=== PATIENT | male | born 1980 | race Caucasian/White ===

== ENCOUNTER 2019-10-20 21:07 | Emergency (ER) | payer BC ==
[2019-10-20] MEDS ORDERED: SODIUM CHLORIDE 0.9% 1,000 ML IV STA (22:05)
--- NOTE | 2019-10-20 22:05 | ED ---
Weakness HPI - General Chief complaint: Weakness Stated complaint: Dizziness/Sob Time Seen by Provider: 10/20/19 21:25 Source: patient, family Mode of arrival: wheelchair Limitations: no limitations - History of Present Illness Initial comments: The patient is a 39-year-old male with past medical history of hypertension and GERD who presents to the emergency room with reported weakness and vertiginous symptoms. The patient was recently hospitalized at [facility] for 6 days. He was diagnosed with pneumonia. He is placed on antibiotics and steroids. Care bronchoscopy performed on Monday which was done under procedural sedation. States he awoke from this procedure and felt terrible however he was discharged from the hospital. Over the past 2 days at home he has had difficulties with ambulation. He states that he can't get up out of bed without feeling is that the room is spinning on him. He also reports to feeling off balance with the sensation that he is cannot pass out. He has been using a urinal at home because of his fear of ambulating. He also reports to a cough, congestion and burning sensation in his chest. He admits to a mild frontal headache. Denies any visual changes. No neck pain or stiffness. Denies abdo angel pain or changes in his bowel or bladder habits. No fevers or chills. He went back into [facility] today however he felt as if they are very dismissive towards him. Boyfriend is at bedside and states that the patient's has been unable to care for himself because of his symptoms. There are no other alleviating, precipitating or modifying factors - Related Data Allergies Allergy/AdvReac Type Severity Reaction Status Date / Time cephalexin [From Keflex] Allergy Rash/Hives Verified 10/20/19 21:23 Penicillins Allergy Rash/Hives Verified 10/20/19 21:23 Review of Systems ROS Statement: Those systems with pertinent positive or pertinent negative responses have been documented in the HPI. ROS Other: All systems not noted in ROS Statement are negative. Past Medical History Past Medical History: Hypertension Additional Past Medical History / Comment(s): kidney stones History of Any Multi-Drug Resistant Organisms: None Reported Past Surgical History: Hernia Repair Past Psychological History: No Psychological Hx Reported Smoking Status: Never smoker Past Alcohol Use History: None Reported Past Drug Use History: None Reported General Exam Limitations: no limitations General appearance: alert, in no apparent distress Head exam: Present: atraumatic, normocephalic, normal inspection Eye exam: Present: normal appearance, PERRL, EOMI. Absent: scleral icterus, conjunctival injection, periorbital swelling ENT exam: Present: normal exam, mucous membranes moist Neck exam: Present: normal inspection. Absent: tenderness, meningismus, lymphadenopathy Respiratory exam: Present: normal lung sounds bilaterally. Absent: respiratory distress, wheezes, rales, rhonchi, stridor Cardiovascular Exam: Present: regular rate, normal rhythm, normal heart sounds. Absent: systolic murmur, diastolic murmur, rubs, gallop, clicks GI/Abdominal exam: Present: soft, normal bowel sounds. Absent: distended, tenderness, guarding, rebound, rigid Extremities exam: Present: normal inspection, full ROM, normal capillary refill. Absent: tenderness, pedal edema, joint swelling, calf tenderness Back exam: Present: normal inspection Neurological exam: Present: alert, oriented X3, CN II-XII intact, abnormal gait, other (The patient does reports truncal ataxia when upright in bed. Ambulation shows the patient does repeatedly fall to the right side. Patient unwilling to perform heel to ron stating he was too weak. Finger to nose is symmetric bilaterally. No lateralizing symptoms. 5/5 muscle strength in all 4 extremities) Psychiatric exam: Present: normal affect, normal mood Skin exam: Present: warm, dry, intact, normal color. Absent: rash Course Vital Signs 10/20/19 21:23 Temperature 97.9 F Pulse Rate 81 Respiratory 18 Rate Blood Pressure 130/87 O2 Sat by Pulse 97 Oximetry EKG Findings - EKG Comments: EKG Findings:: EKG demonstrated normal sinus rhythm with a ventricular rate of 81. [place] interval 152. QRS 80. QTC of 413. No acute ST segment elevations or depressions concerning for ischemic changes. Inferior lead 3 has a Q wave with an inverted T-wave Medical Decision Making - Medical Decision Making Upon arrival the patient is placed into room 23. I did review his paperwork from [facility]. I did recommend repeating laboratory studies and a chest x-ray. Because the patient's vertiginous symptoms I also recommended CT imaging of the brain. Peripheral IV was difficult to establish. Once placed he was given a liter bolus of normal saline. I did offer to provide him with a dose of Valium however the patient did have sedation medication on Monday and states he did not react well to it. Therefore I did give the patient's a dose of meclizine. Laboratory studies are remarkable for a sodium of 133. TSH is 5.5 with a free T4 of 1.4. Urinalysis is negative. Influenza A and B are not detected. chest x-ray demonstrates no acute intrathoracic process. No infiltrate identified. CT angiography of the patient's brain demonstrates no acute strictures or aneurysms of the head or neck. The patient is reevaluated and reports to only mild improvement with the meclizine. I do have the patient sit up in bed. He states he immediately begins to have room spinning. He then attempts to ambulate however continues to fall to the right side. I discussed the diagnosis, differential and treatment options. Because of the patient's symptoms I did recommend transfer to an outside facility with neurology capabilities. I informed him the possible need for an MRI. The patient will go by ambulance. Family at bedside was in agreement with the treatment plan. The patient is currently awaiting transfer in stable condition - Lab Data Result diagrams: 10/20/19 22:47 10/20/19 23:33 Lab Results 10/20/19 10/20/19 10/20/19 Range/Units 00:00 22:42 22:42 WBC (3.8-10.6) k/uL RBC (4.30-5.90) m/uL Hgb (13.0-17.5) gm/dL Hct (39.0-53.0) % MCV (80.0-100.0) fL MCH (25.0-35.0) pg MCHC (31.0-37.0) g/dL RDW (11.5-15.5) % Plt Count (150-450) k/uL Neutrophils % % Lymphocytes % % Monocytes % % Eosinophils % % Basophils % % Neutrophils # (1.3-7.7) k/uL Lymphocytes # (1.0-4.8) k/uL Monocytes # (0-1.0) k/uL Eosinophils # (0-0.7) k/uL Basophils # (0-0.2) k/uL PT (9.0-12.0) sec INR (<1.2) APTT (22.0-30.0) sec Sodium (137-145) mmol/L Potassium (3.5-5.1) mmol/L Chloride (98-107) mmol/L Carbon Dioxide (22-30) mmol/L Anion Gap mmol/L BUN (9-20) mg/dL Creatinine (0.66-1.25) mg/dL Est GFR (CKD-EPI)AfAm (>60 ml/min/1.73 sqM) Est GFR (CKD-EPI)NonAf (>60 ml/min/1.73 sqM) Glucose (74-99) mg/dL Plasma Lactic Acid Gabe (0.7-2.0) mmol/L Calcium (8.4-10.2) mg/dL Magnesium (1.6-2.3) mg/dL Total Bilirubin (0.2-1.3) mg/dL AST (17-59) U/L ALT (4-49) U/L Alkaline Phosphatase (38-126) U/L Creatine Kinase (55-170) U/L Troponin I (0.000-0.034) ng/mL Total Protein (6.3-8.2) g/dL Albumin (3.5-5.0) g/dL TSH (0.465-4.680) mIU/L Free T4 1.47 (0.78-2.19) ng/dL Urine Color Colorless Urine Appearance Clear (Clear) Urine pH 6.5 (5.0-8.0) Ur Specific Loma 1.007 (1.001-1.035) Urine Protein Negative (Negative) Urine Glucose (UA) Negative (Negative) Urine Ketones Negative (Negative) Urine Blood Negative (Negative) Urine Nitrite Negative (Negative) Urine Bilirubin Negative (Negative) Urine Urobilinogen <2.0 (<2.0) mg/dL Ur Leukocyte Esterase Negative (Negative) Influenza Type A RNA Not Detected (Not Detectd) Influenza Type B (PCR) Not Detected (Not Detectd) 10/20/19 10/20/19 10/20/19 Range/Units 22:47 22:47 22:47 WBC 11.0 H (3.8-10.6) k/uL RBC 6.32 H (4.30-5.90) m/uL Hgb 18.2 H (13.0-17.5) gm/dL Hct 53.7 H (39.0-53.0) % MCV 84.9 (80.0-100.0) fL MCH 28.9 (25.0-35.0) pg MCHC 34.0 (31.0-37.0) g/dL RDW 13.2 (11.5-15.5) % Plt Count 295 (150-450) k/uL Neutrophils % 61 % Lymphocytes % 27 % Monocytes % 7 % Eosinophils % 3 % Basophils % 0 % Neutrophils # 6.8 (1.3-7.7) k/uL Lymphocytes # 3.0 (1.0-4.8) k/uL Monocytes # 0.7 (0-1.0) k/uL Eosinophils # 0.4 (0-0.7) k/uL Basophils # 0.0 (0-0.2) k/uL PT (9.0-12.0) sec INR (<1.2) APTT (22.0-30.0) sec Sodium (137-145) mmol/L Potassium (3.5-5.1) mmol/L Chloride (98-107) mmol/L Carbon Dioxide (22-30) mmol/L Anion Gap mmol/L BUN (9-20) mg/dL Creatinine (0.66-1.25) mg/dL Est GFR (CKD-EPI)AfAm (>60 ml/min/1.73 sqM) Est GFR (CKD-EPI)NonAf (>60 ml/min/1.73 sqM) Glucose (74-99) mg/dL Plasma Lactic Acid Gabe 1.5 (0.7-2.0) mmol/L Calcium (8.4-10.2) mg/dL Magnesium (1.6-2.3) mg/dL Total Bilirubin (0.2-1.3) mg/dL AST (17-59) U/L ALT (4-49) U/L Alkaline Phosphatase (38-126) U/L Creatine Kinase (55-170) U/L Troponin I (0.000-0.034) ng/mL Total Protein (6.3-8.2) g/dL Albumin (3.5-5.0) g/dL TSH 5.520 H (0.465-4.680) mIU/L Free T4 (0.78-2.19) ng/dL Urine Color Urine Appearance (Clear) Urine pH (5.0-8.0) Ur Specific Loma (1.001-1.035) Urine Protein (Negative) Urine Glucose (UA) (Negative) Urine Ketones (Negative) Urine Blood (Negative) Urine Nitrite (Negative) Urine Bilirubin (Negative) Urine Urobilinogen (<2.0) mg/dL Ur Leukocyte Esterase (Negative) Influenza Type A RNA (Not Detectd) Influenza Type B (PCR) (Not Detectd) 10/20/19 10/20/19 10/20/19 Range/Units 22:47 22:47 23:33 WBC (3.8-10.6) k/uL RBC (4.30-5.90) m/uL Hgb (13.0-17.5) gm/dL Hct (39.0-53.0) % MCV (80.0-100.0) fL MCH (25.0-35.0) pg MCHC (31.0-37.0) g/dL RDW (11.5-15.5) % Plt Count (150-450) k/uL Neutrophils % % Lymphocytes % % Monocytes % % Eosinophils % % Basophils % % Neutrophils # (1.3-7.7) k/uL Lymphocytes # (1.0-4.8) k/uL Monocytes # (0-1.0) k/uL Eosinophils # (0-0.7) k/uL Basophils # (0-0.2) k/uL PT 9.8 (9.0-12.0) sec INR 0.9 (<1.2) APTT 20.0 L (22.0-30.0) sec Sodium 133 L (137-145) mmol/L Potassium 4.0 (3.5-5.1) mmol/L Chloride 102 (98-107) mmol/L Carbon Dioxide 23 (22-30) mmol/L Anion Gap 8 mmol/L BUN 19 (9-20) mg/dL Creatinine 0.88 (0.66-1.25) mg/dL Est GFR (CKD-EPI)AfAm >90 (>60 ml/min/1.73 sqM) Est GFR (CKD-EPI)NonAf >90 (>60 ml/min/1.73 sqM) Glucose 91 (74-99) mg/dL Plasma Lactic Acid Gabe (0.7-2.0) mmol/L Calcium 8.6 (8.4-10.2) mg/dL Magnesium 2.1 (1.6-2.3) mg/dL Total Bilirubin 1.0 (0.2-1.3) mg/dL AST 33 (17-59) U/L ALT 53 H (4-49) U/L Alkaline Phosphatase 39 (38-126) U/L Creatine Kinase 30 L (55-170) U/L Troponin I <0.012 (0.000-0.034) ng/mL Total Protein 6.2 L (6.3-8.2) g/dL Albumin 3.6 (3.5-5.0) g/dL TSH (0.465-4.680) mIU/L Free T4 (0.78-2.19) ng/dL Urine Color Urine Appearance (Clear) Urine pH (5.0-8.0) Ur Specific Loma (1.001-1.035) Urine Protein (Negative) Urine Glucose (UA) (Negative) Urine Ketones (Negative) Urine Blood (Negative) Urine Nitrite (Negative) Urine Bilirubin (Negative) Urine Urobilinogen (<2.0) mg/dL Ur Leukocyte Esterase (Negative) Influenza Type A RNA (Not Detectd) Influenza Type B (PCR) (Not Detectd) Disposition Clinical Impression: Vertigo Disposition: OTHER INSTITUTION NOT DEFINED Condition: Stable Is patient prescribed a controlled substance at d/c from ED?: No Referrals: Son Woody MD [Primary Care Provider] - 1-2 days Time of Disposition: 01:34 - Out of Hospital Transfer - Req. Specs Out of Hospital Transfer - Requested Specifics: Other Emergency Center ([facility])
[2019-10-20] MEDS ORDERED: MECLIZINE 12.5 MG TAB PO STA (22:06)
[2019-10-20 23:10] LABS: Appearance,Urine Clear (Clear); Bilirubin,Urine Negative (Negative); Blood,Urine Negative (Negative); Color,Urine Colorless; Glucose,Urine (UA) Negative (Negative); Ketones,Urine Negative (Negative); Leukocyte Esterase,Urine Negative (Negative); Nitrite,Urine Negative (Negative); PH, Urine 6.5 (5.0-8.0); Protein,Urine Negative (Negative); Specific Gravity,Urine 1.007 (1.001-1.035); Urobilinogen,Urine <2.0 mg/dL (<2.0)
[2019-10-20 23:12] LABS: Basophils % (A) 0 %; Eosinophils # (A) 0.4 k/uL (0-0.7); Eosinophils % (A) 3 %; HCT 53.7 % (39.0-53.0); HGB 18.2 gm/dL (13.0-17.5); Lymphocytes % (A) 27 %; MCH 28.9 pg (25.0-35.0); MCV 84.9 fL (80.0-100.0); Mean Platelet Volume 6.8; Monocytes # (A) 0.7 k/uL (0-1.0); Monocytes % (A) 7 %; Neutrophils # (A) 6.8 k/uL (1.3-7.7); Neutrophils % (A) 61 %; Platelet Count 295 k/uL (150-450); RBC 6.32 m/uL (4.30-5.90); RDW 13.2 % (11.5-15.5)
[2019-10-20 23:24] LABS: INR 0.9 (<1.2); Prothrombin Time 9.8 sec (9.0-12.0)
[2019-10-20 23:53] LABS: ALT 53 U/L (4-49); AST 33 U/L (17-59); African American GFR (CKD) >90 (>60 ml/min/1.73 sqM); Albumin 3.6 g/dL (3.5-5.0); Alkaline Phosphatase 39 U/L (38-126); Anion Gap 8 mmol/L; Blood Urea Nitrogen 19 mg/dL (9-20); Calcium 8.6 mg/dL (8.4-10.2); Carbon Dioxide 23 mmol/L (22-30); Chloride 102 mmol/L (98-107); Creatine Kinase 30 U/L (55-170); Glucose 91 mg/dL (74-99); Magnesium 2.1 mg/dL (1.6-2.3); Non-African American GFR(CKD) >90 (>60 ml/min/1.73 sqM); Sodium 133 mmol/L (137-145); Total Protein 6.2 g/dL (6.3-8.2)
--- NOTE | 2019-10-21 00:13 | XR ---
EXAMINATION TYPE: XR chest 2V DATE OF EXAM: 10/20/2019 COMPARISON: NONE HISTORY: Weakness TECHNIQUE: FINDINGS: Heart is normal. Lungs are clear of infiltrate. There is no heart failure. Costophrenic ang les are clear. There are no hilar masses. There are chest leads. IMPRESSION: No active cardiopulmonary disease. Normal heart.
--- NOTE | 2019-10-21 00:18 | CT ---
EXAMINATION TYPE: CT angio head neck DATE OF EXAM: 10/20/2019 COMPARISON: None HISTORY: PATTI and Dizziness CT DLP: 771.3 mGycm Automated exposure control for dose reduction was used. CONTRAST: Performed with IV Contrast, patient injected with 65 mL of Isovue 370. Multiple axial sections were obtained from the aortic arch to the vertex of the brain with intravenou s contrast. There are 3-D post processed images. FINDINGS: There is normal branching pattern of the great vessels on the aortic arch. Thyroid gland appears norm al. There is arterial flow in both subclavian arteries. There is arterial flow in the common internal and external carotid arteries bilaterally. There is nj ateral arterial flow in the vertebral arteries. There is arterial flow in the vertebrobasilar artery system. There is no evidence of carotid or vertebral artery aneurysm or dissection. Carotid and vertebral art eries appear widely patent. There is arterial flow in the anterior middle and posterior cerebral arteries. There is arterial flow in the anterior middle and posterior cerebral arteries. There is normal contrast opacification of th e venous sinuses. I see no evidence of intracranial arterial stenosis. There is no intracranial aneur ysm or neovascularity. There is no mass effect. The right anterior cerebral artery is relatively smal l compared to the left. IMPRESSION: Negative CT angiogram of the neck. Negative CT angiogram of the brain.
[2019-10-21 01:35] VITALS: TEMP 97.3
[2019-10-21 01:45] VITALS: BP 121/88; PULSE 74; RESP 18
== END 2019-10-21 01:51 | disposition other institution (70) ==
LOC: EC 21:07
DX: R42 Dizziness and giddiness (principal); R53.1 Weakness; I10 Essential (primary) hypertension; Z88.1 Allergy status to other antibiotic agents; Z88.0 Allergy status to penicillin; Z87.01 Personal history of pneumonia (recurrent)
CPT/HCPCS: 36415; 93005; 84439; 80053; 82550; 83605; 83735; 84443; 84484; 85025; 85610; 85730; 81003; 87502; 71046; 70496; 70498; 99285; 96360; 96361 ×2; Q9967

== ENCOUNTER 2019-10-27 09:44 | Emergency (ER) | payer BC ==
[2019-10-27] MEDS ORDERED: SODIUM CHLORIDE 0.9% 1,000 ML IV STA (10:33)
[2019-10-27] MEDS ORDERED: DIAZEPAM 5 MG/ML 2 ML INJ IVP STA (10:37)
[2019-10-27 10:57] LABS: Basophils % (A) 1 %; Eosinophils # (A) 0.2 k/uL (0-0.7); Eosinophils % (A) 2 %; HCT 53.2 % (39.0-53.0); HGB 17.5 gm/dL (13.0-17.5); Lymphocytes # (A) 2.2 k/uL (1.0-4.8); Lymphocytes % (A) 24 %; MCH 28.4 pg (25.0-35.0); MCHC 32.9 g/dL (31.0-37.0); MCV 86.3 fL (80.0-100.0); Mean Platelet Volume 6.9; Monocytes # (A) 0.6 k/uL (0-1.0); Monocytes % (A) 6 %; Neutrophils # (A) 6.1 k/uL (1.3-7.7); Neutrophils % (A) 66 %; Platelet Count 241 k/uL (150-450); RBC 6.16 m/uL (4.30-5.90); RDW 13.3 % (11.5-15.5); WBC 9.3 k/uL (3.8-10.6)
[2019-10-27 11:08] LABS: ALT 47 U/L (4-49); AST 29 U/L (17-59); African American GFR (CKD) >90 (>60 ml/min/1.73 sqM); Albumin 4.6 g/dL (3.5-5.0); Alkaline Phosphatase 36 U/L (38-126); Anion Gap 11 mmol/L; Blood Urea Nitrogen 17 mg/dL (9-20); Calcium 9.8 mg/dL (8.4-10.2); Carbon Dioxide 23 mmol/L (22-30); Chloride 106 mmol/L (98-107); Glucose 89 mg/dL (74-99); Non-African American GFR(CKD) >90 (>60 ml/min/1.73 sqM); Potassium 4.5 mmol/L (3.5-5.1); Sodium 140 mmol/L (137-145); Total Bilirubin 1.2 mg/dL (0.2-1.3); Total Protein 7.7 g/dL (6.3-8.2)
--- NOTE | 2019-10-27 11:09 | ED ---
General Adult HPI - General Source: patient, RN notes reviewed Mode of arrival: ambulatory Limitations: no limitations <Ángel Dickson - Last Filed: 10/27/19 12:13> <Leah Aquino - Last Filed: 10/27/19 23:12> - General Chief complaint: Dizziness Stated complaint: Weak,Pneumonia Time Seen by Provider: 10/27/19 10:09 - History of Present Illness Initial comments: 39-year-old male presents to the emergency department for a chief complaint of muscle aches and pains. Patient states that he was diagnosed with pneumonia several weeks ago and treated with IV antibiotics for 6 days. States shortly afterwards he started to have dizziness and was transferred to [facility] where he was diagnosed with viral infection of his vestibular nerve. States he has been seeing his doctor and has an appointment in 2 days for a follow-up and to schedule an appointment with a neuropsychiatrist. However today patient started to have muscle spasming. States that he feels all his muscles are spasming including his throat. Patient is resting comfortable in no respiratory distress. Patient states he has an intense feeling of cold throughout his entire body that he has had it since he had pneumonia. Denies any fevers. Patient has no other complaints at this time including shortness of breath, chest pain, abdominal pain, nausea or vomiting, headache, or visual changes. (Ángel Dickson) - Related Data Allergies Allergy/AdvReac Type Severity Reaction Status Date / Time cephalexin [From Keflex] Allergy Rash/Hives Verified 10/27/19 09:47 Penicillins Allergy Rash/Hives Verified 10/27/19 09:47 Review of Systems ROS Other: All systems not noted in ROS Statement are negative. <Ángel Dickson - Last Filed: 10/27/19 12:13> ROS Other: All systems not noted in ROS Statement are negative. <Leah Aquino - Last Filed: 10/27/19 23:12> ROS Statement: Those systems with pertinent positive or pertinent negative responses have been documented in the HPI. Past Medical History Past Medical History: Hypertension, Pneumonia Additional Past Medical History / Comment(s): kidney stones History of Any Multi-Drug Resistant Organisms: None Reported Past Surgical History: Hernia Repair Additional Past Surgical History / Comment(s): bronchoscopy Past Psychological History: No Psychological Hx Reported Smoking Status: Never smoker Past Alcohol Use History: None Reported Past Drug Use History: None Reported <Ángel Dickson - Last Filed: 10/27/19 12:13> General Exam Limitations: no limitations General appearance: alert, in no apparent distress Head exam: Present: atraumatic, normocephalic, normal inspection Eye exam: Present: normal appearance, PERRL, EOMI. Absent: scleral icterus, conjunctival injection, periorbital swelling ENT exam: Present: normal exam, normal oropharynx (Uvula Midline, no tonsillar exudates bilaterally, no evidence for abscess.), mucous membranes moist, TM's normal bilaterally, normal external ear exam Neck exam: Present: normal inspection, full ROM. Absent: tenderness, meningismus, lymphadenopathy Respiratory exam: Present: normal lung sounds bilaterally. Absent: respiratory distress, wheezes, rales, rhonchi, stridor Cardiovascular Exam: Present: regular rate, normal rhythm, normal heart sounds. Absent: systolic murmur, diastolic murmur, rubs, gallop, clicks GI/Abdominal exam: Present: soft, normal bowel sounds. Absent: distended, tenderness, guarding, rebound, rigid Neurological exam: Present: alert <Ángel Dickson P - Last Filed: 10/27/19 12:13> Course Vital Signs 10/27/19 10/27/19 10/27/19 09:47 09:51 10:51 Temperature 97.8 F Pulse Rate 66 68 Respiratory 18 20 20 Rate Blood Pressure 118/78 121/70 O2 Sat by Pulse 98 96 Oximetry 10/27/19 10/27/19 11:00 12:27 Temperature 98 F Pulse Rate 69 61 Respiratory 20 18 Rate Blood Pressure 123/66 119/75 O2 Sat by Pulse 96 96 Oximetry Medical Decision Making - Lab Data Result diagrams: 10/27/19 10:22 10/27/19 10:22 <Ángel Dickson - Last Filed: 10/27/19 12:13> - Lab Data Result diagrams: 10/27/19 10:22 10/27/19 10:22 <Leah Aquino - Last Filed: 10/27/19 23:12> - Medical Decision Making Vitals are stable. Patient is well-appearing, resting comfortably in bed. He is afebrile. Neurologic exam is unremarkable. Patient is well-appearing. He is able to swallow without difficulty. Handling secretions, no respiratory distress. CBC CMP unremarkable. Chest x-ray showing a right lower lobe scarring versus atelectasis. Discussed findings with patient. At this time I do not see emergent cause of keeping patient in the hospital. However he does have an appointment with his primary care provider in 2 days for follow-up. Patient's primary care provider is very up-to-date on patient's recent hospitalizations and patient feels comfortable following up with him. I did discuss return parameters and patient and his significant other are agreeable to this. (Ángel Dickson) I was available for consultation in the emergency department. The history and physical exam were done by the midlevel provider. [facility] I reviewed the case with the midlevel provider and based on their presentation of the patient, I agree with the assessment, medical decision making and plan of care as documented. Chart was dictated using [employer] dictation software. Attempts were made to correct any dictation errors however some typographical errors may persist. (Leah Aquino) - Lab Data Lab Results 10/27/19 10/27/19 Range/Units 10:22 10:22 WBC 9.3 (3.8-10.6) k/uL RBC 6.16 H (4.30-5.90) m/uL Hgb 17.5 (13.0-17.5) gm/dL Hct 53.2 H (39.0-53.0) % MCV 86.3 (80.0-100.0) fL MCH 28.4 (25.0-35.0) pg MCHC 32.9 (31.0-37.0) g/dL RDW 13.3 (11.5-15.5) % Plt Count 241 (150-450) k/uL Neutrophils % 66 % Lymphocytes % 24 % Monocytes % 6 % Eosinophils % 2 % Basophils % 1 % Neutrophils # 6.1 (1.3-7.7) k/uL Lymphocytes # 2.2 (1.0-4.8) k/uL Monocytes # 0.6 (0-1.0) k/uL Eosinophils # 0.2 (0-0.7) k/uL Basophils # 0.0 (0-0.2) k/uL Sodium 140 (137-145) mmol/L Potassium 4.5 (3.5-5.1) mmol/L Chloride 106 (98-107) mmol/L Carbon Dioxide 23 (22-30) mmol/L Anion Gap 11 mmol/L BUN 17 (9-20) mg/dL Creatinine 0.84 (0.66-1.25) mg/dL Est GFR (CKD-EPI)AfAm >90 (>60 ml/min/1.73 sqM) Est GFR (CKD-EPI)NonAf >90 (>60 ml/min/1.73 sqM) Glucose 89 (74-99) mg/dL Calcium 9.8 (8.4-10.2) mg/dL Magnesium 2.0 (1.6-2.3) mg/dL Total Bilirubin 1.2 (0.2-1.3) mg/dL AST 29 (17-59) U/L ALT 47 (4-49) U/L Alkaline Phosphatase 36 L (38-126) U/L Total Protein 7.7 (6.3-8.2) g/dL Albumin 4.6 (3.5-5.0) g/dL Disposition Is patient prescribed a controlled substance at d/c from ED?: No Time of Disposition: 12:14 <Ángel Dickson P - Last Filed: 10/27/19 12:13> <Leah Aquino A - Last Filed: 10/27/19 23:12> Clinical Impression: Muscle ache Disposition: HOME SELF-CARE Condition: Good Instructions (If sedation given, give patient instructions): Leg Cramps (ED) Additional Instructions: Drink plenty of fluids. Follow up with your primary care provider in one to 2 days. Return here to the emergency department if you have any worsening symp toms. Referrals: Son Woody MD [Primary Care Provider] - 1-2 days
--- NOTE | 2019-10-27 11:53 | XR ---
EXAMINATION TYPE: XR chest 2V DATE OF EXAM: 10/27/2019 HISTORY: history of PNA. REFERENCE: Previous study dated 10/20/2019. FINDINGS: The heart is mildly prominent. There is some scarring or atelectasis in the right midlung. Lungs otherwise clear. Pleural spaces are clear. IMPRESSION: 1. MILD CARDIOMEGALY. 2. SCARRING VERSUS ATELECTASIS, RIGHT MIDLUNG.
[2019-10-27 12:28] VITALS: BP 119/75; PULSE 61; RESP 18; TEMP 98
== END 2019-10-27 12:25 | disposition home or self-care (01) ==
LOC: EC 09:44
DX: M79.10 Myalgia, unspecified site (principal); I10 Essential (primary) hypertension; Z88.0 Allergy status to penicillin; Z88.1 Allergy status to other antibiotic agents
CPT/HCPCS: 36415; 80053; 83735; 85025; 71046; 99284; 96374; 96361; J3360

== ENCOUNTER 2019-11-03 20:05 | Observation (INO) | payer BC ==
[2019-11-03] MEDS ORDERED: ASPIRIN 81 MG PO STA (21:16)
[2019-11-03 21:28] LABS: ALT 53 U/L (4-49); AST 34 U/L (17-59); African American GFR (CKD) >90 (>60 ml/min/1.73 sqM); Albumin 5.3 g/dL (3.5-5.0); Alkaline Phosphatase 42 U/L (38-126); Anion Gap 12 mmol/L; Blood Urea Nitrogen 16 mg/dL (9-20); Calcium 10.2 mg/dL (8.4-10.2); Carbon Dioxide 25 mmol/L (22-30); Chloride 102 mmol/L (98-107); Glucose 120 mg/dL (74-99); Magnesium 2.1 mg/dL (1.6-2.3); Non-African American GFR(CKD) >90 (>60 ml/min/1.73 sqM); Sodium 139 mmol/L (137-145); Total Bilirubin 0.9 mg/dL (0.2-1.3); Total Protein 8.5 g/dL (6.3-8.2)
[2019-11-03 21:37] LABS: INR 0.9 (<1.2); Partial Thromboplastin Time 23.8 sec (22.0-30.0); Prothrombin Time 9.6 sec (9.0-12.0)
--- NOTE | 2019-11-03 21:37 | XR ---
EXAMINATION TYPE: XR chest 2V DATE OF EXAM: 11/03/2019 COMPARISON: 10/27/2019 HISTORY: Weakness. Difficulty breathing TECHNIQUE: FINDINGS: Heart and mediastinum are normal. Lungs are clear of consolidation. There is no heart failu re. There are no hilar masses. Bony thorax is intact. IMPRESSION: No active cardiopulmonary disease. Normal heart. No change.
[2019-11-03 21:44] LABS: Basophils % (A) 0 %; Eosinophils # (A) 0.2 k/uL (0-0.7); Eosinophils % (A) 2 %; HCT 51.4 % (39.0-53.0); HGB 17.5 gm/dL (13.0-17.5); Lymphocytes # (A) 2.3 k/uL (1.0-4.8); Lymphocytes % (A) 28 %; MCHC 34.1 g/dL (31.0-37.0); Mean Platelet Volume 6.6; Monocytes # (A) 0.6 k/uL (0-1.0); Monocytes % (A) 7 %; Neutrophils # (A) 4.9 k/uL (1.3-7.7); Neutrophils % (A) 59 %; Platelet Count 282 k/uL (150-450); RBC 6.04 m/uL (4.30-5.90); RDW 13.1 % (11.5-15.5); WBC 8.3 k/uL (3.8-10.6)
[2019-11-04] MEDS ORDERED: NALOXONE 0.4 MG/ML 1 ML VIAL IV PRN (00:05)
[2019-11-04] MEDS ORDERED: MORPHINE SULFATE 4 MG/ML SYRINGE IV PRN (00:05)
[2019-11-04] MEDS ORDERED: ALPRAZolam 0.25 MG TAB PO PRN (00:05)
--- NOTE | 2019-11-04 00:05 | ED ---
SOB HPI - General Chief Complaint: Shortness of Breath Stated Complaint: PATTI Time Seen by Provider: 11/03/19 20:34 Source: patient Mode of arrival: ambulatory Limitations: no limitations - History of Present Illness Initial Comments: 39-year-old male presents today for chief complaint of chest pressure shortness of breath. Patient states he was recently discharged from a 6 day stay at [facility] for pneumonia. He states the diagnosis was "missed 6 times" before they did bronchoscopy and noted an "80% blockage". Patient states he has had shortness of breath sine discharge and chest pressure since 3PM. Patient states at this hospitalization in September he had a stress test that was (-). Patient states at times he has experienced this chest pressur it comes and goes. Patient denies leg swelling, hemoptysis, calf swelling/pain, history of DVT/PE, recent surgery besides bronchoscopy, hormone use, history of active cancer. Patient denies IVDU, history of VT, lifelong nonsmoker, history of HTN, no known DM. Patient unknown if he has high cholesterol. patient denies any other complaints, aside from feeling so SOB he could pass out and chest pressure. Ptient has no history of a syncopal episdoe. Patient on arrival appears well th ere is no signs of acute distress. - Related Data Allergies Allergy/AdvReac Type Severity Reaction Status Date / Time acetaminophen [From Tylenol] Allergy Rash/Hives Verified 11/03/19 20:11 cephalexin [From Keflex] Allergy Rash/Hives Verified 10/27/19 09:47 Penicillins Allergy Rash/Hives Verified 10/27/19 09:47 Review of Systems ROS Statement: Those systems with pertinent positive or pertinent negative responses have been documented in the HPI. ROS Other: All systems not noted in ROS Statement are negative. Past Medical History Past Medical History: Hypertension, Pneumonia Additional Past Medical History / Comment(s): kidney stones History of Any Multi-Drug Resistant Organisms: None Reported Past Surgical History: Hernia Repair Additional Past Surgical History / Comment(s): bronchoscopy Past Psychological History: No Psychological Hx Reported Smoking Status: Never smoker Past Alcohol Use History: None Reported Past Drug Use History: None Reported General Exam - General Exam Comments Initial Comments: General: The patient is awake and alert, in no distress, and does not appear acutely ill. Eye: +3 mm pupils are equal, round and reactive to light, extra-ocular movements are intact. No nystagmus. There is normal conjunctiva bilaterally. No signs of icterus. Ears, nose, mouth and throat: There are moist mucous membranes and no oral lesions. Neck: The neck is supple, there is no tenderness or JVD. Cardiovascular: There is a regular rate and rhythm. No murmur, rub or gallop is appreciated. Respiratory: Lungs are clear to auscultation, respirations are non-labored, breath sounds are equal. No wheezes, stridor, rales, or rhonchi. Gastrointestinal: Soft, non-distended, non-tender abdomen without masses or organomegaly noted. There is no rebound or guarding present. Musculoskeletal: Normal ROM, no tenderness. Strength 5/5. Sensation intact. Radial and DP pulses equal bilaterally 2+. Neurological: A&O x 3. CN II-XII intact grossly, There are no obvious motor or sensory deficits. Coordination appears grossly intact. Speech is normal. Skin: Skin is warm and dry and no rashes or lesions are noted. no LE swelling, no calf pain to palation Psychiatric: Cooperative, appropriate mood & affect, normal judgment. Limitations: no limitations Course Vital Signs 11/03/19 11/03/19 11/03/19 20:07 21:58 22:00 Temperature 98.2 F Pulse Rate 74 71 Respiratory 20 20 20 Rate Blood Pressure 116/78 123/70 O2 Sat by Pulse 98 95 Oximetry Medical Decision Making - Medical Decision Making 39-year-old male presented for chest pressure, shortness of breath. Patient will obese. Initial and second troponin (-). Oxygen saturation well. Ambulatory no desaturation. Patient CXR clear. Patient heart no murmur. Patient EKG no ischemic findings. Patient BNP wihtin normal limits. No tachycardia. Peripheral exam findings unremarkable. No leukocytosis/fevers. Chest pressure and SOB persists. Discussed case with Dr. stevens who recommends admission for further evaluation. Patient agreeable. - Lab Data Result diagrams: 11/03/19 21:00 11/03/19 21:00 Lab Results 11/03/19 11/03/19 11/03/19 Range/Units 21:00 21:00 21:00 WBC 8.3 (3.8-10.6) k/uL RBC 6.04 H (4.30-5.90) m/uL Hgb 17.5 (13.0-17.5) gm/dL Hct 51.4 (39.0-53.0) % MCV 85.0 (80.0-100.0) fL MCH 29.0 (25.0-35.0) pg MCHC 34.1 (31.0-37.0) g/dL RDW 13.1 (11.5-15.5) % Plt Count 282 (150-450) k/uL Neutrophils % 59 % Lymphocytes % 28 % Monocytes % 7 % Eosinophils % 2 % Basophils % 0 % Neutrophils # 4.9 (1.3-7.7) k/uL Lymphocytes # 2.3 (1.0-4.8) k/uL Monocytes # 0.6 (0-1.0) k/uL Eosinophils # 0.2 (0-0.7) k/uL Basophils # 0.0 (0-0.2) k/uL PT 9.6 (9.0-12.0) sec INR 0.9 (<1.2) APTT 23.8 (22.0-30.0) sec Sodium 139 (137-145) mmol/L Potassium 4.0 (3.5-5.1) mmol/L Chloride 102 (98-107) mmol/L Carbon Dioxide 25 (22-30) mmol/L Anion Gap 12 mmol/L BUN 16 (9-20) mg/dL Creatinine 0.97 (0.66-1.25) mg/dL Est GFR (CKD-EPI)AfAm >90 (>60 ml/min/1.73 sqM) Est GFR (CKD-EPI)NonAf >90 (>60 ml/min/1.73 sqM) Glucose 120 H (74-99) mg/dL Plasma Lactic Acid Gabe (0.7-2.0) mmol/L Calcium 10.2 (8.4-10.2) mg/dL Magnesium 2.1 (1.6-2.3) mg/dL Total Bilirubin 0.9 (0.2-1.3) mg/dL AST 34 (17-59) U/L ALT 53 H (4-49) U/L Alkaline Phosphatase 42 (38-126) U/L Troponin I (0.000-0.034) ng/mL NT-Pro-B Natriuret Pep pg/mL Total Protein 8.5 H (6.3-8.2) g/dL Albumin 5.3 H (3.5-5.0) g/dL 11/03/19 11/03/19 11/03/19 Range/Units 21:00 21:00 21:00 WBC (3.8-10.6) k/uL RBC (4.30-5.90) m/uL Hgb (13.0-17.5) gm/dL Hct (39.0-53.0) % MCV (80.0-100.0) fL MCH (25.0-35.0) pg MCHC (31.0-37.0) g/dL RDW (11.5-15.5) % Plt Count (150-450) k/uL Neutrophils % % Lymphocytes % % Monocytes % % Eosinophils % % Basophils % % Neutrophils # (1.3-7.7) k/uL Lymphocytes # (1.0-4.8) k/uL Monocytes # (0-1.0) k/uL Eosinophils # (0-0.7) k/uL Basophils # (0-0.2) k/uL PT (9.0-12.0) sec INR (<1.2) APTT (22.0-30.0) sec Sodium (137-145) mmol/L Potassium (3.5-5.1) mmol/L Chloride (98-107) mmol/L Carbon Dioxide (22-30) mmol/L Anion Gap mmol/L BUN (9-20) mg/dL Creatinine (0.66-1.25) mg/dL Est GFR (CKD-EPI)AfAm (>60 ml/min/1.73 sqM) Est GFR (CKD-EPI)NonAf (>60 ml/min/1.73 sqM) Glucose (74-99) mg/dL Plasma Lactic Acid Gabe 2.0 (0.7-2.0) mmol/L Calcium (8.4-10.2) mg/dL Magnesium (1.6-2.3) mg/dL Total Bilirubin (0.2-1.3) mg/dL AST (17-59) U/L ALT (4-49) U/L Alkaline Phosphatase (38-126) U/L Troponin I <0.012 (0.000-0.034) ng/mL NT-Pro-B Natriuret Pep 31 pg/mL Total Protein (6.3-8.2) g/dL Albumin (3.5-5.0) g/dL 11/03/19 Range/Units 23:05 WBC (3.8-10.6) k/uL RBC (4.30-5.90) m/uL Hgb (13.0-17.5) gm/dL Hct (39.0-53.0) % MCV (80.0-100.0) fL MCH (25.0-35.0) pg MCHC (31.0-37.0) g/dL RDW (11.5-15.5) % Plt Count (150-450) k/uL Neutrophils % % Lymphocytes % % Monocytes % % Eosinophils % % Basophils % % Neutrophils # (1.3-7.7) k/uL Lymphocytes # (1.0-4.8) k/uL Monocytes # (0-1.0) k/uL Eosinophils # (0-0.7) k/uL Basophils # (0-0.2) k/uL PT (9.0-12.0) sec INR (<1.2) APTT (22.0-30.0) sec Sodium (137-145) mmol/L Potassium (3.5-5.1) mmol/L Chloride (98-107) mmol/L Carbon Dioxide (22-30) mmol/L Anion Gap mmol/L BUN (9-20) mg/dL Creatinine (0.66-1.25) mg/dL Est GFR (CKD-EPI)AfAm (>60 ml/min/1.73 sqM) Est GFR (CKD-EPI)NonAf (>60 ml/min/1.73 sqM) Glucose (74-99) mg/dL Plasma Lactic Acid Gabe (0.7-2.0) mmol/L Calcium (8.4-10.2) mg/dL Magnesium (1.6-2.3) mg/dL Total Bilirubin (0.2-1.3) mg/dL AST (17-59) U/L ALT (4-49) U/L Alkaline Phosphatase (38-126) U/L Troponin I <0.012 (0.000-0.034) ng/mL NT-Pro-B Natriuret Pep pg/mL Total Protein (6.3-8.2) g/dL Albumin (3.5-5.0) g/dL Disposition Clinical Impression: Chest pressure, Shortness of breath Disposition: ADMITTED IP TO THIS HOSP Condition: Stable Is patient prescribed a controlled substance at d/c from ED?: No Referrals: Son Woody MD [Primary Care Provider] - 1-2 days Time of Disposition: 00:04 Decision to Admit Reason: Admit from EC Decision Date: 11/04/19 Decision Time: 00:04
[2019-11-04] MEDS: SODIUM CHLORIDE 0.9% 1,000 ML IV SCH ×2 (00:32→22:12)
--- NOTE | 2019-11-04 16:25 | P.HPIM ---
History of Present Illness This is a pleasant 39 years old male with past medical history of hypertension, pneumonia, kidney stone, status post bronchoscopy. COPD, pulmonary nodule, recent right upper lobe pneumonia, bronchitis, possible obstructive sleep apnea, obesity. He is a patient of Dr. Woody. he was recently discharge from [facility] for pneumonia and copd . Patient sitting since September every day he has symptoms of hot flashes, numbness and tingling or just feeling cold and his right leg associated with some light headedness and episodic dyspnea, as per patient he states is been evaluated by local owner operator truck driver and urologist before for his numbness as well as by industrial truck operator for his heart including last month with negative stress test and they found everything fine for him, also patient was complaining of from right hip headedness but states his multiple been checked before. Patient has been evaluated before by industrial truck operator on 10/02/2039 current chest pain which patient describes is the same chest pain, at that time industrial truck operator for this is atypical chest pain with normal cardiac enzymes no ischemic changes on the EKG and underwent echocardiogram, revealed no stress-induced ischemia and cartilage cleared him for discharge for follow up with Dr. Villarreal in 2-3 weeks, during this admission as his troponins were negative at less than 0.0122, no ekg done , we are going to order another EKG Also patient has been asking to be evaluated by physical therapy in case he needs rehab, stating he has home healthcare at home Patient currently is breathing quietly, chest examination shows good air entry with no wheezing or crepitation, he is saturating 98% on room air Review of Systems CONSTITUTIONAL: No fever, no malaise, no fatigue. HEENT: No recent visual problems or hearing problems. Denied any sore throat. CARDIOVASCULAR: No orthopnea, PND, no palpitations, no syncope. PULMONARY: No shortness of breath, no cough, no hemoptysis. GASTROINTESTINAL: No diarrhea, no nausea, no vomiting, no abdominal pain. Normoactive bowel sounds. NEUROLOGICAL: No headaches, no weakness, no numbness. HEMATOLOGICAL: Denies any bleeding or petechiae. GENITOURINARY: Denies any burning micturition, frequency, or urgency. MUSCULOSKELETAL/RHEUMATOLOGICAL: Denies any joint pain, swelling, or any muscle pain. ENDOCRINE: Denies any polyuria or polydipsia. Past Medical History Past Medical History: Hypertension, Pneumonia Additional Past Medical History / Comment(s): kidney stones History of Any Multi-Drug Resistant Organisms: None Reported Past Surgical History: Hernia Repair Additional Past Surgical History / Comment(s): bronchoscopy Past Psychological History: No Psychological Hx Reported Smoking Status: Never smoker Past Alcohol Use History: None Reported Past Drug Use History: None Reported Medications and Allergies Home Medications Medication Instructions Recorded Confirmed Type Atenolol 25 mg PO DAILY@1200 11/04/19 11/04/19 History Cetirizine HCl [Zyrtec] 10 mg PO DAILY 11/04/19 11/04/19 History LORazepam [Ativan] 0.5 mg PO BID PRN 11/04/19 11/04/19 History Meclizine [Antivert] 25 mg PO TID PRN 11/04/19 11/04/19 History Omeprazole/Sodium Bicarbonate 1 cap PO DAILY 11/04/19 11/04/19 History [Omeppi 40 mg-1,100 mg Capsule] Allergies Allergy/AdvReac Type Severity Reaction Status Date / Time acetaminophen [From Tylenol] Allergy Rash/Hives Verified 11/04/19 11:18 cephalexin [From Keflex] Allergy Rash/Hives Verified 11/04/19 11:18 Penicillins Allergy Rash/Hives Verified 11/04/19 11:18 Physical Exam Vitals: Vital Signs Temp Pulse Pulse Resp BP BP BP 11/04/19 12:00 59 L 18 11/04/19 11:30 98.3 F 59 L 18 93/59 11/04/19 08:00 18 11/04/19 07:47 97.5 F L 63 18 108/74 11/04/19 07:11 11/04/19 07:08 54 L 18 98/62 11/04/19 04:00 56 L 20 123/79 11/04/19 03:00 11/04/19 02:00 11/04/19 01:00 11/04/19 00:00 74 20 125/82 11/03/19 23:00 11/03/19 22:00 20 11/03/19 21:58 71 20 123/70 11/03/19 20:07 98.2 F 74 20 116/78 Pulse Ox 11/04/19 12:00 11/04/19 11:30 98 11/04/19 08:00 03/09/20 07:47 96 11/04/19 07:11 99 11/04/19 07:08 99 11/04/19 04:00 95 11/04/19 03:00 94 L 11/04/19 02:00 94 L 11/04/19 01:00 93 L 11/04/19 00:00 95 11/03/19 23:00 96 11/03/19 22:00 96 11/03/19 21:58 95 11/03/19 20:07 98 Intake and Output 11/04/19 11/04/19 11/04/19 06:59 14:59 22:59 Intake Total 480 Balance 480 Intake: Oral 480 Other: # Voids 2 Weight 124.738 kg GENERAL: The patient is alert and oriented x3, not in any acute distress. Well developed, well nourished. HEENT: Pupils are round and equally reacting to light. EOMI. No scleral icterus. No conjunctival pallor. Normocephalic, atraumatic. No pharyngeal erythema. No thyromegaly. CARDIOVASCULAR: S1 and S2 present. No murmurs, rubs, or gallops. PULMONARY: Chest is clear to auscultation, no wheezing or crackles. ABDOMEN: Soft, nontender, nondistended, normoactive bowel sounds. No palpable organomegaly. MUSCULOSKELETAL: No joint swelling or deformity. EXTREMITIES: No cyanosis, clubbing, or pedal edema. NEUROLOGICAL: Gross neurological examination did not reveal any focal deficits. SKIN: No rashes. No petechiae Results CBC & Chem 7: 11/03/19 21:00 11/03/19 21:00 Labs: Abnormal Lab Results - Last 24 Hours (Table) 11/03/19 11/03/19 Range/Units 21:00 21:00 RBC 6.04 H (4.30-5.90) m/uL Glucose 120 H (74-99) mg/dL ALT 53 H (4-49) U/L Total Protein 8.5 H (6.3-8.2) g/dL Albumin 5.3 H (3.5-5.0) g/dL Thrombosis Risk Factor Assmnt - Choose All That Apply Any of the Below Risk Factors Present?: No Assessment and Plan Assessment: Recurrent chest pressure with negative troponin, he has been evaluated by industrial truck operator recently with no stress-induced ischemia found an echocardiogram Episodic dyspnea Lightheadedness associated with numbness in his right leg Recent history of pneumonia Hypertension Pulmonary nodule Possible history of sleep apnea Obesity History of kidney stone and cyst Plan: This is a pleasant 39 years old male who presents with nonspecific symptoms of some dyspnea and lightheadedness, chest pressure and numbness in his right leg last time his been evaluated by Dr. Davis, we'll call Dr. Davis for consulting us is known for the patient also will call neurology consult Labs and medication were reviewed.. Continue same treatment. Continue with symptomatic treatment. Resume home medication. Monitor lytes and vitals. DVT and GI prophylaxis. Further recommendations of the clinical course of the patient DVT prophylaxis: Subcutaneous heparin GI Prophylaxis: Pepcid PT/OT: Pending Prognosis is guarded
[2019-11-04] MEDS ORDERED: MECLIZINE 25 MG TAB PO PRN (16:42)
[2019-11-04] MEDS ORDERED: LORazepam 0.5 MG TAB PO PRN (16:42)
[2019-11-04] MEDS ORDERED: SODIUM BICARBONATE PO SCH (16:45)
[2019-11-04] MEDS ORDERED: OMEPRAZOLE PO SCH (16:45)
[2019-11-04] MEDS: ATENOLOL 25 MG TAB PO SCH (16:57)
[2019-11-04] MEDS: LORATADINE 10 MG TAB PO SCH (16:57)
[2019-11-04] MEDS: PANTOPRAZOLE 40 MG TABLET PO SCH (16:58)
--- NOTE | 2019-11-04 20:39 | P.CNNES ---
History of Present Illness Consult date: 11/04/19 Requesting physician: Endy E Sheet Reason for Consult: Lightheadedness and numbness in the right leg History of Present Illness: Patient is a 39-year-old male, who states that he started having chest pain on 10/01/2019. He was admitted to [facility] where he underwent cardiac workup, everything came back normal and he was sent home. He saw his primary physician, who diagnosed him with pneumonia, which became worse. He was hospitalized again at [facility] for 6 days from 10/11/2019, to 10/18/2019. He also underwent bronchoscopy, which revealed some pneumonia. Patient was discharged on 10/18/2019. Even at the time of discharge, he was noticing some dizziness, but it got worse over the weekend on 10/19/2019 and 10/20/2019. He was then evaluated at the [facility], underwent CTA of head and neck which came back normal, and was transferred to [facility] where he was hospitalized for 3 days. He was seen by ENT and a neurologist, and was diagnosed with BPPV versus possible inner ear infection. He was discharged home. Patient states that his intense roller coaster feeling/vertigo lasted for almost 7 days, but now he does not get vertigo, however still gets dizziness on changing his head or body position. Since 10/11/2019, he is also noticing intermittent paresthesias involving different parts of the body. It is cold sensation, which can occur throughout the body different times, different places. It can last for about an hour to many hours. It feels like frostbite, and points to his sternal region, or one or the other of the extremities. He does not have any constant areas of numbness of any part of the body. Denies any focal weakness. Denies any problem with vision, facial droop or slurred speech or problem with the vision. It can involve the right foot, or the left leg. On any other part of the body. Patient's workup so far revealed Chest x-ray showed no active cardiopulmonary disease. Normal heart. EKG showed normal sinus rhythm. Patient had a normal CTA of head and neck on 10/20/2019. Patient's blood test shows normal Chem-7. AST is normal but ALT mildly elevated 53/49. Troponin negative. TSH is elevated 5.52. Free T4 normal 1.47. Influenza screen negative. Review of Systems As above in detail. All other review of systems unremarkable. He has been having difficulty breathing, paresthesias. Vertigo, dizziness, denies hearing loss. He gets motion sickness when stands up. Gets dizzy very easily. Past Medical History Past Medical History: Hypertension, Pneumonia Additional Past Medical History / Comment(s): kidney stones History of Any Multi-Drug Resistant Organisms: None Reported Past Surgical History: Hernia Repair Additional Past Surgical History / Comment(s): bronchoscopy Past Psychological History: No Psychological Hx Reported Smoking Status: Never smoker Past Alcohol Use History: None Reported Past Drug Use History: None Reported Medications and Allergies Home Medications Medication Instructions Recorded Confirmed Type Atenolol 25 mg PO DAILY@1200 11/04/19 11/04/19 History Cetirizine HCl [Zyrtec] 10 mg PO DAILY 11/04/19 11/04/19 History LORazepam [Ativan] 0.5 mg PO BID PRN 11/04/19 11/04/19 History Meclizine [Antivert] 25 mg PO TID PRN 11/04/19 11/04/19 History Omeprazole/Sodium Bicarbonate 1 cap PO DAILY 11/04/19 11/04/19 History [Omeppi 40 mg-1,100 mg Capsule] Allergies Allergy/AdvReac Type Severity Reaction Status Date / Time acetaminophen [From Tylenol] Allergy Rash/Hives Verified 11/04/19 11:18 cephalexin [From Keflex] Allergy Rash/Hives Verified 11/04/19 11:18 Penicillins Allergy Rash/Hives Verified 11/04/19 11:18 Physical Examination - Vital Signs Vital Signs: Vital Signs Temp Pulse Pulse Resp BP BP BP 11/04/19 16:00 98 F 69 18 113/75 11/04/19 12:00 59 L 18 11/04/19 11:30 98.3 F 59 L 18 93/59 11/04/19 08:00 18 11/04/19 07:47 97.5 F L 63 18 108/74 11/04/19 07:11 11/04/19 07:08 54 L 18 98/62 11/04/19 04:00 56 L 20 123/79 11/04/19 03:00 11/04/19 02:00 11/04/19 01:00 11/04/19 00:00 74 20 125/82 11/03/19 23:00 11/03/19 22:00 20 11/03/19 21:58 71 20 123/70 11/03/19 20:07 98.2 F 74 20 116/78 Pulse Ox 11/04/19 16:00 95 11/04/19 12:00 11/04/19 11:30 98 11/04/19 08:00 11/04/19 07:47 96 11/04/19 07:11 99 11/04/19 07:08 99 11/04/19 04:00 95 11/04/19 03:00 94 L 11/04/19 02:00 94 L 11/04/19 01:00 93 L 11/04/19 00:00 95 11/03/19 23:00 96 11/03/19 22:00 96 11/03/19 21:58 95 11/03/19 20:07 98 Intake and Output 11/04/19 11/04/19 11/04/19 06:59 14:59 22:59 Intake Total 480 Balance 480 Intake: Oral 480 Other: # Voids 2 Weight 124.738 kg On examination patient is a middle aged male, in no distress. He is alert and awake, oriented to time place and person. Speech and language functions are normal. Attention and concentration fund of knowledge is adequate. On cranial nerve examination pupils are round and reactive to light, visual lopez are full, extraocular muscles are intact. Face is symmetric and tongue protrudes the midline. Palatal elevation sensation normal. Hearing and shoulder shrug normal. Otologic examination revealed normal-appearing eardrums bilaterally. On muscle strength testing there is no pronator drift and the strength is normal in arms and legs distally and proximally. Reflexes are 1+ in the upper limbs, 2 at the knees, 2 at the ankles bilaterally and plantars d owngoing versus withdrawal bilaterally. Sensory to touch is equal. No ataxia for [id number] testing. Tone and bulk of muscles normal. Gait deferred. There is no carotid bruit, S1 and S2 audible. Peripheral pulses present Results - Laboratory Findings CBC and BMP: 11/03/19 21:00 11/03/19 21:00 Abnormal Lab Findings: Abnormal Labs 03/08/20 03/08/20 21:00 21:00 RBC 6.04 H Glucose 120 H ALT 53 H Total Protein 8.5 H Albumin 5.3 H Assessment and Plan Assessment: * 39-year-old male with recent history of pneumonia, has been having dizziness/vertigo, likely related to peripheral vestibular dysfunction, versus BPPV. * Paresthesias (ice cold sensations) involving different parts of the body, unclear etiology. Patient does not have any constant area of numbness of any part of the body. His reflexes are normal with no evidence of polyneuropathy. Rule out B12 deficiency. * Hypothyroidism, which could be contributing. Plan: * Regarding paresthesias, we will check B12, folate, MMA level. * Patient's TSH was mildly elevated recently. May need to follow-up TFTs and hormonal replacement. * I will check 2-D echo with bubble study to rule out any PFO or other embolic source.
[2019-11-04] MEDS ORDERED: ALBUTEROL NEBULIZED 2.5 MG/3 ML INHALATION PRN (22:17)
--- NOTE | 2019-11-04 23:48 | CT ---
EXAMINATION TYPE: CT chest wo con DATE OF EXAM: 11/04/2019 COMPARISON: None chest x-ray yesterday HISTORY: pneumonia Chest pain CT DLP: 804.3 mGycm Automated exposure control for dose reduction was used. Multiple axial sections were obtained from the thoracic inlet to the diaphragm without contrast. The mediastinum appears normal. There is no adenopathy. Thoracic aorta is intact. There is no sign of aneurysm. There are no hilar masses. Heart size is normal. There is no pericardial effusion. There i s no pleural effusion. Upper abdominal soft tissues are intact. There is some fatty infiltration of t he liver. Stomach is large. The lungs are clear of consolidation. There is no evidence of a pulmonary mass. There is no pleural e ffusion. There is no pericardial effusion. There is very minimal pleural thickening in the posterior lung lopez. There is minimal thickening of the right minor fissure. Thoracic spine is intact. There is no compression fracture. The ribs appear intact. IMPRESSION: Normal heart. No pulmonary mass or consolidation. Minimal pleural thickening noted as above. Fatty in filtration of the liver.
--- NOTE | 2019-11-05 06:53 | P.PN ---
Subjective This is a pleasant 39 years old male with past medical history of hypertension, pneumonia, kidney stone, status post bronchoscopy. COPD, pulmonary nodule, recent right upper lobe pneumonia, bronchitis, possible obstructive sleep apnea, obesity. He is a patient of Dr. Woody. he was recently discharge from [facility] for pneumonia and copd . Patient sitting since September every day he has symptoms of hot flashes, numbness and tingling or just feeling cold and his right leg associated with some light headedness and episodic dy spnea, as per patient he states is been evaluated by supervisor inspection department and urologist before for his numbness as well as by cut off machine unloader for his heart including last month with negative stress test and they found everything fine for him, also patient was complaining of from right hip headedness but states his multiple been checked before. Patient has been evaluated before by cut off machine unloader on 10/02/2039 current chest pain which patient describes is the same chest pain, at that time cut off machine unloader for this is atypical chest pain with normal cardiac enzymes no ischemic changes on the EKG and underwent echocardiogram, revealed no stress-induced ischemia and cartilage cleared him for discharge for follow up with Dr. Villarreal in 2-3 weeks, during this admission as his troponins were negative at less than 0.0122, no ekg done , we are going to order another EKG Also patient has been asking to be evaluated by physical therapy in case he needs rehab, stating he has home healthcare at home Patient currently is breathing quietly, chest examination shows good air entry with no wheezing or crepitation, he is saturating 98% on room air 11/05/2019 Patient is still complaining of from chest pressure and lightheadedness as of last night, also I still have some degree of numbness although he states it is a little better. With adequate stable. We'll check electrolytes and creatinine today, troponin, third function tests. B12 and folate are pending. He had CT of chest without contrast showing no pulmonary mass or consolidation with minimal pleural thickening and fatty liver. Patient does not need morphine and he does not want it so will be discontinued. Review of systems CONSTITUTIONAL: No fever, no malaise, no fatigue. HEENT: No recent visual problems or hearing problems. Denied any sore throat. CARDIOVASCULAR: No orthopnea, PND, no palpitations, no syncope. PULMONARY: No shortness of breath, no cough, no hemoptysis. GASTROINTESTINAL: No diarrhea, no nausea, no vomiting, no abdominal pain. Normoactive bowel sounds. NEUROLOGICAL: No headaches, no weakness, no numbness. HEMATOLOGICAL: Denies any bleeding or petechiae. GENITOURINARY: Denies any burning micturition, frequency, or urgency. MUSCULOSKELETAL/RHEUMATOLOGICAL: Denies any joint pain, swelling, or any muscle pain. ENDOCRINE: Denies any polyuria or polydipsia. Active Medications Generic Name Dose Route Start Last Admin Trade Name Freq PRN Reason Stop Dose Admin Albuterol Sulfate 2.5 mg 11/04/19 22:17 Ventolin Nebulized INHALATION RT-QID PRN Shortness Of Breath Or Wheezing Atenolol 25 mg 11/04/19 16:43 11/04/19 16:57 Tenormin PO Not Given DAILY@1200 ELIAS Budesonide 0.5 mg 11/05/19 08:00 Pulmicort INHALATION RT-BID [facility] Sodium Chloride 1,000 mls @ 20 mls/hr 11/04/19 00:15 11/04/19 22:12 Saline 0.9% IV Not Given .Q24H ELIAS Loratadine 10 mg 11/04/19 16:45 11/04/19 16:57 Claritin PO Not Given DAILY ELIAS Lorazepam 0.5 mg 11/04/19 16:42 11/05/19 01:38 Ativan PO 0.5 mg BID PRN Administration Anxiety Meclizine HCl 25 mg 11/04/19 16:42 Antivert PO TID PRN Vertigo Morphine Sulfate 4 mg 11/04/19 00:05 Morphine Sulfate (Inj) IV Q4HR PRN Severe Pain Naloxone HCl 0.2 mg 11/04/19 00:05 Narcan IV Q2M PRN Opioid Reversal Pantoprazole Sodium 40 mg 11/04/19 17:00 11/04/19 16:58 Protonix PO 40 mg [id number] ELIAS Administration Objective - Vital Signs Vital signs: Vital Signs Temp 97.7 F 11/04/19 23:36 Pulse 81 11/04/19 23:36 Resp 18 11/04/19 23:36 BP 111/61 11/04/19 23:36 Pulse Ox 93 L 11/04/19 23:36 Intake & Output 11/04/19 11/04/19 11/05/19 06:59 18:59 06:59 Intake Total 480 400 Balance 480 400 Weight 124.738 kg Intake: Oral 480 400 Other: # Voids 2 1 - Exam GENERAL: The patient is alert and oriented x3, not in any acute distress. Well developed, well nourished. HEENT: Pupils are round and equally reacting to light. EOMI. No scleral icterus. No conjunctival pallor. Normocephalic, atraumatic. No pharyngeal erythema. No thyromegaly. CARDIOVASCULAR: S1 and S2 present. No murmurs, rubs, or gallops. PULMONARY: Chest is clear to auscultation, no wheezing or crackles. ABDOMEN: Soft, nontender, nondistended, normoactive bowel sounds. No palpable organomegaly. MUSCULOSKELETAL: No joint swelling or deformity. EXTREMITIES: No cyanosis, clubbing, or pedal edema. NEUROLOGICAL: Gross neurological examination did not reveal any focal deficits. SKIN: No rashes. no petechiae. - Labs CBC & Chem 7: 11/03/19 21:00 11/03/19 21:00 Labs: Microbiology - Last 24 Hours (Table) 11/03/19 21:20 Blood Culture - Preliminary Blood No Growth after 24 hours Assessment and Plan Assessment: Recurrent chest pressure with negative troponin, he has been evaluated by cut off machine unloader recently with no stress-induced ischemia found an echocardiogram Episodic dyspnea Lightheadedness . mostly Dizziness/vertigo secondary to peripheral vestibular dysfunction versus BPPV numbness in his right leg Recent history of pneumonia Hypertension Pulmonary nodule Possible history of sleep apnea Obesity History of kidney stone and cyst Plan: This is a pleasant 39 years old male who presents with nonspecific symptoms of some dyspnea and lightheadedness, chest pressure and numbness in his right leg B12 and folate are pending, we will recheck thyroid function test neurologist recommended 2-D echo with bubble study to rule out PFO Appreciated consultants evaluated the patient including pulmonary and neurology, cardiology also will be consulted. Labs and medication were reviewed.. Continue same treatment. Continue with symptomatic treatment. Resume home medication. Monitor lytes and vitals. DVT and GI prophylaxis. Further recommendations of the clinical course of the patient DVT prophylaxis: Subcutaneous heparin GI Prophylaxis: Pepcid PT/OT: Pending Prognosis is guarded
--- NOTE | 2019-11-05 07:22 | CONS ---
CONSULTATION Siddhartha Ricci is a 39-year-old male who presented to the ED at [facility] with some right-sided chest tightness as well as shortness of breath. He apparently has been sick for approximately 2 months. He underwent a bronchoscopy at [facility], which apparently was negative for any specific pathology. He was thought to at that time have a right upper lobe pneumonia. He is homosexual and apparently had an HIV test recently that was negative as well. I did try to see if in his cytology if Pneumocystis stain had been done, but it did not seem so, but I will reconfirm that. He is lying in bed and does not seem to be in any distress at this time. He denies any recent fever, chills or rigors, but has a feeling of fullness and is unable to take a deep breath. PAST MEDICAL HISTORY: Positive for hypertension, pneumonia, history of kidney stones, history of recent bronchoscopy, hernia repair, history of obstructive sleep apnea for which he apparently uses CPAP but I am not sure whether this is effective or not effective. SOCIAL HISTORY: Patient is a never smoker. Does not drink alcohol excessively. There may be some mold in the house. FAMILY HISTORY: Noncontributory. MEDICATIONS: Prior to admission were omeprazole, Antivert, Ativan, atenolol, and Zyrtec. REVIEW OF SYSTEMS: Positive for obesity. PHYSICAL EXAMINATION: Patient is lying in bed. Respiratory rate is 18, pulse 86, temperature 98.2, blood pressure 116/73, O2 saturation on room air is 95%. HEENT: Reveals pupils that are equal. There is redundant tissue in the posterior pharynx. CHEST: Reveals decreased breath sounds at the right base. No clear wheeze. There is mild prolonged exhalation. CARDIOVASCULAR SYSTEM: Reveals an S1, S2. ABDOMEN: Soft. There is trace to 1+ pedal edema. LABS: Reveal a white count of 8.3, hemoglobin of 17.5 with a hematocrit of 51.4. Sodium 139, potassium 4, chloride 102, bicarb 25, plasma lactic acid is 2. Chest x-ray shows elevation of the right hemidiaphragm. IMPRESSION: 1. Dyspnea, which is multifactorial. This may in part be due to elevated right hemidiaphragm, which may reflect either volume loss or possible paresis of the right hemidiaphragm. Shortness of breath may also be related to the patient's polycythemia as his hematocrit is above 50. He may also have cor pulmonale from his obstructive sleep apnea, which may be causing hypoxemia and resulting in polycythemia as well and so we would need to check his download on his CPAP machine to ensure that there are adequate settings. 2. Recent atypical pneumonia, status post bronchoscopy for which we shall check an MARCELLE, rheumatoid factor, hypersensitivity pneumonitis panel and see if he did get Pneumocystis stain on his previous bronchoscopy. At this point in time, would keep him on GI and DVT prophylaxis. Await sniff test. CT scan of the chest as well as blood work. Would continue him on his current medications which were reviewed including meclizine, Ativan, Claritin, and Tenormin. Would add bronchodilators, aerosolized steroids to his regimen. Depending on how he does, we shall make further changes to his care. I would like to thank you for allowing me the privilege to participate in his care. MMODL / IJN: [id number] /
[2019-11-05] MEDS: BUDESONIDE 0.5 MG/2 ML NEBU INHALATION SCH ×2 (07:24→20:02)
--- NOTE | 2019-11-05 08:22 | FL ---
EXAMINATION TYPE: FL sniff test without CXR DATE OF EXAM: 11/05/2019 COMPARISON: Chest CT from yesterday and few older x-rays. HISTORY: Elevated right hemidiaphragm, possible paralysis. TECHNIQUE: Fluoroscopic assistance attest. A total of 28 seconds was utilized during procedure. 27 sp ot images were saved. FINDINGS: There is slightly elevated right hemidiaphragm on deep inspiration. Dynamic imaging shows s uboptimal deep inspiration and expiration but symmetric satisfactory motion of the right and left hem idiaphragms. No paradoxical movements identified during this test or coughing. IMPRESSION: Suboptimal deep inspiration but no fluoroscopic evidence for hemidiaphragm paralysis.
[2019-11-05 08:31] LABS: African American GFR (CKD) >90 (>60 ml/min/1.73 sqM); Anion Gap 12 mmol/L; Blood Urea Nitrogen 13 mg/dL (9-20); Calcium 9.4 mg/dL (8.4-10.2); Carbon Dioxide 24 mmol/L (22-30); Chloride 103 mmol/L (98-107); Glucose 96 mg/dL (74-99); Non-African American GFR(CKD) >90 (>60 ml/min/1.73 sqM); Potassium 4.3 mmol/L (3.5-5.1); Sodium 139 mmol/L (137-145)
[2019-11-05] MEDS: LORATADINE 10 MG TAB PO SCH (09:05)
[2019-11-05] MEDS: PANTOPRAZOLE 40 MG TABLET PO SCH (09:06)
[2019-11-05] MEDS: ATENOLOL 25 MG TAB PO SCH ×2 (09:06→09:10)
--- NOTE | 2019-11-05 09:08 | CONS ---
CONSULTATION CHIEF COMPLAINT: Chest pain This is a 39-year-old gentleman with history of hypertension who works at the [employer] [facility] at [employer], who presented to hospital primarily complaining of weakness, fatigue, tiredness and musculoskeletal pain and body spasms. He was admitted to hospital on Monday and we have been consulted late yesterday evening for evaluation of chest pain. His chest discomfort is sharp, atypical, musculoskeletal and reproducible. There is no history of exertional angina, exertional shortness of breath. There is no history of coronary artery disease or congestive heart failure. The patient has had similar symptoms and was admitted to [facility] where he had a stress test and echocardiogram and apparently that workup is negative. I am going to get hold of these and review. Since being admitted, he is doing well. His predominant problem is that he has musculoskeletal weakness. I am going to let the primary work it up and address it further. EKG looks normal. Cardiac enzymes have been negative. PAST MEDICAL HISTORY: Significant for hypertension. MEDICATIONS: Atenolol. ALLERGIES: As charted. FAMILY HISTORY: Negative for premature coronary artery disease. SOCIAL HISTORY: Negative for smoking, EtOH abuse or drug abuse. REVIEW OF SYSTEMS: HEENT is unremarkable. CARDIAC: As described above. RESPIRATORY: As described above. GI: Negative. GENITOURINARY: Negative. ALLERGY/IMMUNOLOGY: Negative. SKIN: Negative. MUSCULOSKELETAL: As described above. PSYCHOSOCIAL: Negative. ENDOCRINE: Negative. DERM: Negative. CONSTITUTIONAL: Negative. ONCOLOGICAL: Negative. PHYSICAL EXAMINATION: On exam, patient is comfortable at rest. Vital signs are stable. There is no jugular venous distention. Carotid upstroke is normal. There is no bruit. Chest exam reveals good air entry bilaterally. Heart exam reveals first and second heart sounds. No gallop. No murmur. No rub. Abdomen is soft, nontender. Exam of extremities did not reveal edema. Peripheral pulses are felt. ASSESSMENT: 1. Atypical chest pain. 2. Hypertension. PLAN: I am going to review the stress test and echo from [facility]. He does not require any further cardiac workup. If the stress test and echo were unremarkable, he is safe to be discharged home from my standpoint. Thank you for giving me the privilege to participate in the care of this pleasant gentleman. MMODL / IJN: [id number] /
[2019-11-05 11:07] LABS: Folate, Serum 12.4 ng/mL; Rheumatoid Factor, Qnt <4 IU/mL (0-15)
--- NOTE | 2019-11-05 13:54 | P.PN ---
Subjective Progress Note Date: 11/05/19 Patient continues to have cold paresthesias involving different parts of the body, headache, dizziness. Headache is in the frontal region. Objective - Vital Signs Vital signs: Vital Signs Temp 97.4 F L 11/05/19 08:30 Pulse 87 11/05/19 08:30 Resp 18 11/05/19 08:30 BP 121/80 11/05/19 08:30 Pulse Ox 93 L 11/05/19 08:30 Intake & Output 11/04/19 11/05/19 11/05/19 18:59 06:59 18:59 Intake Total 480 400 Balance 480 400 Intake: Oral 480 400 Other: # Voids 2 1 - Exam Patient's mental status, speech and leg which functions are normal. Appears somewhat anxious. Muscle strength is normal. No ataxia. - Labs CBC & Chem 7: 11/03/19 21:00 11/05/19 07:01 Labs: Microbiology - Last 24 Hours (Table) 11/03/19 21:20 Blood Culture - Preliminary Blood No Growth after 24 hours Assessment and Plan Assessment: * 39-year-old male with recent history of pneumonia, has been having dizziness/vertigo, likely related to peripheral vestibular dysfunction, versus BPPV. * Paresthesias (ice cold sensations) involving different parts of the body, unclear etiology. Patient does not have any constant area of numbness of any part of the body. His reflexes are normal with no evidence of polyneuropathy. * Hypothyroidism, which could be contributing. Plan: * Regarding paresthesias, patient had normal B12 584, folate 12.4, repeat TSH and free T4 normal. Liver panel with mildly elevated ALT. IgE normal, rheumatoid factor negative, influenza screen negative. ESR normal 5. * 2-D echo has been canceled, as patient has recently undergone 2-D echo at [facility]. * Patient will be started on aspirin 81 mg daily empirically. * No other neurological workup indicated. May follow up with neurologist as an outpatient for EMG testing of upper and lower extremities.
--- NOTE | 2019-11-05 14:12 | P.PN ---
Progress Note - Text Stress test and echocardiogram from [facility] unremarkable. Stable for discharge from a cardiac perspective.
[2019-11-05] MEDS ORDERED: LORazepam 0.5 MG TAB PO PRN (15:49)
[2019-11-05] MEDS: FAMOTIDINE 20 MG/2 ML VIAL IV SCH (20:49)
[2019-11-05] MEDS: IBUPROFEN 400 MG TAB PO PRN (20:49)
[2019-11-05] MEDS: HEPARIN SODIUM,PORCINE 5,000 UNIT/ML 1 ML VIAL SQ SCH (20:49)
[2019-11-05] MEDS: SODIUM CHLORIDE 0.9% 1,000 ML IV SCH (21:37)
--- NOTE | 2019-11-05 22:13 | PN ---
PROGRESS NOTE DATE OF SERVICE: 11/05/2019 This patient continues to have some chest pressure. He does not have much cough or wheezing. On physical examination, blood pressure is 113/75, respiratory rate of 18, pulse rate of 87, temperature 97.8. Oxygen saturation on room air is 93%. HEENT is unremarkable. Chest is clear. Cardiovascular system reveals an S1, S2. Abdomen is soft. There is no trace pedal. Sodium is 139, potassium 4.3, chloride 103, bicarb 24, BUN 13, creatinine 0.95. Hemoglobin is 17.5. IgE is 104. Rheumatoid factor and MARCELLE are negative. Allergy panel is pending. IMPRESSION AT THIS TIME: 1. Chest tightness, which may be related to asthma versus musculoskeletal etiology. 2. Obstructive sleep apnea. 3. Polycythemia, which may be due to chronic hypoxemia from obstructive sleep apnea. 4. Recent bronchoscopy, for which we did track down his results but did not see Pneumocystis results. We have requested the lab to process a cytology specimen for Pneumocystis as well. Depending on how he does, we shall make further changes to his care. MMODL / IJN: [id number] /
[2019-11-06] MEDS: BUDESONIDE 0.5 MG/2 ML NEBU INHALATION SCH ×2 (07:23→19:13)
[2019-11-06] MEDS: HEPARIN SODIUM,PORCINE 5,000 UNIT/ML 1 ML VIAL SQ SCH ×2 (08:03→21:07)
[2019-11-06] MEDS: FAMOTIDINE 20 MG/2 ML VIAL IV SCH ×2 (08:03→21:06)
[2019-11-06] MEDS: PANTOPRAZOLE 40 MG TABLET PO SCH (08:03)
[2019-11-06] MEDS: ASPIRIN 81 MG PO SCH (08:04)
[2019-11-06] MEDS: LORATADINE 10 MG TAB PO SCH (08:04)
[2019-11-06] MEDS: ATENOLOL 25 MG TAB PO SCH (08:04)
--- NOTE | 2019-11-06 17:19 | PN ---
PROGRESS NOTE DATE OF SERVICE: 11/06/2019 This patient has been hemodynamically stable. He continues to have chest pain and chest tightness. His Pneumocystis carinii stain at [facility] was negative. Today on physical examination his blood pressure is 93/73, respiratory rate of 18, pulse rate of 92, temperature 97.8. Oxygen saturation on room air is 93%. HEENT is unremarkable. Chest is clear. Cardiovascular system reveals an S1, S2. Abdomen is soft. There is no pedal edema. IMPRESSION AT THIS TIME: 1. Chest pain, etiology of which is unclear. This may be due to an atypical presentation of asthma versus musculoskeletal etiology. 2. Polycythemia which may be due to chronic hypoxia from obstructive sleep apnea. 3. Obstructive sleep apnea. 4. Recent bronchoscopy. At this point in time, would continue him on albuterol p.r.n., Pulmicort twice a day, GI and DVT prophylaxis. Increase his activity level. He would require a full PFT as well as nitric oxide exhaled breath measurements as an outpatient. He and his mother were counseled regarding his condition and this approach. MMODL / IJN: [id number] /
--- NOTE | 2019-11-06 23:18 | XR ---
EXAMINATION TYPE: XR abdomen 2V DATE OF EXAM: 11/06/2019 COMPARISON: NONE HISTORY: Abdominal pain TECHNIQUE: Supine and upright views FINDINGS: There is no sign of intestinal obstruction or pneumoperitoneum. Fecal pattern is normal. Kate ng bases are clear. There is phlebolith in the pelvis on the left side. There is no evidence of a mas s. IMPRESSION: Nonacute abdomen.
[2019-11-07] MEDS: SODIUM CHLORIDE 0.9% 1,000 ML IV SCH (04:02)
--- NOTE | 2019-11-07 05:25 | P.PN ---
Subjective This is a pleasant 39 years old male with past medical history of hypertension, pneumonia, kidney stone, status post bronchoscopy. COPD, pulmonary nodule, recent right upper lobe pneumonia, bronchitis, possible obstructive sleep apnea, obesity. He is a patient of Dr. Woody. he was recently discharge [facility] for [facility] and copd . Patient states in since September every day he has symptoms of hot flashes, numbness and tingling or just feeling cold and his right leg and other parts of the body associated with some light headedness and episodic dyspnea Patient has been evaluated before by hot box operator on 10/02/2039 with chest pain similar described chest pain, at that time hot box operator for this is atypical chest pain with normal cardiac enzymes no ischemic changes on the EKG and underwent echocardiogram, revealed no stress-induced ischemia and hot box operator cleared him for discharge for follow up with Dr. Villarreal in 2-3 weeks, during this admission as his troponins were negative at less than 0.0122, EKG showed no ischemic changes, his been evaluated by hot box operator again during this admission and Cleared him for discharge Also neurologist evaluated the patient and underwent some workup, patient had n ormal B12 584, folate 12.4, repeat TSH and free T4 normal. Liver panel with mildly elevated ALT. IgE normal, rheumatoid factor negative, influenza screen negative. ESR normal 5. Patient was started on aspirin 81 mg daily empirically with a recommendation for outpatient follow-up for possible EMG testing of upper and lower extremity, patient informed with this recommendation and he agrees to follow up with Dr. Ibanez the neurologist Also patient has been evaluated by Dr. Camacho the textile finisher, his symptoms and chest tightness may be related to asthma versus musculoskeletal etiology, also with obstructive sleep apnea, and review the results of recent bronchoscopy Bronchodilator and aerosolized steroids has been added.He had CT of chest without contrast showing no pulmonary mass or consolidation with minimal pleural thickening and fatty liver. Also patient has requested to go to rehab so physical therapy evaluated the patient, pt is pending prior authorization Patient already told me he has home healthcare at home Patient is counseled to stop taking home dose Ativan and he agrees. Objective - Vital Signs Vital signs: Vital Signs Temp 98 F 11/06/19 20:00 Pulse 107 H 11/06/19 20:00 Resp 18 11/06/19 07:00 BP 129/82 11/06/19 20:00 Pulse Ox 92 L 11/06/19 20:00 Intake & Output 11/06/19 11/06/19 11/07/19 06:59 18:59 06:59 Intake Total 400 480 Balance 400 480 Intake: Oral 480 Blood Product 400 Other: # Voids 1 1 - Exam GENERAL: The patient is alert and oriented x3, not in any acute distress. Well developed, well nourished. HEENT: Pupils are round and equally reacting to light. EOMI. No scleral icterus. No conjunctival pallor. Normocephalic, atraumatic. No pharyngeal erythema. No thyromegaly. CARDIOVASCULAR: S1 and S2 present. No murmurs, rubs, or gallops. PULMONARY: Chest is clear to auscultation, no wheezing or crackles. ABDOMEN: Soft, nontender, nondistended, normoactive bowel sounds. No palpable organomegaly. MUSCULOSKELETAL: No joint swelling or deformity. EXTREMITIES: No cyanosis, clubbing, or pedal edema. NEUROLOGICAL: Gross neurological examination did not reveal any focal deficits. SKIN: No rashes. no petechiae. - Labs CBC & Chem 7: 11/03/19 21:00 11/05/19 07:01 Labs: Microbiology - Last 24 Hours (Table) 11/03/19 21:20 Blood Culture - Preliminary Blood No Growth after 48 hours Assessment and Plan Assessment: Recurrent chest pressure with negative troponin, he has been evaluated by hot box operator recently with no stress-induced ischemia found an echocardiogram Episodic dyspnea Lightheadedness . mostly Dizziness/vertigo secondary to peripheral vestibular dysfunction versus BPPV numbness in his right leg Recent history of pneumonia Hypertension Pulmonary nodule Possible history of sleep apnea Obesity History of kidney stone and cyst Plan: This is a pleasant 39 years old male who presents with nonspecific symptoms of some dyspnea and lightheadedness, chest pressure and numbness in his right leg work up is still in progress Appreciated consultants evaluated the patient including pulmonary and neurology, cardiology . pt is also pending prior authorization for rehab recommended by Physical therapy Labs and medication were reviewed.. Continue same treatment. Continue with symptomatic treatment. Resume home medication. Monitor lytes and vitals. DVT and GI prophylaxis. Further recommendations of the clinical course of the patient DVT prophylaxis: Subcutaneous heparin GI Prophylaxis: Pepcid
[2019-11-07] MEDS: PANTOPRAZOLE 40 MG TABLET PO SCH (09:04)
[2019-11-07] MEDS: FAMOTIDINE 20 MG/2 ML VIAL IV SCH (09:04)
[2019-11-07] MEDS: HEPARIN SODIUM,PORCINE 5,000 UNIT/ML 1 ML VIAL SQ SCH ×2 (09:04→20:33)
[2019-11-07] MEDS: LORATADINE 10 MG TAB PO SCH (09:04)
[2019-11-07] MEDS: ASPIRIN 81 MG PO SCH (09:05)
[2019-11-07] MEDS: BUDESONIDE 0.5 MG/2 ML NEBU INHALATION SCH ×2 (09:50→19:54)
[2019-11-07 15:21] LABS: Alt. alternata IgE Class CLASS 0; Alternaria alternata IgE <0.10 kU/L (<0.10); Asperg. fumagatus IgE <0.10 kU/L (<0.10); Asperg. fumagatus IgE Class CLASS 0; Bermuda Grass IgE 2.77 kU/L (<0.10); Birch(Com.Silvr) IgE <0.10 kU/L (<0.10); Birch(Com.Silvr) IgE Class CLASS 0; Cat Epith & Dander IgE <0.10 kU/L (<0.10); Cat Epith & Dander IgE Class CLASS 0; Clad herbarum IgE <0.10 kU/L (<0.10); Clad herbarum IgE Class CLASS 0; Cockroach IgE 0.77 kU/L (<0.10); Cottonwood IgE <0.10 kU/L (<0.10); Dermato. Pteronyssinus Class CLASS 1; Dermato. Pteronyssinus IgE 0.36 kU/L (<0.10); Dermato. farinae IgE 0.31 kU/L (<0.10); Dermato. farinae IgE Class CLASS 0/1; Elm IgE <0.10 kU/L (<0.10); IgE (Allergen) 95.9 IU/mL (<114.0); Maple (Box Elder) IgE <0.10 kU/L (<0.10); Maple (Box Elder) IgE Class CLASS 0; Mountain Cedar IgE <0.10 kU/L (<0.10); Mountain Cedar IgE Class CLASS 0; Mouse Urine IgE Class CLASS 0; Mouse Urine Proteins,IgE <0.10 kU/L (0.10); Nettle IgE <0.10 kU/L (<0.10); Nettle IgE Class CLASS 0; Oak IgE <0.10 kU/L (<0.10); Penicillium chrysogenum IgE <0.10 kU/L (<0.10); Penicillium chrysogenum IgE Cl CLASS 0; Rough Marshelder IgE 1.48 kU/L (<0.10); Rough Marshelder IgE Class CLASS 2; Timothy Grass IgE Class CLASS 4; White Ash IgE Class CLASS 0
[2019-11-07] MEDS ORDERED: ALPRAZolam 0.25 MG TAB PO PRN (20:25)
[2019-11-07] MEDS ORDERED: TEMAZEPAM 15 MG CAP PO PRN (20:25)
[2019-11-07] MEDS: MECLIZINE 12.5 MG TAB PO SCH (20:35)
[2019-11-07] MEDS: PANTOPRAZOLE 40 MG/10 ML VIAL IVP SCH (20:40)
--- NOTE | 2019-11-08 03:32 | PN ---
PROGRESS NOTE DATE OF SERVICE: 11/07/2019 This 39-year-old gentleman who was admitted with multiple medical problems had symptoms since at least for the last 1 month. The patient had multiple episodes pneumonia, weakness, multiple hospital admissions for evaluation. The patient also had evaluation at [facility] where performed a bronchoscopy, also. The patient also had a cardiac workup including troponins and stress which were also negative because of recurrent chest pain. Currently the patient is complaining of extreme weakness, tiredness, numbness, paresthesias and the patient has weakness at this time. PAST MEDICAL HISTORY: Reviewed. CURRENT MEDICATIONS: 1. Ventolin 2.5 q.i.d. p.r.n. 2. Aspirin 81 mg p.o. 3. Pulmicort 0.5 b.i.d. 4. Heparin subcu b.i.d. 5. Motrin 400 mg q.6h p.r.n. 6. Claritin 10 mg daily. 7. Ativan 0.25 mg b.i.d. 8. Antivert 25 mg t.i.d. p.r.n. 9. Narcan p.r.n. 10.Protonix 40 mg daily. REVIEW OF SYSTEMS: ENT: No diminished hearing. No diminished vision. Otherwise, as mentioned earlier. CARDIOVASCULAR: No angina. Otherwise, as mentioned earlier. GI: As mentioned earlier. NERVOUS SYSTEM: As mentioned earlier. PHYSICAL EXAMINATION: The patient is alert and oriented x3. Pulse 122, blood pressure 150/83, respiration 20, temperature 98 degrees, pulse ox 96% on room air. HEENT: Conjunctivae normal. Oral mucosa moist. NECK: No jugular venous distention. No lymph node enlargement. CARDIOVASCULAR: S1, S2. RESPIRATORY: Diminished breath sounds at the bases. A few scattered rhonchi, no crackles. ABDOMEN: Soft, obese, nontender. LEGS: No edema, no swelling. NERVOUS SYSTEM: Higher functions as mentioned earlier. Otherwise, moves all limbs. Diffuse weakness present, especially proximal muscle weakness. No sensory abnormalities. LYMPHATICS: No lymph node in neck or axillae. SKIN: No rash. JOINTS: No active deformity. LABS: WBC 8.2, hemoglobin 17.5, sodium 130, potassium 4, glucose 120, ALT is 53, albumin is 5.3 and total protein is 8.5. Troponins are negative. Allergens are noted. Influenza is negative. IgE is 104 within normal limits. MARCELLE is negative. ASSESSMENT: 1. Generalized tiredness and weakness, possibly rule out postviral Guillain- [place] syndrome. 2. Possible viral syndrome with history of pneumonia. 3. History of reactive bronchospasm and asthmatic bronchitis. 4. Hypertension. 5. History of nephrolithiasis. 6. History of bronchoscopy. 7. Obesity with body mass of 37.3. 8. Increased ALT. 9. Increased random blood sugar. RECOMMENDATIONS AND DISCUSSION: In this 39-year-old gentleman who presented with multiple complex medical issues, at this time I recommend to continue current management, continue symptomatic treatment. I recommend CBC and BMP and neurology consultation also. Otherwise, I would also recommend a 2D echo with Doppler. Otherwise PT, OT evaluation. I would recommend possible ECF rehab because of diffuse weakness and gait dysfunction and difficulties with activities of daily living. Please note that the patient's who is with him told me that this is the first time ever the patient was in the hospital for a very long time, and also was sick for quite a bit previously, patient has history of nephrolithiasis. Otherwise, I think the patient has significant difficulties in pain performing the activities of daily living. I strongly recommend a full admit for more than 2 nights and also consider the patient for possible ECF rehab. The patient apparently is not working for the last 1 month because of the recurrent difficulties and multiple hospital admissions. We will continue to monitor. As mentioned earlier, we will closely follow with Neurology. See orders for details. Further recommendations to follow. I would also recommend D-dimer. The patient is to follow with Dr. Woody in the outpatient setting. PAUL / ELIJAH: [id number] / SHABBIR
[2019-11-08] MEDS: SODIUM CHLORIDE 0.9% 1,000 ML IV SCH ×2 (04:22→22:45)
--- NOTE | 2019-11-08 04:32 | PN ---
PROGRESS NOTE DATE OF SERVICE: 11/07/2019 He continues to have chest tightness, some shortness of breath. PHYSICAL EXAMINATION: His respiratory rate is 16, pulse rate is 67, temperature 98, blood pressure 155/83. HEENT is unremarkable. Chest reveals decreased breath sounds. No wheeze. Cardiovascular system reveals an S1, S2. Abdomen is soft. There is no pedal edema. His allergy profile has come back and he is positive for several aeroallergens including dust mites, cockroach, Bermuda grass, Chay grass, common ragweed, Alfaro- Elder and dog dander. IMPRESSION: 1. At this time is chest tightness which may be related to occult asthma. Continue budesonide and albuterol. May be a candidate biologic as an outpatient if he remains symptomatic and he has elevated nitric oxide as well as an abnormal lung function test. 2. Weakness and medical debility, etiology which is unclear which we should defer to the primary team for further workup. The patient was counseled regarding his condition and this approach and his labs were discussed and given to him. He was counseled regarding his condition. MMODL / IJN: [id number] /
[2019-11-08] MEDS: BUDESONIDE 0.5 MG/2 ML NEBU INHALATION SCH ×2 (07:34→20:13)
[2019-11-08] MEDS: LORATADINE 10 MG TAB PO SCH (08:47)
[2019-11-08] MEDS: ASPIRIN 81 MG PO SCH (08:47)
[2019-11-08] MEDS: HEPARIN SODIUM,PORCINE 5,000 UNIT/ML 1 ML VIAL SQ SCH ×2 (08:47→19:38)
[2019-11-08] MEDS: PANTOPRAZOLE 40 MG/10 ML VIAL IVP SCH ×2 (08:48→19:37)
[2019-11-08] MEDS: MECLIZINE 12.5 MG TAB PO SCH ×3 (08:54→22:44)
[2019-11-08 09:43] LABS: Basophils % (A) 0 %; Eosinophils # (A) 0.2 k/uL (0-0.7); Eosinophils % (A) 4 %; HCT 50.1 % (39.0-53.0); Lymphocytes # (A) 1.9 k/uL (1.0-4.8); Lymphocytes % (A) 35 %; MCH 27.9 pg (25.0-35.0); MCV 87.2 fL (80.0-100.0); Mean Platelet Volume 6.5; Monocytes # (A) 0.4 k/uL (0-1.0); Monocytes % (A) 7 %; Neutrophils # (A) 2.6 k/uL (1.3-7.7); Neutrophils % (A) 49 %; Platelet Count 313 k/uL (150-450); RBC 5.74 m/uL (4.30-5.90); RDW 13.4 % (11.5-15.5); WBC 5.2 k/uL (3.8-10.6)
[2019-11-08 09:57] LABS: African American GFR (CKD) >90 (>60 ml/min/1.73 sqM); Anion Gap 9 mmol/L; Blood Urea Nitrogen 15 mg/dL (9-20); Calcium 9.7 mg/dL (8.4-10.2); Carbon Dioxide 26 mmol/L (22-30); Chloride 104 mmol/L (98-107); Glucose 91 mg/dL (74-99); Non-African American GFR(CKD) >90 (>60 ml/min/1.73 sqM); Potassium 4.7 mmol/L (3.5-5.1); Sodium 139 mmol/L (137-145)
--- NOTE | 2019-11-08 10:09 | P.PN ---
Subjective Progress Note Date: 11/07/19 Patient continues to have cold paresthesias involving different parts of the body, headache, dizziness. Headache is in the frontal region. Also complains of muscle aches, breathing difficulty. Objective - Vital Signs Vital signs: Vital Signs Temp 98 F 11/07/19 15:59 Pulse 122 H 11/07/19 15:59 Resp 20 11/07/19 15:59 BP 155/83 11/07/19 15:59 Pulse Ox 96 11/07/19 15:59 Intake & Output 11/07/19 11/07/19 11/08/19 06:59 18:59 06:59 Intake Total 480 Balance 480 Intake: Oral 480 Other: Voiding Method Toilet # Voids 1 1 - Exam Patient's mental status, speech and language functions are normal. Appears somewhat flat affect. Muscle strength is normal. No ataxia. - Labs CBC & Chem 7: 11/08/19 09:06 11/08/19 09:06 Labs: Abnormal Lab Results - Last 24 Hours (Table) 11/05/19 Range/Units 07:01 D. farinae Allrgen IgE 0.31 H (<0.10) kU/L D. pteronyssinus IgE 0.36 H (<0.10) kU/L Bermuda Grass IgE Ab 2.77 H (<0.10) kU/L Chay Grass IgE Ab 22.10 H (<0.10) kU/L Common Ragweed IgE Ab 8.43 H (<0.10) kU/L Alfaro Elder (Rough) 1.48 H (<0.10) kU/L Dog Dander Allerg IgG 0.20 H (<0.10) kU/L Cockroach Allergen IgE 0.77 H (<0.10) kU/L Microbiology - Last 24 Hours (Table) 11/03/19 21:20 Blood Culture - Preliminary Blood No Growth after 72 hours Assessment and Plan Assessment: * 39-year-old male with recent history of pneumonia, has been having dizziness/vertigo, likely related to peripheral vestibular dysfunction, versus BPPV. * Paresthesias (ice cold sensations) involving different parts of the body, unclear etiology. Patient does not have any constant area of numbness of any part of the body. His reflexes are normal with no evidence of polyneuropathy. * Hypothyroidism, which could be contributing. Plan: * Regarding paresthesias, patient had normal B12 584, methylmalonic acid 0.17 normal, folate 12.4, repeat TSH and free T4 normal. Liver panel with mildly elevated ALT. IgE normal 95.9, rheumatoid factor negative, influenza screen negative. MARCELLE negative. ESR normal 5. CRP normal 6.9, CPK normal 30. Detailed ALLERGY testing revealed positivity for multiple objects including, common ragweed, grass, dog dander * 2-D echo has been canceled, as patient has recently undergone 2-D echo at [facility]. * Patient will be started on aspirin 81 mg daily empirically. * No other neurological workup indicated. May follow up with neurologist as an outpatient for EMG testing of upper and lower extremities, if symptoms persist.
--- NOTE | 2019-11-08 16:56 | P.PN ---
Subjective Progress Note Date: 11/08/19 Patient continues to complain about muscle pain, pointing to the legs, mainly from thighs down to the ankles with aching. It does not involve the feet or the toes. Also in the chest and abdomen has aching. Feels like he has ran a marathon. Little activity wipes him out. When he walks, feels imbalance, as if she would fall. The cold/frostbite feeling is now involving only the left leg from knee down. Not the right leg. Overall his old/frostbite feeling has improved. The sensation involves from occipital region to the neck to his body. This was very intense when he was admitted but now seems to be getting better. Denies any problem with bowel or bladder control. He does have frequency of urination, goes for urine every hour but this is his baseline. Objective - Vital Signs Vital signs: Vital Signs Temp 97.7 F 11/08/19 16:00 Pulse 102 H 11/08/19 16:00 Resp 19 11/08/19 16:00 BP 145/90 11/08/19 16:00 Pulse Ox 95 11/08/19 16:00 Intake & Output 11/07/19 11/08/19 11/08/19 18:59 06:59 18:59 Intake Total 240 600 Balance 240 600 Intake: Oral 240 600 Other: Voiding Method Toilet Toilet Toilet # Voids 1 1 1 - Exam Patient's mental status, speech and language functions are normal. Cranial nerves are normal. Pupils are round and reacting to light, visual lopez are full, face is symmetric and tongue protrudes the midline. On muscle strength testing the strength appears completely normal in the arms and legs distally and proximally. His deltoid have some giveaway weakness, but on encouragement, it improves to normal. Likewise his hip flexion, knees and ankles toes are normal. Reflexes are very symmetric, still present, 1-1+ in the upper limbs at biceps, triceps and brachioradialis. In the lower limbs, it is 1+ to 2, very symmetric in bilaterally knees and ankles and plantars downgoing. No ataxia for [id number] testing. Patient walks very unsteady. He walks with a wide base. Appears a fall risk. Uses walker for steadiness. - Labs CBC & Chem 7: 11/08/19 09:06 11/08/19 09:06 Labs: Microbiology - Last 24 Hours (Table) 11/03/19 21:20 Blood Culture - Preliminary Blood No Growth after 96 hours Assessment and Plan Assessment: * 39-year-old male with recent history of pneumonia, has developed persistent weakness, dizziness, paresthesias, gait imbalance and generalized subjective weakness. His muscle strength on formal testing is still normal, and still has preserved reflexes. However his gait is very abnormal with wide base, and fall risk. Jack [place]en[place] syndrome is a possibility, but he still has preserved reflexes. Transverse myelitis also in the differential, but he has no fixed deficits, or sensory loss or significantly abnormal reflexes. * Hypothyroidism, now normal thyroid functions. Plan: * MRI of the brain and cervical spine, with and without contrast to rule out demyelinating disease. If negative, then would recommend lumbar puncture to evaluate for proteins, which may suggest an early stage of Guillain-Monten[place]ro syndrome. * Patient had normal B12 584, methylmalonic acid 0.17 normal, folate 12.4, repeat TSH and free T4 normal. Liver panel with mildly elevated ALT. IgE normal 95.9, rheumatoid factor negative, influenza screen negative. MARCELLE negative. ESR normal 5. CRP normal 6.9, CPK normal 30. Detailed ALLERGY testing revealed positivity for multiple objects including, common ragweed, grass, dog dander * Patient will be started on aspirin 81 mg daily empirically. * Neurology coverage not available on the weekend.
--- NOTE | 2019-11-08 19:34 | P.PN ---
Subjective Progress Note Date: 11/08/19 Principal diagnosis: ALLERGY asthma, chest tightness, generalized weakness and inability, ongoing dizziness with gait imbalance paresthesia 11/08/2019, patient seen eval reexamined during the rounds labs reviewed medications reviewed patient is for MRSA and MRI of the brain later on today for the C-spine and to rule out demyelinating disease, lab results are reviewed chest tightness may be related to asthma due to rasp panel positive for multiple allergens, but that would not explain the gait disturbance issues, neurology following very closely This is a pleasant 39 years old male with past medical history of hypertension, pneumonia, kidney stone, status post bronchoscopy. COPD, pulmonary nodule, recent right upper lobe pneumonia, bronchitis, possible obstructive sleep apnea, obesity. He is a patient of Dr. Woody. he was recently discharge from [facility] for pneumonia and copd . Patient states in since September every day he has symptoms of hot flashes, numbness and tingling or just feeling cold and his right leg and other parts of the body associated with some light headedness and episodic dyspnea , Objective - Vital Signs Vital signs: Vital Signs Temp 97.7 F 11/08/19 16:00 Pulse 102 H 11/08/19 16:00 Resp 19 11/08/19 16:00 BP 145/90 11/08/19 16:00 Pulse Ox 95 11/08/19 16:00 Intake & Output 11/08/19 11/08/19 11/09/19 06:59 18:59 06:59 Intake Total 240 600 Balance 240 600 Intake: Oral 240 600 Other: Voiding Method Toilet Toilet # Voids 1 1 - Constitutional General appearance: Present: average body habitus, cooperative, disheveled - EENT Eyes: Present: PERRLA ENT: Present: normal oropharynx Ears: bilateral: normal - Neck Neck: Present: normal ROM Carotids: bilateral: upstroke normal Thyroid: bilateral: normal size - Respiratory Respiratory: bilateral: CTA - Cardiovascular Rhythm: regular Heart sounds: normal: S1, S2 - Gastrointestinal General gastrointestinal: Present: normal bowel sounds - Integumentary Integumentary: Present: normal turgor - Neurologic Neurologic: Present: CNII-XII intact - Musculoskeletal Musculoskeletal: Present: generalized weakness, strength equal bilaterally - Psychiatric Psychiatric: Present: A&O x's 3, appropriate affect, intact judgment & insight - Labs CBC & Chem 7: 03/13/20 09:06 11/08/19 09:06 Labs: Microbiology - Last 24 Hours (Table) 11/03/19 21:20 Blood Culture - Preliminary Blood No Growth after 96 hours Assessment and Plan Assessment: Generalized weakness Mild ALLERGIC asthma intermittent Diffuse chest tightness IgE level normal but her last is positive for multiple allergens Hypothyroidism Plan: Continue as needed bronchodilator continue anxiety made sense, awaiting MRI re sults and reports Time with Patient: Greater than 30
--- NOTE | 2019-11-08 21:00 | PN ---
PROGRESS NOTE DATE OF SERVICE: 11/08/2019 This 39-year-old gentleman who was admitted with generalized weakness and tiredness was thought to have either Guillain-[place] syndrome or possible infective polyneuropathy. Patient complains of significant weakness proximal muscle weakness and gait dysfunction and imbalance. Patient is being closely monitored. ECF rehab is also considered a possibility. The patient will definitely need more than 2 nights of hospital stay to diagnose and evaluate the above-mentioned multiple medical issues, which could be life-threatening. No chest pain. No palpitations. Past medical history reviewed. REVIEW OF SYSTEMS: CARDIOVASCULAR SYSTEM: No angina, palpitations. RESPIRATORY SYSTEM: As mentioned earlier. GI: As mentioned earlier. : No dysuria or retention. NERVOUS SYSTEM: No numbness, weakness. CURRENT MEDICATIONS: Reviewed. They include: 1. Ventolin 2.5 q.i.d. p.r.n. 2. Xanax 0.25 t.i.d. 3. Aspirin 81 mg daily. 4. Pulmicort. 5. Heparin 5000 units subcutaneously b.i.d. 6. Motrin. 7. Claritin 10 mg daily. 8. Antivert. 9. Narcan. 10.Protonix. 11.Restoril. PHYSICAL EXAMINATION: Patient is alert, oriented x3. Pulse is 102, blood pressure 144/90, respiration 19, temperature 97.7, pulse ox 95% on room air. HEENT: Conjunctivae normal. NECK: No jugular venous distention. CARDIOVASCULAR SYSTEM: S1, S2 muffled. RESPIRATORY SYSTEM: Breath sounds diminished at the bases. Bilateral scattered rhonchi and crackles. ABDOMEN: Soft, non-tender. No mass palpable. LEGS: No edema. No swelling. NERVOUS SYSTEM: Diffusely weak. LABS: CBC, BMP noted. D-dimer is negative. IgE is negative. Rheumatoid factor and MARCELLE are also negative. ASSESSMENT: 1. Generalized weakness and tiredness. Rule out possible Guillain-[place] syndrome or post-viral demyelinating polyneuropathy. 2. Possible viral syndrome with history of pneumonia. 3. History of reactive bronchospasm and asthmatic bronchitis, possibly. 4. Hypertension. 5. History of nephrolithiasis. 6. History of bronchoscopy. 7. Obesity with body mass index of 37.6. 8. Increased ALT. 9. Increased random blood sugar. 10.Severe gait dysfunction secondary to above. 11.FULL CODE. RECOMMENDATIONS AND DISCUSSION: In this 39-year-old gentleman who presented with multiple complex medical issues, we will monitor the patient closely, continue the current medications, continue symptomatic treatment. Otherwise at this time I would recommend PT/OT evaluation and possible ECF rehab. As mentioned earlier, the patient will need a full admission for the above-mentioned medical issues, and this was discussed with staff. I have not heard anything from the insurance company. We will continue to monitor. Also recommend that the patient follow up with Dr. Proctor closely, also. MMCANDIDAL / IJN: [id number] / MTDGhanshyam
[2019-11-09 07:39] LABS: Basophils % (A) 0 %; Eosinophils # (A) 0.3 k/uL (0-0.7); Eosinophils % (A) 5 %; HCT 47.5 % (39.0-53.0); HGB 15.6 gm/dL (13.0-17.5); Lymphocytes # (A) 2.1 k/uL (1.0-4.8); Lymphocytes % (A) 34 %; MCH 28.5 pg (25.0-35.0); MCHC 32.9 g/dL (31.0-37.0); MCV 86.8 fL (80.0-100.0); Mean Platelet Volume 6.5; Monocytes # (A) 0.6 k/uL (0-1.0); Monocytes % (A) 9 %; Neutrophils % (A) 49 %; Platelet Count 299 k/uL (150-450); RBC 5.47 m/uL (4.30-5.90); RDW 13.4 % (11.5-15.5); WBC 6.1 k/uL (3.8-10.6)
[2019-11-09 07:55] LABS: African American GFR (CKD) >90 (>60 ml/min/1.73 sqM); Anion Gap 6 mmol/L; Blood Urea Nitrogen 15 mg/dL (9-20); Calcium 9.1 mg/dL (8.4-10.2); Carbon Dioxide 32 mmol/L (22-30); Chloride 101 mmol/L (98-107); Glucose 85 mg/dL (74-99); Non-African American GFR(CKD) 80 (>60 ml/min/1.73 sqM); Potassium 4.7 mmol/L (3.5-5.1); Sodium 139 mmol/L (137-145)
[2019-11-09] MEDS: BUDESONIDE 0.5 MG/2 ML NEBU INHALATION SCH ×2 (08:18→20:30)
[2019-11-09] MEDS: ASPIRIN 81 MG PO SCH (09:48)
[2019-11-09] MEDS: LORATADINE 10 MG TAB PO SCH (09:48)
[2019-11-09] MEDS: MECLIZINE 12.5 MG TAB PO SCH ×3 (09:48→21:14)
[2019-11-09] MEDS: PANTOPRAZOLE 40 MG/10 ML VIAL IVP SCH ×2 (09:48→20:50)
[2019-11-09] MEDS: HEPARIN SODIUM,PORCINE 5,000 UNIT/ML 1 ML VIAL SQ SCH ×2 (09:48→20:50)
--- NOTE | 2019-11-09 13:43 | P.PN ---
Subjective Progress Note Date: 11/09/19 Principal diagnosis: ALLERGY asthma, chest tightness, generalized weakness and inability, ongoing dizziness with gait imbalance paresthesia 11/09/2019, patient seen eval examined during the rounds reviewed medications reviewed, patient has been doing very well from respiratory standpoint denies any wheezing cuff congestion some subjective shortness of breath is present, patient is being evaluated for rehab placement, with further evaluation and neurology as outpatient likely will be discharged later on today or tomorrow, recommend follow-up in outpatient so further workup and evaluation can be completed, MRI of the brain could not be done due to severe claustrophobia lorena ent will undergo as outpatient 11/08/2019, patient seen eval reexamined during the rounds labs reviewed medications reviewed patient is for MRSA and MRI of the brain later on today for the C-spine and to rule out demyelinating disease, lab results are reviewed chest tightness may be related to asthma due to rasp panel positive for multiple allergens, but that would not explain the gait disturbance issues, neurology following very closely This is a pleasant 39 years old male with past medical history of hypertension, pneumonia, kidney stone, status post bronchoscopy. COPD, pulmonary nodule, recent right upper lobe pneumonia, bronchitis, possible obstructive sleep apnea, obesity. He is a patient of Dr. Woody. he was recently discharge from [facility] for pneumonia and copd . Patient states in since September every day he has symptoms of hot flashes, numbness and tingling or just feeling cold and his right leg and other parts of the body associated with some light headedness and episodic dyspnea , Objective - Vital Signs Vital signs: Vital Signs Temp 98.0 F 11/09/19 07:58 Pulse 72 11/09/19 07:58 Resp 18 11/09/19 07:58 BP 108/75 11/09/19 07:58 Pulse Ox 95 11/09/19 07:58 Intake & Output 11/08/19 11/09/19 11/09/19 18:59 06:59 18:59 Intake Total 600 Balance 600 Intake: Oral 600 Other: Voiding Method Toilet Toilet Toilet # Voids 1 1 - Exam - Constitutional General appearance: Present: average body habitus, cooperative, disheveled - EENT Eyes: Present: PERRLA ENT: Present: normal oropharynx Ears: bilateral: normal - Neck Neck: Present: normal ROM Carotids: bilateral: upstroke normal Thyroid: bilateral: normal size - Respiratory Respiratory: bilateral: CTA - Cardiovascular Rhythm: regular Heart sounds: normal: S1, S2 - Gastrointestinal General gastrointestinal: Present: normal bowel sounds - Integumentary Integumentary: Present: normal turgor - Neurologic Neurologic: Present: CNII-XII intact - Musculoskeletal Musculoskeletal: Present: generalized weakness, strength equal bilaterally - Psychiatric Psychiatric: Present: A&O x's 3, appropriate affect, intact judgment & insight - Labs CBC & Chem 7: 11/09/19 06:12 11/09/19 06:12 Labs: Abnormal Lab Results - Last 24 Hours (Table) 11/09/19 Range/Units 06:12 Carbon Dioxide 32 H (22-30) mmol/L Microbiology - Last 24 Hours (Table) 11/03/19 21:20 Blood Culture - Preliminary Blood No Growth after 120 hours Assessment and Plan Assessment: Generalized weakness Mild ALLERGIC asthma intermittent Diffuse chest tightness IgE level normal but her last is positive for multiple allergens Hypothyroidism Plan: Continue as needed bronchodilator continue anxiety made sense, further evaluation outpatient basis Agri with discharge planning Time with Patient: Greater than 30
--- NOTE | 2019-11-09 21:09 | PN ---
PROGRESS NOTE DATE OF SERVICE: 11/09/2019 This 39-year-old gentleman previously healthy, was admitted after prolonged bout of influenza like illness. The patient has significant difficulties in walking and possibility of Guillain [place] was considered. The patient is acting like most likely a postviral polyneuropathy or myopathy. Neurology following the patient closely. PT/OT is evaluating the patient. ECF rehab is recommended at this time. The basic labs have been negative including influenza. Allergy test showed several positive titers. No chest pain. No palpitations. PAST MEDICAL HISTORY: Reviewed. REVIEW OF SYSTEMS: Cardiovascular system is as mentioned earlier. Respiratory: As mentioned earlier. GI: As mentioned earlier. no dysuria. Nervous system as mentioned earlier. CURRENT MEDICATIONS: Reviewed and include: 1. Ventolin p.r.n. 2. Xanax 0.5 t.i.d. 3. Aspirin 81 mg. 4. Pulmicort 0.5 mg daily. 5. Motrin. 6. Claritin. 7. Antivert. 8. Narcan. 9. Protonix. 10.Restoril. PHYSICAL EXAM: Patient is alert, oriented times three. Pulse is 72. Blood pressure 108/75, respirations 18, temperature 98 degrees, pulse ox 94% on room air. HEENT: Conjunctivae normal. NECK: No JVD. CARDIOVASCULAR: S1, S2 muffled. RESPIRATORY: Breath sounds diminished in the bases. A few scattered rhonchi and crackles. ABDOMEN: Soft, nontender. LEGS are no edema. No swelling. CENTRAL NERVOUS SYSTEM: Diffusely weak, mostly in the proximal muscles and the upper and lower limbs. LABS: CBC and BMP noted. ASSESSMENT: 1. 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 2. Rule out Guillain [place] syndrome. 3. History of pneumonia and viral syndrome. 4. History of reactive bronchospasm and asthmatic bronchitis possibly. 5. Hypertension. 6. History of nephrolithiasis. 7. History of bronchoscopy. 8. Obesity with body mass of 37.6. 9. Increased ALT. 10.Increased random blood sugar. 11.Severe gait dysfunction secondary to above. 12.FULL CODE. RECOMMENDATIONS AND DISCUSSION: Recommend to continue current medications, management and symptomatic treatment. Otherwise, at this time, I recommend continue with current medications, continue with PT/OT evaluation. Otherwise, closely follow with Neurology and Pulmonology. Further recommendations to follow. The patient should be qualifying for full inpatient admission because of the multiple complex medical issues as listed above. An EKG was also done which showed normal findings. I would also recommend a 2D echo with Doppler to complete workup. PAUL / ELIJAH: [id number] / MTDD
[2019-11-09] MEDS: IBUPROFEN 400 MG TAB PO PRN (21:57)
[2019-11-09] MEDS: SODIUM CHLORIDE 0.9% 1,000 ML IV SCH (23:48)
[2019-11-10 06:37] LABS: Basophils % (A) 1 %; Eosinophils # (A) 0.3 k/uL (0-0.7); Eosinophils % (A) 4 %; HCT 46.8 % (39.0-53.0); HGB 15.5 gm/dL (13.0-17.5); Lymphocytes # (A) 1.9 k/uL (1.0-4.8); Lymphocytes % (A) 30 %; MCH 28.7 pg (25.0-35.0); MCV 86.7 fL (80.0-100.0); Mean Platelet Volume 6.3; Monocytes # (A) 0.7 k/uL (0-1.0); Monocytes % (A) 10 %; Neutrophils # (A) 3.2 k/uL (1.3-7.7); Neutrophils % (A) 52 %; Platelet Count 290 k/uL (150-450); RDW 13.2 % (11.5-15.5); WBC 6.3 k/uL (3.8-10.6)
[2019-11-10 06:55] LABS: African American GFR (CKD) >90 (>60 ml/min/1.73 sqM); Anion Gap 9 mmol/L; Blood Urea Nitrogen 16 mg/dL (9-20); Calcium 9.1 mg/dL (8.4-10.2); Carbon Dioxide 27 mmol/L (22-30); Chloride 101 mmol/L (98-107); Glucose 93 mg/dL (74-99); Non-African American GFR(CKD) 80 (>60 ml/min/1.73 sqM); Potassium 4.2 mmol/L (3.5-5.1); Sodium 137 mmol/L (137-145)
[2019-11-10] MEDS: BUDESONIDE 0.5 MG/2 ML NEBU INHALATION SCH ×2 (08:09→19:24)
[2019-11-10] MEDS: ASPIRIN 81 MG PO SCH (08:20)
[2019-11-10] MEDS: PANTOPRAZOLE 40 MG/10 ML VIAL IVP SCH ×2 (08:20→21:19)
[2019-11-10] MEDS: LORATADINE 10 MG TAB PO SCH (08:20)
[2019-11-10] MEDS: MECLIZINE 12.5 MG TAB PO SCH ×3 (08:20→21:20)
[2019-11-10] MEDS: HEPARIN SODIUM,PORCINE 5,000 UNIT/ML 1 ML VIAL SQ SCH ×2 (08:20→21:20)
--- NOTE | 2019-11-10 12:18 | P.PN ---
Subjective Progress Note Date: 11/10/19 Principal diagnosis: ALLERGY asthma, chest tightness, generalized weakness and inability, ongoing dizziness with gait imbalance paresthesia 11/10/2019, patient seen and evaluated examined overall respiratory status has been stable, patient has shortness of breath on activity and exertion, neurology has been following MRI couldn't be performed patient is undergoing rehabilitatio n and likely will be placed in ECF 11/09/2019, patient seen eval examined during the rounds reviewed medications reviewed, patient has been doing very well from respiratory standpoint denies any wheezing cuff congestion some subjective shortness of breath is present, patient is being evaluated for rehab placement, with further evaluation and neurology as outpatient likely will be discharged later on today or tomorrow, recommend follow-up in outpatient so further workup and evaluation can be com pleted, MRI of the brain could not be done due to severe claustrophobia patient will undergo as outpatient 11/08/2019, patient seen eval reexamined during the rounds labs reviewed medications reviewed patient is for MRSA and MRI of the brain later on today for the C-spine and to rule out demyelinating disease, lab results are reviewed chest tightness may be related to asthma due to rasp panel positive for multiple allergens, but that would not explain the gait disturbance issues, neurology following very closely This is a pleasant 39 years old male with past medical history of hypertension, pneumonia, kidney stone, status post bronchoscopy. COPD, pulmonary nodule, recent right upper lobe pneumonia, bronchitis, possible obstructive sleep apnea, obesity. He is a patient of Dr. Woody. he was recently discharge from [facility] for pneumonia and copd . Patient states in since September every day he has symptoms of hot flashes, numbness and tingling or just feeling cold and his right leg and other parts of the body associated with some light headedness and episodic dyspnea , Objective - Vital Signs Vital signs: Vital Signs Temp 97.4 F L 11/10/19 04:35 Pulse 66 11/10/19 04:35 Resp 18 11/10/19 04:35 BP 126/68 11/10/19 04:35 Pulse Ox 93 L 11/10/19 04:35 Intake & Output 11/09/19 11/10/19 11/10/19 18:59 06:59 18:59 Other: Voiding Method Toilet Toilet # Voids 1 1 - Exam - Constitutional General appearance: Present: average body habitus, cooperative, disheveled - EENT Eyes: Present: PERRLA ENT: Present: normal oropharynx Ears: bilateral: normal - Neck Neck: Present: normal ROM Carotids: bilateral: upstroke normal Thyroid: bilateral: normal size - Respiratory Respiratory: bilateral: CTA - Cardiovascular Rhythm: regular Heart sounds: normal: S1, S2 - Gastrointestinal General gastrointestinal: Present: normal bowel sounds - Integumentary Integumentary: Present: normal turgor - Neurologic Neurologic: Present: CNII-XII intact - Musculoskeletal Musculoskeletal: Present: generalized weakness, strength equal bilaterally - Psychiatric Psychiatric: Present: A&O x's 3, appropriate affect, intact judgment & insight - Labs CBC & Chem 7: 11/10/19 06:15 11/10/19 06:15 Labs: Microbiology - Last 24 Hours (Table) 11/03/19 21:20 Blood Culture - Final Blood No Growth after 144 hours Assessment and Plan Assessment: Generalized weakness Mild ALLERGIC asthma intermittent Diffuse chest tightness IgE level normal but her last is positive for multiple allergens Hypothyroidism Plan: Continue as needed bronchodilator continue anxiety made sense, further eval uation outpatient basis Agri with discharge planning Time with Patient: Greater than 30
--- NOTE | 2019-11-10 20:06 | PN ---
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 No chest pain. No palpitations. ECF rehab is being awaited. PHYSICAL EXAM: Alert and oriented x3. Pulse is 66. Blood pressure 126/60, respiration 18, temperature 97.4, pulse ox 93 percent on CPAP, 93% on room air. HEENT: Conjunctivae normal. NECK: No JVD. CARDIOVASCULAR: S1, S2 normal. RESPIRATIONS: Breath sounds diminished in the bases. No rhonchi. No crackles. ABDOMEN: Soft, nontender. LEGS: Significant weakness persists. Gait dysfunction also present. CENTRAL NERVOUS SYSTEM: No sensory abnormalities. No signs of cerebellar dysfunction. LABORATORY DATA: CBC, BMP noted. ASSESSMENT: 1. 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 2. Rule out Guillain Tunnelton syndrome. 3. History of pneumonia and postviral syndrome. 4. History of reactive bronchospasm and as well as asthmatic bronchitis possibly. 5. Hypertension. 6. History of nephrolithiasis. 7. History of bronchoscopy. 8. Obesity with body mass index of 37.6. 9. Increased ALT. 10.Increased random blood sugar. 11.Severe gait dysfunction secondary to above. 12.FULL CODE. RECOMMENDATIONS AND DISCUSSION: Recommend to continue current medications, management and symptomatic treatment. Continue to follow with Neurology and PT/OT evaluation, possible ECF rehab and supplement vitamins also. The prognosis extremely guarded because of multiple complex medical issues. Further recommendations to follow. Bronchodilators per Pulmonary. See orders for details. MMODL / IJN: [id number] /
[2019-11-10 21:31] VITALS: RESP 18
[2019-11-10] MEDS: IBUPROFEN 400 MG TAB PO PRN (21:31)
[2019-11-10 22:59] LABS: Alternaria Alternata IgG 2.3 mcg/mL (< 13.6); Aspergillus fumigatus IgG Not detected (Not detected); Aureobasidium pullulans IgG 4.1 mcg/mL (< 13.6); Cladosporium herbarium IgG 15.5 mcg/mL (< 14.7); Phoma ssp. IgG 2.1 mcg/mL (< 6.6); Saccaharomospora viridis Not detected (Not detected); Saccaharopoly. rectivirgula Not detected (Not detected)
[2019-11-10] MEDS: SODIUM CHLORIDE 0.9% 1,000 ML IV SCH (23:37)
[2019-11-11 06:09] VITALS: BP 102/67; PULSE 67; TEMP 98.1
[2019-11-11] MEDS: BUDESONIDE 0.5 MG/2 ML NEBU INHALATION SCH (07:42)
[2019-11-11] MEDS: HEPARIN SODIUM,PORCINE 5,000 UNIT/ML 1 ML VIAL SQ SCH (07:56)
[2019-11-11] MEDS: PANTOPRAZOLE 40 MG/10 ML VIAL IVP SCH (07:58)
[2019-11-11] MEDS: MECLIZINE 12.5 MG TAB PO SCH (07:58)
[2019-11-11] MEDS: ASPIRIN 81 MG PO SCH (07:58)
[2019-11-11] MEDS: LORATADINE 10 MG TAB PO SCH (07:59)
[2019-11-11] MEDS ORDERED: MULTIVITAMINS, THERA 1 EACH TAB PO SCH (12:00)
[2019-11-11] MEDS ORDERED: FOLIC ACID 1 MG TAB PO SCH (12:00)
[2019-11-11] MEDS ORDERED: THIAMINE 100 MG TAB PO SCH (12:00)
--- NOTE | 2019-11-11 12:01 | P.DS ---
Providers Date of admission: 11/06/19 13:46 Expected date of discharge: 11/11/19 Attending physician: Luz Quispe Consults: 11/04/19 16:23 Consult Physician Urgent Consulting Provider: Quincy Davis Consult Reason/Comments: episodic sob Do you want consulting provider notified?: Yes Consult Physician Urgent Consulting Provider: Ziggy Velasco Consult Reason/Comments: lightheadedness and numbness in right leg Do you want consulting provider notified?: Yes 11/05/19 06:14 Consult Physician Urgent Consulting Provider: Mariana Anthony Consult Reason/Comments: chest pressure and lightheadedness Do you want consulting provider notified?: Yes Primary care physician: Son Woody [facility] Course: Final diagnosis Generalized weakness and gait dysfunction, 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 Patient will follow-up with Dr. Woody upon discharge. Patient will also be following up with neurology, pulmonary, and cardiology in the outpatient setting. Total time taken is 35 minutes. 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 Patient was being followed by PT/OT recommending subacute rehab. Multiple medical consultations following. Patient was seen and evaluated by cardiology, neurology, and pulmonary and will follow-up in the outpatient setting. Patient will be going to [facility] for continued PT/OT therapy for strength and mobility. Patient does use CPAP at night and will continue at this time. Patient also will continue with bronchodilators in the outpatient setting. Currently no reports of chest pain, shortness of breath, or palpitations. Patient is afebrile. No reports of nausea or vomiting and patient is tolerating diet. Guarded prognosis. Currently patient's condition is stable and will be going to [facility] today. On exam vital signs are stable. Temp is 98.1 F, pulse is 67, respirations are 18, blood pressure is 102/67, oxygen saturation is 93-95% on room air. Cardio S1, S2 are muffled. Respiratory shows diminished breath sounds at the bases with a few scattered rhonchi noted. Abdomen is soft and nontender. Nervous system shows diffuse weakness. Please refer to medication reconciliation sheet for a list of medications. Patient Condition at Discharge: Stable Plan - Discharge Summary Discharge Rx Participant: No New Discharge Prescriptions: New Aspirin 81 mg PO DAILY #30 chew Budesonide [Pulmicort] 0.5 mg INHALATION RT-BID 15 Days #30 ml Albuterol Inhaler [Ventolin Hfa Inhaler] 1 - 2 puff INHALATION RT-Q6H PRN #1 inhaler PRN Reason: Shortness Of Breath Or Wheezing Meclizine [Antivert] 12.5 mg PO TID PRN tab PRN Reason: Vertigo Folic Acid 1 mg PO DAILY@1200 tab Multivitamins, Thera [Multivitamin (formulary)] 1 each PO DAILY@1200 tab Thiamine [Vitamin B-1] 100 mg PO DAILY@1200 tab Continue Atenolol 25 mg PO DAILY@1200 Cetirizine HCl [Zyrtec] 10 mg PO DAILY Omeprazole/Sodium Bicarbonate [Omeppi 40 mg-1,100 mg Capsule] 1 cap PO DAILY Discontinued Meclizine [Antivert] 25 mg PO TID PRN PRN Reason: Vertigo LORazepam [Ativan] 0.5 mg PO BID PRN PRN Reason: Anxiety Discharge Medication List Atenolol 25 mg PO DAILY@1200 11/04/19 [History] Cetirizine HCl [Zyrtec] 10 mg PO DAILY 11/04/19 [History] Omeprazole/Sodium Bicarbonate [Omeppi 40 mg-1,100 mg Capsule] 1 cap PO DAILY 11/04/19 [History] Albuterol Inhaler [Ventolin Hfa Inhaler] 1 - 2 puff INHALATION RT-Q6H PRN #1 inhaler 11/06/19 [Rx] Aspirin 81 mg PO DAILY #30 chew 11/06/19 [Rx] Budesonide [Pulmicort] 0.5 mg INHALATION RT-BID 15 Days #30 ml 11/06/19 [Rx] Folic Acid 1 mg PO DAILY@1200 tab 11/11/19 [Rx] Meclizine [Antivert] 12.5 mg PO TID PRN tab 11/11/19 [Rx] Multivitamins, Thera [Multivitamin (formulary)] 1 each PO DAILY@1200 tab 11/11/19 [Rx] Thiamine [Vitamin B-1] 100 mg PO DAILY@1200 tab 11/11/19 [Rx] Follow up Appointment(s)/Referral(s): Tad Ibanez MD [STAFF PHYSICIAN] - 2 Weeks (Neurologist, we recommend EMG testing of upper and lower extremities) Son Woody MD [Primary Care Provider] - 1-2 days [facility], [NON-STAFF] - 1 Week Quincy Davis MD [STAFF PHYSICIAN] - 1 Week Teoiflo Villarreal MD [STAFF PHYSICIAN] - 2 Weeks (Orthopedic Coder) Activity/Diet/Wound Care/Special Instructions: Patient is going to [facility] on [place] We recommend losing weight with diet and exercise Diet: 18 kcal per day Activity as tolerated Follow-up with primary care provider upon discharge Follow-up with neurology in the outpatient setting Follow-up with cardiology in the outpatient setting Discharge Disposition: TRANSFER TO SNF/ECF
--- NOTE | 2019-11-11 12:54 | P.PN ---
Subjective Progress Note Date: 11/11/19 Principal diagnosis: ALLERGY asthma, chest tightness, generalized weakness and inability, ongoing dizziness with gait imbalance paresthesia 11/11/2019 patient, patient seen and evaluated examined cough congestion shortness of breath improved able to ambulate in the room and hallway, patient is being sent discharged to rehab area by primary service was further evaluation pending, further respiratory evaluation as outpatient 11/10/2019, patient seen and evaluated examined overall respiratory status has been stable, patient has shortness of breath on activity and exertion, neurology has been following MRI couldn't be performed patient is undergoing rehabilitation and likely will be placed in ECF 11/09/2019, patient seen eval examined during the rounds reviewed medications reviewed, patient has been doing very well from respiratory standpoint denies any wheezing cuff congestion some subjective shortness of breath is present, patient is being evaluated for rehab placement, with further evaluation and neurology as outpatient likely will be discharged later on today or tomorrow, recommend follow-up in outpatient so further workup and evaluation can be completed, MRI of the brain could not be done due to severe claustrophobia patient will undergo as outpatient 11/08/2019, patient seen eval reexamined during the rounds labs reviewed medications reviewed patient is for MRSA and MRI of the brain later on today for the C-spine and to rule out demyelinating disease, lab results are reviewed chest tightness may be related to asthma due to rasp panel positive for multiple allergens, but that would not explain the gait disturbance issues, neurology following very closely This is a pleasant 39 years old male with past medical history of hypertension, pneumonia, kidney stone, status post bronchoscopy. COPD, pulmonary nodule, recent right upper lobe pneumonia, bronchitis, possible obstructive sleep apnea, obesity. He is a patient of Dr. Woody. he was recently discharge from [facility] for pneumonia and copd . Patient states in since September every day he has symptoms of hot flashes, numbness and tingling or just feeling cold and his right leg and other parts of the body associated with some light headedness and episodic dyspnea , Objective - Vital Signs Vital signs: Vital Signs Temp 98.1 F 11/11/19 05:00 Pulse 67 11/11/19 05:00 Resp 18 11/11/19 05:00 BP 102/67 11/11/19 05:00 Pulse Ox 96 03/16/20 05:00 Intake & Output 11/10/19 11/11/19 11/11/19 18:59 06:59 18:59 Intake Total 160 250 Balance 160 250 Intake: IV 160 Sodium Chloride 0.9% 1, 160 000 ml @ 20 mls/hr IV . Q24H [facility] Rx#:[id number] Oral 250 Other: Voiding Method Toilet # Voids 2 1 - Exam - Constitutional General appearance: Present: average body habitus, cooperative, disheveled - EENT Eyes: Present: PERRLA ENT: Present: normal oropharynx Ears: bilateral: normal - Neck Neck: Present: normal ROM Carotids: bilateral: upstroke normal Thyroid: bilateral: normal size - Respiratory Respiratory: bilateral: CTA - Cardiovascular Rhythm: regular Heart sounds: normal: S1, S2 - Gastrointestinal General gastrointestinal: Present: normal bowel sounds - Integumentary Integumentary: Present: normal turgor - Neurologic Neurologic: Present: CNII-XII intact - Musculoskeletal Musculoskeletal: Present: generalized weakness, strength equal bilaterally - Psychiatric Psychiatric: Present: A&O x's 3, appropriate affect, intact judgment & insight - Labs CBC & Chem 7: 11/10/19 06:15 11/10/19 06:15 Labs: Abnormal Lab Results - Last 24 Hours (Table) 11/05/19 Range/Units 07:01 Cladosporium herbar IgG 15.5 H (< 14.7) mcg/mL Assessment and Plan Assessment: Generalized weakness Mild ALLERGIC asthma intermittent Diffuse chest tightness IgE level normal but her last is positive for multiple allergens Hypothyroidism Plan: Continue as needed bronchodilator continue anxiety made sense, further evaluation outpatient basis Agri with discharge planning Time with Patient: Greater than 30
--- NOTE | 2019-11-20 16:52 | P.PN ---
Progress Note - Text Progress Note Date: 11/20/19 Telephone documentation: Spoke to patient on the phone, regarding his condition. States he is doing much better. He is able to walk. The cold sensation has all resolved. Patient was not able to undergo MRI while in the hospital because of claustrophobia. He may still get it done as an open MRI. Neurologically he has much improved. Patient will follow up with his primary physician.
== END 2019-11-11 13:37 ==
LOC: EC 20:05 → 1SOBS 11-04 00:09 → INTOOBSV 11-06 13:46 → OBSVTOIN 11-06 13:46 → 6NMEDSUR 11-09 16:29
PROVIDERS: ADMIT Hospitalist; ATTEND Hospitalist
DX: R53.1 Weakness (principal); R26.9 Unspecified abnormalities of gait and mobility; R07.9 Chest pain, unspecified; D75.1 Secondary polycythemia; E03.9 Hypothyroidism, unspecified; E66.9 Obesity, unspecified; Z68.37 Body mass index [BMI] 37.0-37.9, adult; I10 Essential (primary) hypertension; J45.20 Mild intermittent asthma, uncomplicated; Z79.899 Other long term (current) drug therapy; Z87.01 Personal history of pneumonia (recurrent); Z87.442 Personal history of urinary calculi; Z91.81 History of falling; Z88.6 Allergy status to analgesic agent; Z88.1 Allergy status to other antibiotic agents; Z88.0 Allergy status to penicillin; J44.9 Chronic obstructive pulmonary disease, unspecified; F40.240 Claustrophobia; R94.5 Abnormal results of liver function studies; R73.9 Hyperglycemia, unspecified; R51 Headache
CPT/HCPCS: 96372 ×6; 96374; 96375; 96376 ×6; 99285; 36415; 93005 ×2; 97530; 97162; 97535; 97166; 83921; 85379; 86003; 83880; 80053; 80048 ×4; 86001; 85652; 84443; 82607; 82746; 83605; 83735; 84484 ×2; 85025 ×4; 85610; 85730; 86140; 86431; 87040; 86609; 86606; 82785; 86038; 87502; 76000; 71046; 74019; 71250; G0378 ×8; J1644 ×6; C9113 ×5

== ENCOUNTER 2020-03-01 23:06 | Emergency (ER) | payer BC ==
[2020-03-01 23:15] VITALS: PULSE 64
[2020-03-01] MEDS ORDERED: SODIUM CHLORIDE 0.9% 500 ML 500 ML IV STA (23:34)
[2020-03-01] MEDS ORDERED: KETOROLAC 30 MG/ML 1 ML VIAL IVP STA (23:34)
--- NOTE | 2020-03-01 23:38 | ED ---
Abdominal Pain HPI - General Chief Complaint: Abdominal Pain Stated Complaint: Hernia Time Seen by Provider: 03/01/20 23:23 Source: patient Mode of arrival: wheelchair Limitations: no limitations - History of Present Illness Initial Comments: This patient is a 40-year-old man complaining of worsening of upper abdominal pain. Patient has been having weeks of symptoms that included a lot of belching, upper abdominal discomfort, and worsening symptoms with food. He was seen by his physician last week who had run some tests and found a large hiatal hernia, and had also arranged some other tests for this coming week. In addition the patient had some medication adjustments, but he states that his symptoms have continued to worsen over the past few days. He is having epigastric and upper abdominal pain. He is having a lot of belching. He states that his symptoms are worse when he tries to eat anything. He is also having nausea but hasn't vomited. In addition, patient states she has not had a bowel movement since Monday which is abnormal for him he usually has multiple bowel movements per day. He has had no change in urination. Patient denies swelling or pain into the scrotum or testicles. MD Complaint: abdominal pain -: week(s) Location: epigastric Radiation: none Migration to: no migration Severity: moderate Quality: aching, fullness Consistency: constant Improves With: nothing Worsens With: eating Associated Symptoms: nausea, constipation - Related Data Home Medications Medication Instructions Recorded Confirmed Atenolol 25 mg PO DAILY@1200 11/04/19 11/04/19 Cetirizine HCl [Zyrtec] 10 mg PO DAILY 11/04/19 11/04/19 Omeprazole/Sodium Bicarbonate 1 cap PO DAILY 11/04/19 11/04/19 [Omeppi 40 mg-1,100 mg Capsule] Previous Rx's Medication Instructions Recorded Albuterol Inhaler (Mhu) [Ventolin 1 - 2 puff INHALATION RT-Q6H PRN 11/06/19 Hfa Inhaler (Mhu)] #1 inhaler Aspirin 81 mg PO DAILY #30 chew 11/06/19 Budesonide [Pulmicort] 0.5 mg INHALATION RT-BID 15 Days 11/06/19 #30 ml Folic Acid 1 mg PO DAILY@1200 tab 11/11/19 Meclizine [Antivert] 12.5 mg PO TID PRN tab 11/11/19 Multivitamins, Thera [Multivitamin 1 each PO DAILY@1200 tab 11/11/19 (formulary)] Thiamine [Vitamin B-1] 100 mg PO DAILY@1200 tab 11/11/19 Dicyclomine [Bentyl] 20 mg PO QID #15 tablet 03/02/20 Dicyclomine [Bentyl] 20 mg PO QID #15 tablet 03/02/20 Ondansetron Odt [Zofran ODT] 4 mg PO Q8HR PRN #10 tab 03/02/20 Ondansetron Odt [Zofran ODT] 4 mg PO Q8HR PRN #10 tab 03/02/20 Allergies Allergy/AdvReac Type Severity Reaction Status Date / Time acetaminophen [From Tylenol] Allergy Rash/Hives Verified 03/01/20 23:15 cephalexin [From Keflex] Allergy Rash/Hives Verified 03/01/20 23:15 Penicillins Allergy Rash/Hives Verified 03/01/20 23:15 Review of Systems ROS Statement: Those systems with pertinent positive or pertinent negative responses have been documented in the HPI. ROS Other: All systems not noted in ROS Statement are negative. Constitutional: Denies: fever, chills Respiratory: Denies: cough, dyspnea Cardiovascular: Denies: chest pain, palpitations, edema, syncope Gastrointestinal: Reports: abdominal pain, nausea, constipation. Denies: ramona na, hematochezia Genitourinary: Denies: dysuria, frequency, hematuria, testicular pain, testicular mass Musculoskeletal: Denies: back pain Skin: Denies: rash Neurological: Denies: headache, weakness, numbness Past Medical History Past Medical History: Hypertension, Pneumonia Additional Past Medical History / Comment(s): kidney stones, hiatial hernia History of Any Multi-Drug Resistant Organisms: None Reported Past Surgical History: Hernia Repair Additional Past Surgical History / Comment(s): bronchoscopy Past Psychological History: No Psychological Hx Reported Smoking Status: Never smoker Past Alcohol Use History: Rare Past Drug Use History: None Reported General Exam Limitations: no limitations General appearance: alert, in no apparent distress Head exam: Present: atraumatic, normocephalic Eye exam: Present: normal appearance. Absent: scleral icterus, conjunctival injection ENT exam: Present: normal oropharynx Neck exam: Present: normal inspection Respiratory exam: Present: normal lung sounds bilaterally. Absent: respiratory distress, wheezes, rales, rhonchi, stridor Cardiovascular Exam: Present: regular rate, normal rhythm, normal heart sounds. Absent: systolic murmur, diastolic murmur, rubs, gallop GI/Abdominal exam: Present: soft, tenderness (Right upper quadrant), normal bowel sounds. Absent: distended, guarding, rebound, rigid, mass, pulsatile mass, hernia Extremities exam: Present: normal inspection, normal capillary refill. Absent: pedal edema, calf tenderness Back exam: Present: normal inspection. Absent: CVA tenderness (R), CVA tenderness (L) Neurological exam: Present: alert Skin exam: Present: warm, dry, intact, normal color. Absent: rash Course Vital Signs 03/01/20 23:10 Temperature 98.1 F Pulse Rate 64 Respiratory 20 Rate Blood Pressure 123/83 O2 Sat by Pulse 96 Oximetry Medical Decision Making - Lab Data Result diagrams: 03/02/20 00:12 03/02/20 00:12 Lab Results 03/02/20 03/02/20 03/02/20 Range/Units 00:12 00:12 00:12 WBC 9.1 (3.8-10.6) k/uL RBC 5.55 (4.30-5.90) m/uL Hgb 16.4 (13.0-17.5) gm/dL Hct 48.6 (39.0-53.0) % MCV 87.5 (80.0-100.0) fL MCH 29.5 (25.0-35.0) pg MCHC 33.7 (31.0-37.0) g/dL RDW 13.2 (11.5-15.5) % Plt Count 241 (150-450) k/uL Neutrophils % 59 % Lymphocytes % 29 % Monocytes % 8 % Eosinophils % 2 % Basophils % 1 % Neutrophils # 5.3 (1.3-7.7) k/uL Lymphocytes # 2.6 (1.0-4.8) k/uL Monocytes # 0.7 (0-1.0) k/uL Eosinophils # 0.2 (0-0.7) k/uL Basophils # 0.0 (0-0.2) k/uL Sodium 138 (137-145) mmol/L Potassium 4.0 (3.5-5.1) mmol/L Chloride 104 (98-107) mmol/L Carbon Dioxide 25 (22-30) mmol/L Anion Gap 9 mmol/L BUN 21 H (9-20) mg/dL Creatinine 0.96 (0.66-1.25) mg/dL Est GFR (CKD-EPI)AfAm >90 (>60 ml/min/1.73 sqM) Est GFR (CKD-EPI)NonAf >90 (>60 ml/min/1.73 sqM) Glucose 120 H (74-99) mg/dL Calcium 9.6 (8.4-10.2) mg/dL Total Bilirubin 0.7 (0.2-1.3) mg/dL AST 27 (17-59) U/L ALT 44 (4-49) U/L Alkaline Phosphatase 36 L (38-126) U/L Troponin I <0.012 (0.000-0.034) ng/mL Total Protein 7.3 (6.3-8.2) g/dL Albumin 4.7 (3.5-5.0) g/dL Amylase 63 (30-110) U/L Lipase 275 (23-300) U/L Urine Color Urine Appearance (Clear) Urine pH (5.0-8.0) Ur Specific Hunter (1.001-1.035) Urine Protein (Negative) Urine Glucose (UA) (Negative) Urine Ketones (Negative) Urine Blood (Negative) Urine Nitrite (Negative) Urine Bilirubin (Negative) Urine Urobilinogen (<2.0) mg/dL Ur Leukocyte Esterase (Negative) 03/02/20 Range/Units 00:25 WBC (3.8-10.6) k/uL RBC (4.30-5.90) m/uL Hgb (13.0-17.5) gm/dL Hct (39.0-53.0) % MCV (80.0-100.0) fL MCH (25.0-35.0) pg MCHC (31.0-37.0) g/dL RDW (11.5-15.5) % Plt Count (150-450) k/uL Neutrophils % % Lymphocytes % % Monocytes % % Eosinophils % % Basophils % % Neutrophils # (1.3-7.7) k/uL Lymphocytes # (1.0-4.8) k/uL Monocytes # (0-1.0) k/uL Eosinophils # (0-0.7) k/uL Basophils # (0-0.2) k/uL Sodium (137-145) mmol/L Potassium (3.5-5.1) mmol/L Chloride (98-107) mmol/L Carbon Dioxide (22-30) mmol/L Anion Gap mmol/L BUN (9-20) mg/dL Creatinine (0.66-1.25) mg/dL Est GFR (CKD-EPI)AfAm (>60 ml/min/1.73 sqM) Est GFR (CKD-EPI)NonAf (>60 ml/min/1.73 sqM) Glucose (74-99) mg/dL Calcium (8.4-10.2) mg/dL Total Bilirubin (0.2-1.3) mg/dL AST (17-59) U/L ALT (4-49) U/L Alkaline Phosphatase (38-126) U/L Troponin I (0.000-0.034) ng/mL Total Protein (6.3-8.2) g/dL Albumin (3.5-5.0) g/dL Amylase (30-110) U/L Lipase (23-300) U/L Urine Color Yellow Urine Appearance Clear (Clear) Urine pH 7.0 (5.0-8.0) Ur Specific Hunter 1.022 (1.001-1.035) Urine Protein Negative (Negative) Urine Glucose (UA) Negative (Negative) Urine Ketones Negative (Negative) Urine Blood Negative (Negative) Urine Nitrite Negative (Negative) Urine Bilirubin Negative (Negative) Urine Urobilinogen <2.0 (<2.0) mg/dL Ur Leukocyte Esterase Negative (Negative) - EKG Data -: EKG Interpreted by Ut EKG shows normal: sinus rhythm, axis (Normal), intervals (Normal), QRS complexes (Normal), ST-T waves (Normal) Rate: normal (Rate 66 bpm) Interpretation: normal EKG Disposition Clinical Impression: Abdominal pain Disposition: HOME SELF-CARE Condition: Good Instructions (If sedation given, give patient instructions): Abdominal Pain (ED) Prescriptions: Dicyclomine [Bentyl] 20 mg PO QID #15 tablet Dicyclomine [Bentyl] 20 mg PO QID #15 tablet Ondansetron Odt [Zofran ODT] 4 mg PO Q8HR PRN #10 tab PRN Reason: Nausea Ondansetron Odt [Zofran ODT] 4 mg PO Q8HR PRN #10 tab PRN Reason: Nausea Is patient prescribed a controlled substance at d/c from ED?: No Referrals: Son Woody MD [Primary Care Provider] - 1-2 days Puneet Fernández MD [STAFF PHYSICIAN] - 1-2 days
[2020-03-02 00:28] LABS: Basophils % (A) 1 %; Eosinophils # (A) 0.2 k/uL (0-0.7); Eosinophils % (A) 2 %; HCT 48.6 % (39.0-53.0); HGB 16.4 gm/dL (13.0-17.5); Lymphocytes # (A) 2.6 k/uL (1.0-4.8); Lymphocytes % (A) 29 %; MCH 29.5 pg (25.0-35.0); MCHC 33.7 g/dL (31.0-37.0); MCV 87.5 fL (80.0-100.0); Mean Platelet Volume 6.5; Monocytes # (A) 0.7 k/uL (0-1.0); Monocytes % (A) 8 %; Neutrophils # (A) 5.3 k/uL (1.3-7.7); Neutrophils % (A) 59 %; Platelet Count 241 k/uL (150-450); RBC 5.55 m/uL (4.30-5.90); RDW 13.2 % (11.5-15.5); WBC 9.1 k/uL (3.8-10.6)
[2020-03-02 00:39] LABS: ALT 44 U/L (4-49); AST 27 U/L (17-59); African American GFR (CKD) >90 (>60 ml/min/1.73 sqM); Albumin 4.7 g/dL (3.5-5.0); Alkaline Phosphatase 36 U/L (38-126); Amylase 63 U/L (30-110); Anion Gap 9 mmol/L; Blood Urea Nitrogen 21 mg/dL (9-20); Calcium 9.6 mg/dL (8.4-10.2); Carbon Dioxide 25 mmol/L (22-30); Chloride 104 mmol/L (98-107); Glucose 120 mg/dL (74-99); Non-African American GFR(CKD) >90 (>60 ml/min/1.73 sqM); Sodium 138 mmol/L (137-145); Total Bilirubin 0.7 mg/dL (0.2-1.3); Total Protein 7.3 g/dL (6.3-8.2)
[2020-03-02 00:41] LABS: Appearance,Urine Clear (Clear); Bilirubin,Urine Negative (Negative); Blood,Urine Negative (Negative); Color,Urine Yellow; Glucose,Urine (UA) Negative (Negative); Ketones,Urine Negative (Negative); Leukocyte Esterase,Urine Negative (Negative); Nitrite,Urine Negative (Negative); Protein,Urine Negative (Negative); Specific Gravity,Urine 1.022 (1.001-1.035); Urobilinogen,Urine <2.0 mg/dL (<2.0)
--- NOTE | 2020-03-02 01:06 | US ---
EXAMINATION TYPE: US abdomen limited DATE OF EXAM: 03/02/2020 COMPARISON: NONE CLINICAL HISTORY: attention RUQ, abdominal pain. Abdomen pain, bloating, nausea EXAM MEASUREMENTS: Liver Length: 19.1 cm Gallbladder Wall: 0.2 cm CBD: 0.5 cm Right Kidney: 10.0 x 5.7 x 5.7 cm Difficult and limited study due to patient body habitus Pancreas: obscured by overlying midline bowel gas Liver: enlarged, attenuating, heterogeneous Gallbladder: appears wnl Evidence for sonographic Cates's sign: no CBD: visualized portions wnl, limited by overlying bowel gas Right Kidney: wnl IMPRESSION: Liver is echogenic that could relate to some fatty infiltration. No dilated ducts. No gallstones seen . No free fluid.
[2020-03-02] MEDS ORDERED: ONDANSETRON 4 MG/2 ML VIAL IVP STA (01:38)
[2020-03-02] MEDS ORDERED: MORPHINE SULFATE 4 MG/ML SYRINGE IV STA (01:38)
--- NOTE | 2020-03-02 02:22 | CT ---
EXAMINATION TYPE: CT abdomen pelvis wo con DATE OF EXAM: 03/02/2020 COMPARISON: None HISTORY: hernia CT DLP: 1782.4 mGycm Automated exposure control for dose reduction was used. Images were obtained from the diaphragm to the floor the pelvis with no contrast. Lung bases are clear of consolidation. There is no pleural effusion. Heart size is normal. There is n o pericardial effusion. There is some fatty infiltration of the liver. The bile ducts are not dilated . Gallbladder appears normal. Spleen and pancreas appear normal. Stomach has normal size and contour. There is no adrenal mass. Kidneys have normal size and contour. There is 2 mm calculus lateral right kidney. There are 1 cm cortical cyst posterior left kidney. There is no hydronephrosis. Ureters are not dilated. There is no retroperitoneal adenopathy. Bladder distends smoothly. There is no free fluid in the pelvis. There is some prostatic calcification. There is no evidence of pelvic ma ss. Appendix appears normal. There is no mesenteric edema. There is no ascites or free air. There is no b owel obstruction. Small bowel appears normal. The bony pelvis appears intact. Lumbar spine is intact. There are small left-sided inguinal hernia that contains fat. IMPRESSION: Negative CT scan abdomen and pelvis. Normal appendix. Nonobstructing right renal calculus. Mild fatty infiltration of the liver. Small fat-containing left inguinal hernia.
[2020-03-02] MEDS ORDERED: DICYCLOMINE 20 MG TAB PO STA (02:37)
[2020-03-02 03:10] VITALS: BP 106/73; RESP 18; TEMP 97.7
== END 2020-03-02 03:10 | disposition home or self-care (01) ==
LOC: EC 23:06
DX: R10.13 Epigastric pain (principal); R10.811 Right upper quadrant abdominal tenderness; I10 Essential (primary) hypertension; Z79.899 Other long term (current) drug therapy; Z88.0 Allergy status to penicillin; Z88.1 Allergy status to other antibiotic agents; Z88.6 Allergy status to analgesic agent; Z87.442 Personal history of urinary calculi
CPT/HCPCS: 36415; 93005; 80053; 82150; 83690; 84484; 85025; 81003; 76705; 74176; 99284; 96374; 96361 ×2; J1885

== ENCOUNTER → 2020-03-04 | Outpatient (CLI) | payer BC ==
--- NOTE | 2020-03-04 12:59 | FL ---
EXAMINATION TYPE: FL barium swallow w SBFT DATE OF EXAM: 03/04/2020 COMPARISON: None HISTORY: Shortness of breath, gastroesophageal reflux, fullness after small meals belching and bloati ng TECHNIQUE: Esophagram is performed utilizing double air contrast technique. Following additional oral administration of contrast, small bowel follow-through is performed. FINDINGS: Esophagram: The esophagus dilates to normal caliber and has a normal contour to the gastroesophageal junction. Gastroesophageal junction opens to normal caliber. There is complete stripping the esophage al bolus the horizontal drinking position. No reflux was elicited. No hiatal hernia was observed. Small bowel follow-through: Egg Sorter view is felt to be noncontributory Images through the duodenum appear unremarkable. Ligament of Treitz is in a normal position. Ileal an d jejunal fold pattern is normal. No dilated loops of small bowel are evident. No persistent areas of narrowing are identified. Transit time to the colon is approximately 40 minutes. Spot imaging over t he terminal ileum appears within normal limits. IMPRESSION: 1. Normal esophagram. 2. Normal small bowel follow-through.
== END | disposition home or self-care (01) ==
LOC: RADFLMAIN 08:54
PROVIDERS: ATTEND Family Medicine
DX: Z53.9 Procedure and treatment not carried out, unspecified reason (principal)

== ENCOUNTER → 2020-04-03 | Day surgery (SDC) | payer BC ==
[2020-04-01 09:54] VITALS: BMI 40.0
[~2020-04-03] MED LIST: LACTATED RINGERS 1,000 ML IV SCH; LIDOCAINE 1% (10MG/ML) FOR IV START INTRADERMA PRN; MIDAZOLAM 2 MG/2 ML VIAL ONE; PROPOFOL 10 MG/ML 20 ML VIAL IV ONE; fentaNYL (PF) 50 MCG/ML 2 ML AMP ONE
[2020-04-03 10:15] VITALS: RESP 16; TEMP 99.1
--- NOTE | 2020-04-03 11:03 | P.GSHP ---
History of Present Illness H&P Date: 04/03/20 Chief Complaint: GERD 40-year-old male who presents today for EGD. He has had issues with GERD. Past Medical History Past Medical History: GERD/Reflux, Hypertension, Pneumonia Additional Past Medical History / Comment(s): kidney stones, hiatial hernia History of Any Multi-Drug Resistant Organisms: None Reported Past Surgical History: Hernia Repair Additional Past Surgical History / Comment(s): bronchoscopy Past Anesthesia/Blood Transfusion Reactions: Previous Problems w/ Anesthesia, Motion Sickness Additional Past Anesthesia/Blood Transfusion Reaction / Comment(s): "takes long time to shake out of it -blood pressure drops very low during the middle of the night after procedure" suggested by PCP that be monitored possible overnight in observation Smoking Status: Never smoker - Past Family History Mother Family Medical History: No Reported History Medications and Allergies Home Medications Medication Instructions Recorded Confirmed Type Cetirizine HCl [Zyrtec] 10 mg PO DAILY 11/04/19 04/03/20 History Omeprazole/Sodium Bicarbonate 1 cap PO DAILY 11/04/19 04/03/20 History [Omeppi 40 mg-1,100 mg Capsule] atenoloL [Atenolol] 25 mg PO BID 11/04/19 04/03/20 History Metoclopramide [Reglan] 10 mg PO BID 04/01/20 04/03/20 History Allergies Allergy/AdvReac Type Severity Reaction Status Date / Time acetaminophen [From Tylenol] Allergy Rash/Hives Verified 04/01/20 09:40 cephalexin [From Keflex] Allergy Rash/Hives Verified 04/01/20 09:40 Penicillins Allergy Rash/Hives Verified 04/01/20 09:40 Surgical - Exam Vital Signs Temp Pulse Resp BP Pulse Ox 99.1 F 71 16 126/87 94 L 04/03/20 10:14 04/03/20 10:14 04/03/20 10:14 04/03/20 10:14 04/03/20 10:14 - General well developed, well nourished, no distress - Eyes PERRL - ENT normal pinna - Neck no masses - Respiratory normal expansion - Cardiovascular Rhythm: regular - Abdomen Abdomen: soft, non tender Assessment and Plan Assessment: GERD. We'll perform EGD.
--- NOTE | 2020-04-03 11:18 | P.OP ---
Date of Procedure: 04/03/20 Preoperative Diagnosis: GERD Postoperative Diagnosis: Antral gastritis Procedure(s) Performed: EGD Anesthesia: MAC Surgeon: Singh Adair Pathology: other (Antrum, esophagus) Condition: stable Disposition: PACU Description of Procedure: The patient's placed on the endoscopy table in the lateral position. He received IV sedation. The gastroscope placed oropharynx and passed in the esophagus and stomach. Scope was then placed through the pylorus. The first and second portion of the doing the scope summer back and the antrum this. Mildly inflamed. A biopsies performed. Scope was unretroflexed and remainder of the stomach appeared normal. There is no significant hiatal hernia. The GE junction was at 40 cm. The distal esophagus. Normal. A random biopsies performed. The proximal esophagus appeared normal. Scope was withdrawn for patient.
[2020-04-03 11:47] VITALS: BP 120/75; PULSE 71
--- NOTE | 2020-04-03 15:01 | NM ---
Nuclear medicine hepatobiliary scan. HISTORY: Pain. DOSAGE: The patient received 2.75 micrograms of CCK and 5.3 mCi of Technetium 99m Choletec. FINDINGS: There is normal hepatic extraction. However there is a photopenic defect involving the lef t lobe of the liver. The gallbladder is seen by 30 minutes. There is biliary to bowel clearance by 2 0 minutes. Ejection fraction is 38%. IMPRESSION: 1. No evidence of cholecystitis. Ejection fraction is borderline correlate for biliary dyskinesia. 2. There is a photopenic defect involving the left lobe of the liver. Recent CT and MRI have been rev iewed. There appears to be areas of increased density within the left lobe of liver corresponding to the abnormality. MRI is recommended to exclude mass of the left lobe of the liver.
== END ==
LOC: ORWHC2ENDO 09:53
PROVIDERS: ATTEND Surgery
DX: K29.50 Unspecified chronic gastritis without bleeding (principal); K21.9 Gastro-esophageal reflux disease without esophagitis; R93.2 Abnormal findings on diagnostic imaging of liver and biliary tract; I10 Essential (primary) hypertension; R10.9 Unspecified abdominal pain; E66.01 Morbid (severe) obesity due to excess calories; Z68.41 Body mass index [BMI] 40.0-44.9, adult; Z87.01 Personal history of pneumonia (recurrent); Z87.442 Personal history of urinary calculi; Z87.19 Personal history of other diseases of the digestive system; Z98.890 Other specified postprocedural states; Z91.89 Other specified personal risk factors, not elsewhere classified; Z87.898 Personal history of other specified conditions; Z79.899 Other long term (current) drug therapy; Z88.6 Allergy status to analgesic agent; Z88.1 Allergy status to other antibiotic agents; Z88.0 Allergy status to penicillin
CPT/HCPCS: 88305; 78227; 43239; A9537; J2805; J2704

== ENCOUNTER 2020-04-08 08:30 | Inpatient (IN) | payer BC ==
[~2020-04-08 08:30] MED LIST changes: +CLINDAMYCIN 900 MG in DEXTROSE 5% IN WATER 50 ML IVPB ONE; +GENTAMICIN 500 MG in SODIUM CHLORIDE 0.9% 100 ML IVPB ONE; +HEPARIN SODIUM,PORCINE 5,000 UNIT/ML 1 ML VIAL SQ ONE; -LACTATED RINGERS 1,000 ML IV SCH; -LIDOCAINE 1% (10MG/ML) FOR IV START INTRADERMA PRN; -MIDAZOLAM 2 MG/2 ML VIAL ONE; -PROPOFOL 10 MG/ML 20 ML VIAL IV ONE; -fentaNYL (PF) 50 MCG/ML 2 ML AMP ONE
[2020-04-08] MEDS ORDERED: HEPARIN SODIUM,PORCINE 5,000 UNIT/ML 1 ML VIAL ONE (10:52)
[2020-04-08] MEDS ORDERED: ONDANSETRON 4 MG/2 ML VIAL ONE (10:52)
[2020-04-08] MEDS ORDERED: ONDANSETRON 4 MG/2 ML VIAL IVP ONE (10:57)
[2020-04-08] MEDS ORDERED: DEXAMETHASONE SOD PHOSPHATE 10 MG/ML 1 ML VIAL IV ONE (10:57)
[2020-04-08] MEDS ORDERED: LACTATED RINGERS 1,000 ML IV ONE ×3 (10:57→14:42)
[2020-04-08] MEDS ORDERED: FAMOTIDINE 20 MG/2 ML VIAL IVP ONE (10:58)
--- NOTE | 2020-04-08 12:19 | P.GSHP ---
History of Present Illness H&P Date: 04/08/20 Chief Complaint: GERD This a 40-year-old male referred from Dr. Woody.The patient has had long- standing problems with reflux esophagitis. The patient underwent recent EGD is found have evidence of esophagitis. Patient has been well informed on the procedure of laparoscopic Christopher fundoplication. The patient is aware the risk of the conversion to the open procedure, risk of injury to the stomach, liver and spleen. The patient is also a risk of recurrent GERD and dysphagia symptoms. The patient understands there is a postoperative diet of full liquids for 2 weeks after surgery. Past Medical History Past Medical History: GERD/Reflux, Hypertension, Pneumonia Additional Past Medical History / Comment(s): kidney stones, hiatial hernia History of Any Multi-Drug Resistant Organisms: None Reported Past Surgical History: Hernia Repair Additional Past Surgical History / Comment(s): bronchoscopy Past Anesthesia/Blood Transfusion Reactions: Previous Problems w/ Anesthesia, Motion Sickness Additional Past Anesthesia/Blood Transfusion Reaction / Comment(s): "takes long time to shake out of it -blood pressure drops very low during the middle of the night after procedure" suggested by PCP that be monitored possible overnight in observation Smoking Status: Never smoker - Past Family History Mother Family Medical History: No Reported History Medications and Allergies Home Medications Medication Instructions Recorded Confirmed Type Cetirizine HCl [Zyrtec] 10 mg PO DAILY 11/04/19 04/08/20 History Omeprazole/Sodium Bicarbonate 1 cap PO DAILY 11/04/19 04/08/20 History [Omeppi 40 mg-1,100 mg Capsule] atenoloL [Atenolol] 25 mg PO BID 11/04/19 04/08/20 History Metoclopramide [Reglan] 10 mg PO BID 04/01/20 04/08/20 History Allergies Allergy/AdvReac Type Severity Reaction Status Date / Time acetaminophen [From Tylenol] Allergy Rash/Hives Verified 04/08/20 10:47 cephalexin [From Keflex] Allergy Rash/Hives Verified 04/08/20 10:47 Penicillins Allergy Rash/Hives Verified 04/08/20 10:47 Surgical - Exam Vital Signs Temp Pulse Resp BP Pulse Ox 97.8 F 69 16 123/79 98 04/08/20 10:46 04/08/20 10:46 04/08/20 10:46 04/08/20 10:46 04/08/20 10:46 - General well developed, well nourished, no distress - Eyes PERRL - ENT normal pinna - Neck no masses - Respiratory normal expansion - Cardiovascular Rhythm: regular - Abdomen Abdomen: soft, non tender Assessment and Plan Assessment: GERD. We'll perform laparoscopic Christopher fundal plication.
[2020-04-08] MEDS ORDERED: GLYCOPYRROLATE 0.2 MG/ML 2 ML VIAL ONE (12:32)
[2020-04-08] MEDS ORDERED: PROPOFOL 10 MG/ML 20 ML VIAL IV ONE (12:32)
[2020-04-08] MEDS ORDERED: LIDOCAINE 1% INJ 10MG/ML (20 ML MDV) ONE (12:32)
[2020-04-08] MEDS ORDERED: ROCURONIUM 10 MG/ML (5 ML VIAL) IV ONE (12:32)
[2020-04-08] MEDS ORDERED: NEOSTIGMINE 1 MG/ML 10 ML VIAL ONE (12:32)
[2020-04-08] MEDS ORDERED: MIDAZOLAM 2 MG/2 ML VIAL ONE (12:32)
[2020-04-08] MEDS ORDERED: SUCCINYLCHOLINE CHLORIDE VIAL 200 MG/10 ML VIAL IV ONE (12:32)
[2020-04-08] MEDS ORDERED: fentaNYL (PF) 50 MCG/ML 2 ML AMP ONE (12:32)
[2020-04-08] MEDS ORDERED: LIDOCAINE 1%-EPI 1:100,000 20 ML VIAL SQ ONE (13:08)
--- NOTE | 2020-04-08 13:52 | P.OP ---
Date of Procedure: 04/08/20 Preoperative Diagnosis: GERD Postoperative Diagnosis: GERD Procedure(s) Performed: Laparoscopic Christopher fundoplication Anesthesia: YADI Surgeon: Singh Adair Estimated Blood Loss (ml): 5 Pathology: none sent Condition: stable Disposition: PACU Description of Procedure: Marcohe patient was placed on the operating table in the supine position. The patient received general anesthesia. And was placed in dorsal lithotomy position. The patient was prepped and draped in the usual sterile fashion. The skin incision sites were anesthetized with 1% local Xylocaine. The skin was incised in the left periumbilical area and then using a blade less 5 mm trocar under direct visualization panel cavity was entered. After adequate insufflation the laparoscope was then placed into the peritoneal cavity. Next a 5 mm trochars placed in the right epigastric position. Another 5 millimeter trocar the right lateral position. Another 5 millimeter trocar in the left lateral position a 5 mm trocar is placed in the left epigastric position. And then the initial 5 mm trocar was exchanged for a 10 mm trocar. The left lateral lobe liver was retracted. The hernia was seen. The crural defect was then dissected using the Harmonic scissors device. A 360 crural dissection was performed the esophagus stomach was reduced back into the peritoneal Cavity. The crural defect was then closed using 2-0 Ethibond suture. Next the fundus of the stomach was mobilized using the [place] scissors device. and then a 58- [place] bougie dilator was placed oropharynx passed into the esophagus and stomach the fundal plication wrap was then performed by grasping the fundus posteriorly and bringing it around the esophagus and stomach fundoplication was then performed using 2-0 Ethibond suture. Care was taken that the fundal location rested over top of the intra-abdominal esophagus. There was no injury seen to the stomach or esophagus. The dilator was then withdrawn. The abdomen was irrigated there is no bleeding seen. The trochars were then withdrawn and then skin incision sites were closed using 3-0 Monocryl suture Steri-Strips are applied. Patient thought procedure well and sent to recovery room in stable condition.
[2020-04-08] MEDS: HYDROmorphone 1 MG/ML 1 ML SYRINGE IVP ONE ×4 (13:54→14:40)
[2020-04-08] MEDS: HYDROmorphone 1 MG/ML 1 ML SYRINGE IVP PRN ×2 (17:09→21:53)
[2020-04-08] MEDS: METOCLOPRAMIDE 5 MG/ML 2 ML VIAL IVP SCH ×2 (17:11→23:25)
[2020-04-08] MEDS: atenoloL 25 MG TAB PO SCH (19:58)
--- NOTE | 2020-04-08 21:42 | P.CON ---
Consult Note - . Consult date: 04/08/20 Assessment/Plan:: Reason for consult -management of chronic medical conditions Mr. Ricci is a 40-year-old male with a past medical history of GERD, hypertension, nephrolithiasis, hiatal hernia status post repair admitted for laparoscopic Christopher fundoplication. The patient has longstanding problems with reflux esophagitis and takes omeprazole on a regular basis. He underwent EGD and was found to have evidence of esophagitis so he had the procedure done today. Patient takes atenolol 25 mg twice a day, omeprazole/sodium bicarbonate 40/1 10 0 mg 1 capsule every day septic 10 mg every day. The patient just had the procedure done this morning and he complains of soreness in his abdominal area. He complains of diffuse soreness. Denies having any nausea or vomiting. On review of other systems patient denies having any chest pain or palpitations. No cough or difficulty breathing. No dysuria or hematuria. No lower extremity edema. Patient's vitals reviewed heart rate around 70s, respiratory rate 16, blood pressure 120/72, saturating at 97 on 2 L of oxygen. REVIEW OF SYSTEMS: CONSTITUTIONAL: No fever, no malaise, no fatigue. HEENT: No recent visual problems or hearing problems. Denied any sore throat. CARDIOVASCULAR: No chest pain, palpitations, orthopnea or PND PULMONARY: No cough, difficulty in breathing or hemoptysis GASTROINTESTINAL: No diarrhea, no nausea NEUROLOGICAL: No headaches, no weakness, no numbness. HEMATOLOGICAL: Denies any bleeding or petechiae. GENITOURINARY: Denies any burning micturition, frequency, or urgency. MUSCULOSKELETAL/RHEUMATOLOGICAL: No joint swelling or pain ENDOCRINE: Denies any polyuria or polydipsia. The rest of the 13-point review of systems is negative. Past Medical History Past Medical History: GERD/Reflux, Hypertension, Pneumonia Additional Past Medical History / Comment(s): kidney stones, hiatial hernia History of Any Multi-Drug Resistant Organisms: None Reported Past Surgical History: Hernia Repair Additional Past Surgical History / Comment(s): bronchoscopy Past Anesthesia/Blood Transfusion Reactions: Previous Problems w/ Anesthesia, Motion Sickness Additional Past Anesthesia/Blood Transfusion Reaction / Comment(s): "takes long time to shake out of it -blood pressure drops very low during the middle of the night after procedure" suggested by PCP that be monitored possible overnight in observation Past Psychological History: No Psychological Hx Reported Smoking Status: Never smoker Past Alcohol Use History: Rare Past Drug Use History: None Reported - Past Family History Mother Family Medical History: No Reported History Medications and Allergies Home Medications Medication Instructions Recorded Confirmed Type Cetirizine HCl [Zyrtec] 10 mg PO DAILY 11/04/19 04/08/20 History Omeprazole/Sodium Bicarbonate 1 cap PO DAILY 11/04/19 04/08/20 History [Omeppi 40 mg-1,100 mg Capsule] atenoloL [Atenolol] 25 mg PO BID 11/04/19 04/08/20 History Metoclopramide [Reglan] 10 mg PO BID 04/01/20 04/08/20 History Allergies Allergy/AdvReac Type Severity Reaction Status Date / Time acetaminophen [From Tylenol] Allergy Rash/Hives Verified 04/08/20 10:47 cephalexin [From Keflex] Allergy Rash/Hives Verified 04/08/20 10:47 Penicillins Allergy Rash/Hives Verified 04/08/20 10:47 Physical Exam Vitals: Vital Signs Temp Pulse Resp BP Pulse Ox 04/08/20 20:13 98.1 F 76 18 101/63 96 04/08/20 15:05 74 16 116/71 96 04/08/20 14:50 74 16 115/75 96 04/08/20 14:35 70 16 120/72 97 04/08/20 14:20 68 16 127/76 96 04/08/20 14:05 71 16 129/76 94 L 04/08/20 13:50 97.3 F L 74 16 131/91 93 L 04/08/20 13:35 97.7 F 90 17 116/68 91 L 04/08/20 10:46 97.8 F 69 16 123/79 98 Intake and Output 04/08/20 04/08/20 04/08/20 06:59 14:59 22:59 Intake Total 1031 250 Output Total 10 Balance 1021 250 Intake: IV 1031 250 Output: Estimated Blood Loss 10 Other: Weight 133.538 kg 133.538 kg PHYSICAL EXAMINATION: GENERAL: appears to be in no acute distress. HEENT: Pupils are round and equally reacting to light. EOMI. No scleral icterus. No conjunctival pallor. Normocephalic, atraumatic. Thick short neck CARDIOVASCULAR: S1 and S2 heard. No additional sounds. PULMONARY: Bilateral breath sounds are positive, no wheeze or crackles ABDOMEN: Soft, nontender, nondistended, hypoactive bowel sounds. Surgical marking seen. MUSCULOSKELETAL: No joint swelling or deformity. EXTREMITIES: No cyanosis, clubbing, or pedal edema. NEUROLOGICAL: Alert awake oriented 3, Gross neurological examination did not reveal any focal deficits. SKIN: No rash ASSESSMENT Status post Christopher fundoplication done today Chronic GERD/esophagitis Hypertension History of nephrolithiasis History of hiatal hernia repair Obesity with BMI of 39.9 PLAN: Postop patient is doing okay. He is currently on clear liquids. Will restart his home blood pressure medication regimen. On Lovenox for DVT prophylaxis. Further recommendations to follow depending on the progress of the patient. Thank you for involving us in taking care of the patient.
[2020-04-08] MEDS: D5-0.45% NACL WITH KCL 20MEQ/L 1,000 ML IV SCH ×2 (21:53→21:56)
--- NOTE | 2020-04-08 22:31 | P.CONS ---
History of Present Illness - Reason for Consult Consult date: 04/08/20 Medical management Requesting physician: Singh Adair - Chief Complaint Post Niesen fundoplication, chronic reflex esophagitis, hypertension and hi - History of Present Illness 40-year-old male one of Dr. Woody patient with past medical history of chronic esophagitis, recurrent episode of GERD, questionable gallbladder dyskinesia and history of kidney stone along with obstructive sleep apnea who had severe pain and discomfort in the epigastric area and had recurrent reflex esophagitis underwent EGD found to have evidence of severe esophagitis patient also had sli ding hiatal hernia was scheduled for laparoscopy Christopher fundoplication with Dr. Adair, surgery went successfully today with no major complication. Patient still have mild abdominal discomfort distention and gas-like feeling. No other complication his home meds where was started. Pain is under control. Review of Systems CONSTITUTIONAL: Well-developed no acute respiratory distress. EYES: No icterus sclerae, no conjunctivitis. EARS, NOSE, MOUTH, THROAT, and FACE: No sore throat, lymphadenopathy, carotid bruits or deformity. RESPIRATORY: No SOB cough or wheezes. CARDIOVASCULAR: No CP, Palpitation, PND, Orthopnea, or angina. GASTROINTESTINAL: Mild abdominal discomfort with distention and nausea no vomiting. GENITOURINARY: Negative for Hematuria or UTI, no kidney stones. INTEGUMENT/BREAST: Negative for any muscular injury with mild osteoarthritis.. HEMATOLOGIC/LYMPHATIC: Negative for bleed or purpura. MUSCULOSKELTAL: Negative for Myalgia or arthralgia. NEURLOGICAL: No LOC, Sz or syncope, blurred vision dizziness or abnormality.. BEHAVIORAL/PSYCH: Negative. ENDOCRINE: Negative. Past Medical History Past Medical History: GERD/Reflux, Hypertension, Pneumonia Additional Past Medical History / Comment(s): kidney stones, hiatial hernia History of Any Multi-Drug Resistant Organisms: None Reported Past Surgical History: Hernia Repair Additional Past Surgical History / Comment(s): bronchoscopy Past Anesthesia/Blood Transfusion Reactions: Previous Problems w/ Anesthesia, Motion Sickness Additional Past Anesthesia/Blood Transfusion Reaction / Comm: "takes long time t o shake out of it -blood pressure drops very low during the middle of the night after procedure" suggested by PCP that be monitored possible overnight in observation Past Psychological History: No Psychological Hx Reported Smoking Status: Never smoker Past Alcohol Use History: Rare Past Drug Use History: None Reported - Past Family History Mother Family Medical History: No Reported History Medications and Allergies Home Medications Medication Instructions Recorded Confirmed Type Cetirizine HCl [Zyrtec] 10 mg PO DAILY 11/04/19 04/08/20 History Omeprazole/Sodium Bicarbonate 1 cap PO DAILY 11/04/19 04/08/20 History [Omeppi 40 mg-1,100 mg Capsule] atenoloL [Atenolol] 25 mg PO BID 11/04/19 04/08/20 History Metoclopramide [Reglan] 10 mg PO BID 04/01/20 04/08/20 History Allergies Allergy/AdvReac Type Severity Reaction Status Date / Time acetaminophen [From Tylenol] Allergy Rash/Hives Verified 04/08/20 10:47 cephalexin [From Keflex] Allergy Rash/Hives Verified 04/08/20 10:47 Penicillins Allergy Rash/Hives Verified 04/08/20 10:47 Physical Exam Vitals: Vital Signs Temp Pulse Resp BP Pulse Ox 04/08/20 20:13 98.1 F 76 18 101/63 96 04/08/20 15:05 74 16 116/71 96 04/08/20 14:50 74 16 115/75 96 04/08/20 14:35 70 16 120/72 97 04/08/20 14:20 68 16 127/76 96 04/08/20 14:05 71 16 129/76 94 L 04/08/20 13:50 97.3 F L 74 16 131/91 93 L 04/08/20 13:35 97.7 F 90 17 116/68 91 L 04/08/20 10:46 97.8 F 69 16 123/79 98 Intake and Output 04/08/20 04/08/20 04/08/20 06:59 14:59 22:59 Intake Total 1031 250 Output Total 10 Balance 1021 250 Intake: IV 1031 250 Output: Estimated Blood Loss 10 Other: Weight 133.538 kg 133.538 kg General Appearance: Alert, cooperative, no distress, appears stated age. Neck HEENT: Supple, no lymphadenopathy, no thyroid enlargement, no carotid bruits. Lungs: Decreased breaths lumbar acute fine rhonchi no crackles or wheezes. Chest Wall: Decrease expansion with deep inspiration no tenderness and no deformity was found on exam, no costochondral pain or discomfort. Heart: Regular rate and rhythm, S1, S2 normal, no murmur, rub or gallop. Back: Symmetric, no curvature, ROM normal, no CVA tenderness. Abdomen: Soft with mild distention there is 7 small scar tissue from laparoscopic surgery with no sign of bleeding or hematoma. Extremities: Extremities normal, atraumatic, no cyanosis or edema. Pulses: 2+ and symmetric. Skin: Skin color, texture, tugor normal, no rashes or lesions. Neurologic: Alert oriented x3 cranial nerves II through XII intact, no motor deficit, no abnormal balance or gait. Assessment and Plan Assessment: 1 post Niesen fundoplication: Doing well post surgery resume home meds, watch patient hemodynamic status, control pain, GI and DVT prophylaxis protocol. 2 obstructive sleep apnea: Patient is using his CPAP regularly. 3 history of hypertension: Has been doing well on atenolol 25 mg twice a day. 4 chronic ALLERGY: Has been on Zyrtec 10 mg daily. 5 history of kidney stone with no recurrent episode doing well no need for any pain management or Flomax currently. 6 chronic gallbladder dyskinesia: Does not need surgery at this point if there is no symptoms. 7 recent history of severe pneumonitis: Post bronchoscopy patient has done very well since with no sign and symptoms of wheezes tightness or reactive airway. Continue incentive spirometry [id number] for the next 2 weeks post surgery. 8 GI prophylaxis: Patient will be on pantoprazole IV. 9 DVT prophylaxis: Remain on Lovenox 40 mg subcutaneous daily. CODE STATUS: Full code. Dr. Adair thank you very much for the consult if I can be any further help to please let me know
[2020-04-09] MEDS: HYDROmorphone 1 MG/ML 1 ML SYRINGE IVP PRN ×2 (04:32→09:50)
[2020-04-09] MEDS: METOCLOPRAMIDE 5 MG/ML 2 ML VIAL IVP SCH ×4 (05:59→23:03)
[2020-04-09] MEDS: D5-0.45% NACL WITH KCL 20MEQ/L 1,000 ML IV SCH ×3 (07:33→23:03)
[2020-04-09] MEDS: ENOXAPARIN 40 MG/0.4 ML SYRINGE SQ SCH (09:37)
[2020-04-09] MEDS: SODIUM BICARBONATE TAB 650 MG TAB PO SCH (09:39)
[2020-04-09] MEDS: PANTOPRAZOLE 40 MG TABLET PO SCH (09:39)
[2020-04-09] MEDS: atenoloL 25 MG TAB PO SCH ×2 (09:40→20:30)
[2020-04-09] MEDS: LORATADINE 10 MG TAB PO SCH (09:40)
[2020-04-09 11:11] VITALS: BMI 39.9
[2020-04-09] MEDS: IBUPROFEN 400 MG TAB PO PRN ×2 (13:12→19:12)
[2020-04-09] MEDS: traMADol 50 MG TAB PO SCH ×3 (13:34→23:01)
--- NOTE | 2020-04-09 13:54 | P.PN ---
Subjective Progress Note Date: 04/09/20 40-year-old male one of Dr. Woody patient with past medical history of chronic esophagitis, recurrent episode of GERD, questionable gallbladder dyskinesia and history of kidney stone along with obstructive sleep apnea who had severe pain and discomfort in the epigastric area and had recurrent reflex esophagitis underwent EGD found to have evidence of severe esophagitis patient also had sliding hiatal hernia was scheduled for laparoscopy Christopher fundoplication with Dr. Adair, surgery went successfully today with no major complication. Patient still have mild abdominal discomfort distention and gas-like feeling. No other complication his home meds where was started. Pain is under control. 04/09: Patient is seen today in recheck. He has had ongoing problems with pain issues during the night. Patient is unable to take acetaminophen due to ALLERGY. We will add in tramadol. He underwent upper GI evaluation this morning report is pending. He is currently on a Niesen clear liquid diet and tolerating. Patient has been afebrile, heart rate 77, blood pressure 103/65, pulse ox 97% on 2 L nasal cannula. Anticipate possible discharge in the next 24 hours. Review of Systems CONSTITUTIONAL: Well-developed no acute respiratory distress. EYES: No icterus sclerae, no conjunctivitis. EARS, NOSE, MOUTH, THROAT, and FACE: No sore throat, lymphadenopathy, carotid bruits or deformity. RESPIRATORY: No SOB cough or wheezes. CARDIOVASCULAR: No CP, Palpitation, PND, Orthopnea, or angina. GASTROINTESTINAL: Reports abdominal pain with distention and nausea no vomiting. GENITOURINARY: Negative for Hematuria or UTI, no kidney stones. INTEGUMENT/BREAST: Negative for any muscular injury with mild osteoarthritis.. HEMATOLOGIC/LYMPHATIC: Negative for bleed or purpura. MUSCULOSKELTAL: Negative for Myalgia or arthralgia. NEURLOGICAL: No LOC, Sz or syncope, blurred vision dizziness or abnormality.. BEHAVIORAL/PSYCH: Negative. ENDOCRINE: Negative. Physical examination General Appearance: Alert, cooperative, no distress, appears stated age. Patient is resting in bed appears to be fairly comfortable at rest. Neck HEENT: Supple, no lymphadenopathy, no thyroid enlargement, no carotid bruits. Lungs: Decreased breaths lumbar acute fine rhonchi no crackles or wheezes. Chest Wall: Decrease expansion with deep inspiration no tenderness and no deformity was found on exam, no costochondral pain or discomfort. Heart: Regular rate and rhythm, S1, S2 normal, no murmur, rub or gallop. Back: Symmetric, no curvature, ROM normal, no CVA tenderness. Abdomen: Soft with mild distention there is 7 small scar tissue from laparoscopic surgery with no sign of bleeding or hematoma. Extremities: Extremities normal, atraumatic, no cyanosis or edema. Pulses: 2+ and symmetric. Skin: Skin color, texture, tugor normal, no rashes or lesions. Neurologic: Alert oriented x3 cranial nerves II through XII intact, no motor deficit, no abnormal balance or gait. Assessment and Plan 1 post Niesen fundoplication, postop day #1: Doing well post surgery resume home meds, watch patient hemodynamic status, control pain, GI and DVT prophylaxis protocol. Tramadol and if her pain control. 2 obstructive sleep apnea: Patient is using his CPAP regularly. 3 history of hypertension: Has been doing well on atenolol 25 mg twice a day. 4 chronic ALLERGY: Has been on Zyrtec 10 mg daily. 5 history of kidney stone with no recurrent episode doing well no need for any pain management or Flomax currently. 6 chronic gallbladder dyskinesia: Does not need surgery at this point if there is no symptoms. 7 recent history of severe pneumonitis: Post bronchoscopy patient has done very well since with no sign and symptoms of wheezes tightness or reactive airway. Continue incentive spirometry [id number] for the next 2 weeks post surgery. 8 GI prophylaxis: Patient will be on pantoprazole IV. 9 DVT prophylaxis: Remain on Lovenox 40 mg subcutaneous daily. CODE STATUS: Full code. Dr. Adair thank you very much for the consult if I can be any further help to please let me know Discharge plan: Home Impression and plan of care have been directed as dictated by the signing physician. Purnima Enrique nurse practitioner acting as scribe for signing physician. Objective - Vital Signs Vital signs: Vital Signs Temp 98.0 F 04/09/20 07:00 Pulse 77 04/09/20 07:00 Resp 16 04/09/20 07:00 BP 103/65 04/09/20 07:00 Pulse Ox 97 04/09/20 07:00 Intake & Output 04/08/20 04/09/20 04/09/20 18:59 06:59 18:59 Intake Total 1281 1450 Output Total 10 1300 Balance 1271 150 Weight 133.538 kg Intake: IV 1281 750 0.9% Normal Saline 750 Intake, IV Titration 700 Amount D5-0.45% NaCl with KCl 700 20Meq/l 1,000 ml @ 125 mls/hr IV .Q8H [facility] Rx#: [id number] Output: Urine 1300 Estimated Blood Loss 10 Other: Voiding Method Urinal # Voids 1
--- NOTE | 2020-04-09 14:56 | P.PN ---
Subjective Progress Note Date: 04/09/20 CHIEF COMPLAINT: GERD HISTORY OF PRESENT ILLNESS: Patient is postop day #1 status post Christopher fundoplication. He is complaining of upper abdominal pain today. He denies any nausea vomiting. He reports having difficulty fully urinating. Bladder scan completed showing no evidence of urinary retention. He does have a Tylenol ALLERGY tramadol was ordered by medicine. Also will add Motrin as needed. He's currently on a bariatric clear diet and tolerating it. Esophagram results are pending. Patient is afebrile. PHYSICAL EXAM: VITAL SIGNS: Reviewed. GENERAL: Well-developed in no acute distress. HEENT: No sclera icterus. Extraocular movements grossly intact. Moist buccal mucosa. Head is atraumatic, normocephalic. ABDOMEN: Soft. Mildly distended. Mild diffuse tenderness with palpation. Incision sites clean dry and intact. NEUROLOGIC: Alert and oriented. Cranial nerves II through XII grossly intact. ASSESSMENT: 1. GERD: Status post laparoscopic Christopher fundoplication. Postop day #1 PLAN: -Advised Motrin to help with pain control -Esophagram results pending -Encourage patient to ambulate -Encourage patient to use incentive spirometer -Anticipate discharge home tomorrow Physician Agronomy Technician note has been reviewed by physician. Signing provider agrees with the documented findings, assessment, and plan of care. Objective - Vital Signs Vital signs: Vital Signs Temp 98.0 F 04/09/20 07:00 Pulse 77 04/09/20 07:00 Resp 16 04/09/20 09:08 BP 103/65 04/09/20 07:00 Pulse Ox 97 04/09/20 07:00 Intake & Output 04/08/20 04/09/20 04/09/20 18:59 06:59 18:59 Intake Total 1281 1450 200 Output Total 10 1300 Balance 1271 150 200 Weight 133.538 kg 133.538 kg Intake: IV 1281 750 0.9% Normal Saline 750 Intake, IV Titration 700 Amount D5-0.45% NaCl with KCl 700 20Meq/l 1,000 ml @ 125 mls/hr IV .Q8H [facility] Rx#: [id number] Oral 200 Output: Urine 1300 Estimated Blood Loss 10 Other: Voiding Method Urinal Urinal # Voids 1 2
--- NOTE | 2020-04-09 15:15 | FL ---
SINGLE CONTRAST ESOPHAGRAM: CLINICAL HISTORY: 40-year-old male rule out leak/obstruction status post Christopher fundoplication. TECHNIQUE: Single contrast exam performed with 40 ml Isovue-370 contrast. Total fluoroscopy time: Total images: 17 FINDINGS: The patient swallowed oral contrast without difficulty or delay. Esophageal peristalsis and motility are within normal limits. There is good flow of contrast along the GE junction. No evidence of contr ast extravasation to suggest leak. Trace postsurgical free air below the right hemidiaphragm. IMPRESSION: No evidence of leak or significant obstruction status post Christopher fundoplication. Trace post surgical free air on the right.
[2020-04-10] MEDS: HYDROmorphone 1 MG/ML 1 ML SYRINGE IVP PRN (00:38)
[2020-04-10] MEDS: METOCLOPRAMIDE 5 MG/ML 2 ML VIAL IVP SCH (05:30)
[2020-04-10] MEDS: D5-0.45% NACL WITH KCL 20MEQ/L 1,000 ML IV SCH (06:50)
[2020-04-10] MEDS: SODIUM BICARBONATE TAB 650 MG TAB PO SCH (07:03)
[2020-04-10] MEDS: PANTOPRAZOLE 40 MG TABLET PO SCH (07:03)
[2020-04-10] MEDS: IBUPROFEN 400 MG TAB PO PRN (07:04)
[2020-04-10 07:40] VITALS: BP 115/76; PULSE 66; RESP 17; TEMP 97.9
[2020-04-10] MEDS: ENOXAPARIN 40 MG/0.4 ML SYRINGE SQ SCH (08:17)
[2020-04-10] MEDS: LORATADINE 10 MG TAB PO SCH (08:17)
[2020-04-10] MEDS: atenoloL 25 MG TAB PO SCH (08:17)
[2020-04-10] MEDS: traMADol 50 MG TAB PO SCH (08:17)
--- NOTE | 2020-04-10 10:08 | P.DS ---
Providers Date of admission: 04/08/20 10:29 Expected date of discharge: 04/10/20 Attending physician: Singh Adair Consults: 04/08/20 13:59 Consult Physician Routine Consulting Provider: Gopi Kimbrough Consult Reason/Comments: Medical management Do you want consulting provider notified?: Yes Primary care physician: Son Woody Hospital Course: Discharge diagnosis 1. GERD: Status post laparoscopic Christopher fundoplication. Hospital course This is a 40-year-old male with history of GERD who underwent laparoscopic Christopher fundoplication with Dr. Adair. He tolerated surgery well with no complications. He's been up and ambulating. He is passing gas. He is tolerating diet. He is afebrile. Esophagram shows no evidence of leak or significant obstruction status post Christopher fundoplication. Patient is surgically stable for discharge. He will be on Motrin for pain control. Physician Nursing Home Assistant Administrator note has been reviewed by physician. Signing provider agrees with the documented findings, assessment, and plan of care. Patient Condition at Discharge: Stable Plan - Discharge Summary Discharge Rx Participant: Yes New Discharge Prescriptions: New Ibuprofen [Motrin] 800 mg PO Q8H PRN #30 tab PRN Reason: Pain Continue atenoloL [Atenolol] 25 mg PO BID Cetirizine HCl [Zyrtec] 10 mg PO DAILY Omeprazole/Sodium Bicarbonate [Omeppi 40 mg-1,100 mg Capsule] 1 cap PO DAILY Metoclopramide [Reglan] 10 mg PO BID Discharge Medication List Cetirizine HCl [Zyrtec] 10 mg PO DAILY 11/04/19 [History] Omeprazole/Sodium Bicarbonate [Omeppi 40 mg-1,100 mg Capsule] 1 cap PO DAILY 11/04/19 [History] atenoloL [Atenolol] 25 mg PO BID 11/04/19 [History] Metoclopramide [Reglan] 10 mg PO BID 04/01/20 [History] Ibuprofen [Motrin] 800 mg PO Q8H PRN #30 tab 04/10/20 [Rx] Follow up Appointment(s)/Referral(s): Singh Adair MD [STAFF PHYSICIAN] - 2 Weeks Patient Instructions/Handouts: *Surgery [facility] - ([facility]) Lap Christopher Fundiplication Post-Op Instructions, Pain Management After Surgery (DC), Nutrition after Bariatric Surgery (DC) Discharge Disposition: HOME SELF-CARE
--- NOTE | 2020-04-10 13:26 | P.PN ---
Subjective Progress Note Date: 04/10/20 40-year-old male one of Dr. Woody patient with past medical history of chronic esophagitis, recurrent episode of GERD, questionable gallbladder dyskinesia and history of kidney stone along with obstructive sleep apnea who had severe pain and discomfort in the epigastric area and had recurrent reflex esophagitis underwent EGD found to have evidence of severe esophagitis patient also had sliding hiatal hernia was scheduled for laparoscopy Christopher fundoplication with Dr. Adair, surgery went successfully today with no major complication. Patient still have mild abdominal discomfort distention and gas-like feeling. No other complication his home meds where was started. Pain is under control. 04/09: Patient is seen today in recheck. He has had ongoing problems with pain issues during the night. Patient is unable to take acetaminophen due to ALLERGY. We will add in tramadol. He underwent upper GI evaluation this morning report is pending. He is currently on a Niesen clear liquid diet and tolerating. Patient has been afebrile, heart rate 77, blood pressure 103/65, pulse ox 97% on 2 L nasal cannula. Anticipate possible discharge in the next 24 hours. 04/10: Patient states that his pain is a little bit better but is complaining of feeling sore everywhere like he was hit by a truck. He states he is passing gas but has not had a bowel movement yet. He states he walked several times yesterday around the floor and is done the same this morning. He did use tramadol yesterday and not sure if this was helping. He states he is using incentive spirometry regularly. He is currently on a clear liquid Niesen diet and tolerating. Patient is been afebrile, heart rate 66, blood pressure 115/76, pulse ox 93% on room air. Anticipate discharge home today. Review of Systems CONSTITUTIONAL: Well-developed no acute respiratory distress. Denies fever, denies chills. Complains of generalized body aches. EYES: No icterus sclerae, no conjunctivitis. EARS, NOSE, MOUTH, THROAT, and FACE: No sore throat, lymphadenopathy, carotid bruits or deformity. RESPIRATORY: No SOB cough or wheezes. CARDIOVASCULAR: No CP, Palpitation, PND, Orthopnea, or angina. GASTROINTESTINAL: Reports abdominal pain with distention and nausea no vomiting. GENITOURINARY: Negative for Hematuria or UTI, no kidney stones. INTEGUMENT/BREAST: Negative for any muscular injury with mild osteoarthritis.. HEMATOLOGIC/LYMPHATIC: Negative for bleed or purpura. MUSCULOSKELTAL: Negative for Myalgia or arthralgia. NEURLOGICAL: No LOC, Sz or syncope, blurred vision dizziness or abnormality.. BEHAVIORAL/PSYCH: Negative. ENDOCRINE: Negative. Physical examination General Appearance: Alert, cooperative, no distress, appears stated age. Patient is resting in bed appears to be comfortable. Neck HEENT: Supple, no lymphadenopathy, no thyroid enlargement, no carotid bruits. Lungs: Decreased breaths lumbar acute fine rhonchi no crackles or wheezes. Chest Wall: Decrease expansion with deep inspiration no tenderness and no deform ity was found on exam, no costochondral pain or discomfort. Heart: Regular rate and rhythm, S1, S2 normal, no murmur, rub or gallop. Back: Symmetric, no curvature, ROM normal, no CVA tenderness. Abdomen: Soft with mild distention there is 7 small scar tissue from laparoscopic surgery with no sign of bleeding or hematoma. Extremities: Extremities normal, atraumatic, no cyanosis or edema. Pulses: 2+ and symmetric. Skin: Skin color, texture, tugor normal, no rashes or lesions. Neurologic: Alert oriented x3 cranial nerves II through XII intact, no motor deficit, no abnormal balance or gait. Assessment and Plan 1 post Niesen fundoplication, postop day #2: Doing well post surgery resume home meds, watch patient hemodynamic status, control pain, GI and DVT prophylaxis protocol. Tramadol for pain control. 2 obstructive sleep apnea: Patient is using his CPAP regularly. 3 history of hypertension: Has been doing well on atenolol 25 mg twice a day. 4 chronic ALLERGY: Has been on Zyrtec 10 mg daily. 5 history of kidney stone with no recurrent episode doing well no need for any pain management or Flomax currently. 6 chronic gallbladder dyskinesia: Does not need surgery at this point if there is no symptoms. 7 recent history of severe pneumonitis: Post bronchoscopy patient has done very well since with no sign and symptoms of wheezes tightness or reactive airway. Continue incentive spirometry [id number] for the next 2 weeks post surgery. 8 GI prophylaxis: Patient will be on pantoprazole IV. 9 DVT prophylaxis: Remain on Lovenox 40 mg subcutaneous daily. CODE STATUS: Full code. Discharge plan: Home today Impression and plan of care have been directed as dictated by the signing physician. Purnima Enrique nurse practitioner acting as scribe for signing physician. Objective - Vital Signs Vital signs: Vital Signs Temp 97.9 F 04/10/20 07:00 Pulse 66 04/10/20 07:00 Resp 17 04/10/20 07:00 BP 115/76 04/10/20 07:00 Pulse Ox 93 L 04/10/20 07:00 Intake & Output 04/09/20 04/10/20 04/10/20 18:59 06:59 18:59 Intake Total 380 Output Total 0 0 Balance 380 0 0 Weight 133.538 kg Intake: Oral 380 Output: Stool 0 0 Other: Voiding Method Urinal Urinal # Voids 2 2
== END 2020-04-10 11:18 | disposition home or self-care (01) | DRG 328 ==
LOC: 2ORMAIN 10:29 → 4SSUR 14:17
PROVIDERS: ADMIT Surgery; ATTEND Surgery
PROC: 0DV44ZZ Restriction of Esophagogastric Junction, Percutaneous Endoscopic Approach (ICD-10-PCS; principal; 2020-04-08 08:30)
DX: K21.0 Gastro-esophageal reflux disease with esophagitis (principal); K82.8 Other specified diseases of gallbladder; G47.33 Obstructive sleep apnea (adult) (pediatric); E66.9 Obesity, unspecified; I10 Essential (primary) hypertension; Z68.39 Body mass index [BMI] 39.0-39.9, adult; Z79.899 Other long term (current) drug therapy; Z87.442 Personal history of urinary calculi; Z98.890 Other specified postprocedural states; Z87.01 Personal history of pneumonia (recurrent); Z88.6 Allergy status to analgesic agent; Z88.1 Allergy status to other antibiotic agents; Z88.0 Allergy status to penicillin
CPT/HCPCS: 74210

== ENCOUNTER 2020-07-14 13:41 | Emergency (ER) | payer BC ==
[2020-07-14 13:52] VITALS: TEMP 98.9
[2020-07-14] MEDS ORDERED: SODIUM CHLORIDE 0.9% 1,000 ML IV STA (14:19)
--- NOTE | 2020-07-14 14:24 | ED ---
General Adult HPI - General Chief complaint: Dizziness Stated complaint: Dizziness Time Seen by Provider: 07/14/20 14:01 Source: patient, RN notes reviewed Mode of arrival: wheelchair Limitations: no limitations - History of Present Illness Initial comments: patient is a pleasant 40-year-old male presenting to the emergency Department with complaints of lightheadedness. Onset of symptoms was around a week ago. Patient states he is dizzy and feels more lightheaded. At times feels her may be slight spinning type sensation. Patient has had some occasional moderate headaches that have been frontal. No weakness or confusion. Patient has haddiarrhea several times with the past few days, none today. Occasional abdominal cramping. No chest pain. No dyspnea. No rhinorrhea. No cough. No fevers. - Related Data Home Medications Medication Instructions Recorded Confirmed Cetirizine HCl [Zyrtec] 10 mg PO DAILY 11/04/19 07/14/20 atenoloL [Atenolol] 25 mg PO BID 11/04/19 07/14/20 ALPRAZolam [Xanax] 0.5 mg PO DAILY PRN 07/14/20 07/14/20 Fluticasone Nasal [place] [Flonase 1 spray EA NOSTRIL DAILY PRN 07/14/20 07/14/20 Nasal [place]] Allergies Allergy/AdvReac Type Severity Reaction Status Date / Time acetaminophen [From Tylenol] Allergy Rash/Hives Verified 07/14/20 14:40 cephalexin [From Keflex] Allergy Rash/Hives Verified 07/14/20 14:40 Penicillins Allergy Rash/Hives Verified 07/14/20 14:40 Review of Systems ROS Statement: Those systems with pertinent positive or pertinent negative responses have been documented in the HPI. ROS Other: All systems not noted in ROS Statement are negative. Constitutional: Denies: fever, chills Eyes: Denies: eye pain ENT: Denies: ear pain Respiratory: Denies: cough, dyspnea Cardiovascular: Denies: chest pain Endocrine: Reports: fatigue Gastrointestinal: Reports: as per HPI, nausea, diarrhea. Denies: vomiting Genitourinary: Denies: dysuria Musculoskeletal: Denies: back pain Skin: Denies: rash Neurological: Denies: weakness Past Medical History Past Medical History: GERD/Reflux, Hypertension, Pneumonia Additional Past Medical History / Comment(s): kidney stones, hiatial hernia History of Any Multi-Drug Resistant Organisms: None Reported Past Surgical History: Hernia Repair Additional Past Surgical History / Comment(s): bronchoscopy Past Anesthesia/Blood Transfusion Reactions: Previous Problems w/ Anesthesia, Motion Sickness Additional Past Anesthesia/Blood Transfusion Reaction / Comment(s): "takes long time to shake out of it -blood pressure drops very low during the middle of the night after procedure" suggested by PCP that be monitored possible overnight in observation Past Psychological History: No Psychological Hx Reported Smoking Status: Never smoker Past Alcohol Use History: Rare Past Drug Use History: None Reported - Past Family History Mother Family Medical History: No Reported History General Exam Limitations: no limitations General appearance: alert, in no apparent distress Head exam: Present: normocephalic Eye exam: Present: normal appearance, PERRL, EOMI. Absent: nystagmus ENT exam: Present: normal oropharynx Neck exam: Present: normal inspection Respiratory exam: Present: normal lung sounds bilaterally Cardiovascular Exam: Present: regular rate, normal rhythm GI/Abdominal exam: Present: soft. Absent: tenderness Extremities exam: Present: normal inspection Neurological exam: Present: alert, oriented X3, CN II-XII intact. Absent: motor sensory deficit Expanded Neurological exam: Present: protecting the airway Speech: Present: fluid speech Cranial nerves: EOM's Intact: Normal, Facial Sensation: Normal Motor strength exam: RUE: 5, LUE: 5, RLE: 5, LLE: 5 Eye Response: (4) open spontaneously Motor Response: (6) obeys commands Verbal Response: (5) oriented Psychiatric exam: Present: normal affect, normal mood Skin exam: Present: normal color Course Vital Signs 07/14/20 13:47 Temperature 98.9 F Pulse Rate 65 Respiratory 16 Rate Blood Pressure 125/83 O2 Sat by Pulse 96 Oximetry EKG Findings - EKG Comments: EKG Findings:: normal sinus rhythm 64. TX 164. QRS 78. QT 366. QTc 377. Normal axis. Normal QRS. No acute ST change. Medical Decision Making - Medical Decision Making Patient reevaluated and feeling better following fluids. Patient updated on results and is comfortable discharge home. Patient is made aware of recommendation for brain MRIon follow-up with his primary care physician. Patient is agreeable to trying Antivert at this time. - Lab Data Result diagrams: 07/14/20 14:21 07/14/20 14:21 Lab Results 07/14/20 07/14/20 Range/Units 14:21 14:21 WBC 10.7 H (3.8-10.6) k/uL RBC 5.74 (4.30-5.90) m/uL Hgb 17.4 (13.0-17.5) gm/dL Hct 50.6 (39.0-53.0) % MCV 88.2 (80.0-100.0) fL MCH 30.3 (25.0-35.0) pg MCHC 34.4 (31.0-37.0) g/dL RDW 13.9 (11.5-15.5) % Plt Count 265 (150-450) k/uL MPV 6.6 Neutrophils % 70 % Lymphocytes % 20 % Monocytes % 7 % Eosinophils % 1 % Basophils % 1 % Neutrophils # 7.5 (1.3-7.7) k/uL Lymphocytes # 2.1 (1.0-4.8) k/uL Monocytes # 0.8 (0-1.0) k/uL Eosinophils # 0.1 (0-0.7) k/uL Basophils # 0.1 (0-0.2) k/uL Sodium 138 (137-145) mmol/L Potassium 4.8 (3.5-5.1) mmol/L Chloride 104 (98-107) mmol/L Carbon Dioxide 26 (22-30) mmol/L Anion Gap 8 mmol/L BUN 19 (9-20) mg/dL Creatinine 0.92 (0.66-1.25) mg/dL Est GFR (CKD-EPI)AfAm >90 (>60 ml/min/1.73 sqM) Est GFR (CKD-EPI)NonAf >90 (>60 ml/min/1.73 sqM) Glucose 102 H (74-99) mg/dL Calcium 10.0 (8.4-10.2) mg/dL Total Bilirubin 1.7 H (0.2-1.3) mg/dL AST 38 (17-59) U/L ALT 45 (4-49) U/L Alkaline Phosphatase 35 L (38-126) U/L Total Protein 8.4 H (6.3-8.2) g/dL Albumin 4.9 (3.5-5.0) g/dL - Radiology Data Radiology results: report reviewed (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 CTA reveals no acute abnormality.) Disposition Clinical Impression: Lightheadedness Disposition: HOME SELF-CARE Condition: Stable Instructions (If sedation given, give patient instructions): Dizziness (ED) Additional Instructions: [id number] Antivert as needed. Please follow-up with primary care physician in the next day or 2 for recheck. Consider follow-up MRI of the brain. Return for weakness, confusion, worsening or change in symptoms or other concerns.Will results will likely be available in one to 2 days. Please self quarantine until results are reported as negative. Is patient prescribed a controlled substance at d/c from ED?: No Referrals: Son Woody MD [Primary Care Provider] - 1-2 days Time of Disposition: 16:50
[2020-07-14 14:50] LABS: Basophils # (A) 0.1 k/uL (0-0.2); Basophils % (A) 1 %; Eosinophils # (A) 0.1 k/uL (0-0.7); Eosinophils % (A) 1 %; HCT 50.6 % (39.0-53.0); HGB 17.4 gm/dL (13.0-17.5); Lymphocytes # (A) 2.1 k/uL (1.0-4.8); Lymphocytes % (A) 20 %; MCH 30.3 pg (25.0-35.0); MCHC 34.4 g/dL (31.0-37.0); MCV 88.2 fL (80.0-100.0); Mean Platelet Volume 6.6; Monocytes # (A) 0.8 k/uL (0-1.0); Monocytes % (A) 7 %; Neutrophils # (A) 7.5 k/uL (1.3-7.7); Neutrophils % (A) 70 %; Platelet Count 265 k/uL (150-450); RBC 5.74 m/uL (4.30-5.90); RDW 13.9 % (11.5-15.5); WBC 10.7 k/uL (3.8-10.6)
[2020-07-14 14:57] LABS: ALT 45 U/L (4-49); AST 38 U/L (17-59); African American GFR (CKD) >90 (>60 ml/min/1.73 sqM); Albumin 4.9 g/dL (3.5-5.0); Alkaline Phosphatase 35 U/L (38-126); Anion Gap 8 mmol/L; Blood Urea Nitrogen 19 mg/dL (9-20); Carbon Dioxide 26 mmol/L (22-30); Chloride 104 mmol/L (98-107); Glucose 102 mg/dL (74-99); Non-African American GFR(CKD) >90 (>60 ml/min/1.73 sqM); Potassium 4.8 mmol/L (3.5-5.1); Sodium 138 mmol/L (137-145); Total Bilirubin 1.7 mg/dL (0.2-1.3); Total Protein 8.4 g/dL (6.3-8.2)
--- NOTE | 2020-07-14 15:16 | CT ---
EXAMINATION TYPE: CT brain wo con DATE OF EXAM: 07/14/2020 COMPARISON: None HISTORY: Dizziness and weakness. CT DLP: 1080.4 mGycm. Automated Exposure Control for Dose Reduction was Utilized. TECHNIQUE: CT scan of the head is performed without contrast. FINDINGS: There is no acute intracranial hemorrhage, mass effect, or midline shift identified. The ventricles and sulci are within normal limits in size. The globes are intact and the visualized sin uses are clear. Agenesis of the corpus callosum. There is a hyperdense right MCA noted on axial image 22. Prominent cisterna magna. Cerebellar tonsils are low-lying in position. IMPRESSION: 1. Hyperdense right MCA on axial image 22 recommend CTA to exclude acute MCA thrombosis. CTA recommen ded. Case discussed with ER physician. 2. Agenesis of the corpus callosum. Cerebellar tonsils are low-lying in position. Recommend MRI to as sess for Chiari malformation.
--- NOTE | 2020-07-14 16:12 | CT ---
EXAMINATION TYPE: CT angio head neck DATE OF EXAM: 07/14/2020 HISTORY: Headache, dizziness, evaluate right mca COMPARISON: CT angiogram of the head and neck 10/20/2019, CT brain 07/14/2020 CT DLP: 767.6 mGycm. Automated Exposure Control for Dose Reduction was Utilized. TECHNIQUE: CTA scan of the neck is performed with IV Contrast, patient injected with 65 mL of Isovue 370, axial images are obtained, coronal and sagittal reformatted images are reviewed. Three-D recons tructed images are created on an independent workstation and reviewed. FINDINGS: Carotid/Vascular Structures: There is no significant stenosis by NASCET criteria of the internal carotid arteries. The transverse aorta, innominate, left and right common ca rotid, left and right subclavian arteries are patent. Internal and external carotid arteries are george nt. Bilateral vertebral arteries are patent. There are codominant. There is no evident aneurysm, dissection, or embolus within the cerebral vasculature. Anterior special needs babysitter ior circulation are intact. Other: Degenerative disc changes are present visualized spine. IMPRESSION: No significant abnormality is seen.
[2020-07-14] MEDS ORDERED: MECLIZINE 12.5 MG TAB PO STA (16:45)
[2020-07-14 17:33] VITALS: BP 139/81; PULSE 66; RESP 18
== END 2020-07-14 17:33 | disposition home or self-care (01) ==
LOC: EC 13:41
DX: R42 Dizziness and giddiness (principal); R10.9 Unspecified abdominal pain; I10 Essential (primary) hypertension; Z79.899 Other long term (current) drug therapy; Z88.0 Allergy status to penicillin; Z88.1 Allergy status to other antibiotic agents; Z88.6 Allergy status to analgesic agent; Z20.828 Contact with and (suspected) exposure to other viral communicable diseases
CPT/HCPCS: 93005; 80053; 85025; 70496; 70450; 70498; 99284; 96360; U0003

== ENCOUNTER → 2020-12-18 | Outpatient (CLI) | payer BC ==
--- NOTE | 2020-12-18 12:51 | FL ---
EXAMINATION TYPE: FL barium swallow DATE OF EXAM: 12/18/2020 CLINICAL INDICATION: 40-year-old male R13.19, dysphagia. History of Christopher fundoplication last year. Complaining of food and drink coming back up. COMPARISON: 04/09/2020 Total Fluoroscopy Time: 3 minutes 5 seconds FINDINGS: The swallowing mechanism is normal and hypopharyngeal anatomy is preserved. The cervical portion has a normal course and caliber and normal motility. There is mild distention of the thoracic portion with normal course and mucosa. We note a moderate relative narrowing at the GE junction which becomes more profound when the patient is prone or supine. This results in persistent pooling of the contrast column within the esophagus a nd episodes of intraesophageal reflux. The mucosa is normal and no persistent filling defect is encountered. No definite recurrent hiatal hernia. IMPRESSION: 1. 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 There is a moderate relative narrowing which b ecomes more profound when the patient is prone or supine resulting in persistent pooling of the contr ast column and episodes of gastroesophageal reflux. 2. No definite recurrent hiatal hernia.
== END | disposition home or self-care (01) ==
LOC: RADUSWWP 09:04
PROVIDERS: ATTEND Surgery
DX: K21.9 Gastro-esophageal reflux disease without esophagitis (principal)
CPT/HCPCS: 74220

== ENCOUNTER 2020-12-24 10:25 | Day surgery (SDC) | payer BC ==
[2020-12-23 08:56] VITALS: BMI 31.8
[~2020-12-24 10:25] MED LIST changes: -CLINDAMYCIN 900 MG in DEXTROSE 5% IN WATER 50 ML IVPB ONE; -GENTAMICIN 500 MG in SODIUM CHLORIDE 0.9% 100 ML IVPB ONE; -HEPARIN SODIUM,PORCINE 5,000 UNIT/ML 1 ML VIAL SQ ONE; +LACTATED RINGERS 1,000 ML IV SCH
[2020-12-24 11:20] VITALS: TEMP 97.8
[2020-12-24] MEDS ORDERED: LIDOCAINE 1% (10MG/ML) FOR IV START INTRADERMA ONE (11:25)
[2020-12-24] MEDS ORDERED: PROPOFOL 10 MG/ML 20 ML VIAL IV ONE (12:01)
[2020-12-24] MEDS ORDERED: LIDOCAINE 1% INJ 10MG/ML (20 ML MDV) ONE (12:01)
--- NOTE | 2020-12-24 12:07 | P.GSHP ---
History of Present Illness H&P Date: 12/24/20 Chief Complaint: Dysphagia Is a 40-year-old male history of dysphagia. Patient presents today for EGD. Past Medical History Past Medical History: GERD/Reflux, Hypertension, Pneumonia Additional Past Medical History / Comment(s): kidney stones, HAS BEEN HAVING DIFFICULTY SWALLOWING SINCE JOSEPHINE PROCEDURE History of Any Multi-Drug Resistant Organisms: None Reported Past Surgical History: Hernia Repair Additional Past Surgical History / Comment(s): bronchoscopy, JOSEPHINE, EGD Past Anesthesia/Blood Transfusion Reactions: Previous Problems w/ Anesthesia, Motion Sickness Additional Past Anesthesia/Blood Transfusion Reaction / Comment(s): "takes long time to shake out of it -blood pressure drops very low during the middle of the night after procedure" suggested by PCP that be monitored possible overnight in observation Smoking Status: Never smoker - Past Family History Mother Family Medical History: No Reported History Medications and Allergies Home Medications Medication Instructions Recorded Confirmed Type Cetirizine HCl [Zyrtec] 10 mg PO DAILY 11/04/19 12/23/20 History atenoloL [Atenolol] 25 mg PO BID 11/04/19 12/23/20 History Fluticasone Nasal [place] [Flonase 1 spray EA NOSTRIL DAILY PRN 07/14/20 12/23/20 History Nasal [place]] Allergies Allergy/AdvReac Type Severity Reaction Status Date / Time acetaminophen [From Tylenol] Allergy Rash/Hives Verified 12/24/20 11:13 cephalexin [From Keflex] Allergy Rash/Hives Verified 12/24/20 11:13 Penicillins Allergy Rash/Hives Verified 12/24/20 11:13 Surgical - Exam Vital Signs Temp Pulse Resp BP Pulse Ox 97.8 F 65 16 107/60 95 12/24/20 11:18 12/24/20 11:18 12/24/20 11:18 12/24/20 11:18 12/24/20 11:18 - General well developed, well nourished, no distress - Eyes PERRL - ENT normal pinna - Neck no masses - Respiratory normal expansion - Cardiovascular Rhythm: regular - Abdomen Abdomen: soft, non tender Assessment and Plan Assessment: Patient. We'll perform EGD.
--- NOTE | 2020-12-24 12:14 | P.OP ---
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 He received IV sedation. The gastroscope which or breast passed in the esophagus the stomach. Scope was placed through the pylorus. First and second portion duodenum appeared normal. Scope summer back the antrum this appeared normal. Scope was brought back and a fundal placed wrap which. We'll just below the GE junction there is evidence of a stricture at this area. A 20 mm balloon was placed across stricture L position for 3 minutes. There is no evidence of any injury to the stomach or esophagus. The balloon was withdrawn. The scope was able to passed easily into the stomach scope was withdrawn for patient.
[2020-12-24] MEDS ORDERED: KETOROLAC 15 MG/ML 1 ML VIAL ONE (13:05)
[2020-12-24] MEDS ORDERED: KETOROLAC 15 MG/ML 1 ML VIAL IVP ONE (13:05)
[2020-12-24] MEDS ORDERED: HYDROmorphone 0.5 MG/0.5 ML SYRINGE IVP ONE ×2 (13:25→13:35)
[2020-12-24 15:17] VITALS: RESP 20
[2020-12-24] MEDS ORDERED: DEXAMETHASONE SOD PHOSPHATE 4 MG/ML 1 ML VIAL IV ONE (15:45)
[2020-12-24] MEDS ORDERED: ONDANSETRON 4 MG/2 ML VIAL IVP ONE (15:45)
[2020-12-24] MEDS ORDERED: ONDANSETRON 4 MG/2 ML VIAL ONE (15:45)
[2020-12-24 16:35] VITALS: BP 107/74; PULSE 56
== END 2020-12-24 16:49 | disposition home or self-care (01) ==
LOC: ORWHC2ENDO 10:25
PROVIDERS: ATTEND Surgery
DX: K22.2 Esophageal obstruction (principal); K21.9 Gastro-esophageal reflux disease without esophagitis; I10 Essential (primary) hypertension; Z87.01 Personal history of pneumonia (recurrent); Z87.442 Personal history of urinary calculi; Z98.890 Other specified postprocedural states; Z79.899 Other long term (current) drug therapy; Z88.6 Allergy status to analgesic agent; Z88.1 Allergy status to other antibiotic agents; Z88.0 Allergy status to penicillin
CPT/HCPCS: 43249; J1100; J2405; J2001; J1885; J2704; J1170; C1726

== ENCOUNTER 2021-01-26 19:24 | Observation (INO) | payer BC ==
[2021-01-26] MEDS ORDERED: SODIUM CHLORIDE 0.9% 1,000 ML IV STA (20:11)
[2021-01-26] MEDS ORDERED: MORPHINE SULFATE 2 MG/ML SYRINGE IVP STA (20:11)
[2021-01-26] MEDS ORDERED: FAMOTIDINE 20 MG/2 ML VIAL IV STA (20:12)
--- NOTE | 2021-01-26 20:18 | ED ---
General Adult HPI - General Chief complaint: Nausea/Vomiting/Diarrhea Stated complaint: unable to eat Time Seen by Provider: 01/26/21 19:57 Source: patient, family, RN notes reviewed Mode of arrival: ambulatory Limitations: no limitations - History of Present Illness Initial comments: 40-year-old male patient presents to the emergency room with family member complaining of epigastric pain for 3 days and inability to eat or drink fluids. Patient was sent by Dr. Adair for admission after an esophageal dilation 3 weeks ago. Patient denies any chest pain or shortness of breath. Denies any fevers but states every time he eats immediately feels as though it gets stuck epigastric area and then he vomits. Patient denies any medical emesis or charisse tochezia. States the pain is 8 out of 10 and it feels tight and sharp but is not constant. Patient states he also feels as though there is something squeezing him inside and is unable to get the food or fluid down. -: days(s) (3) Location: abdomen (Epigastric) Radiation: non-radiation Severity scale (1-10): 8 Quality: burning, sharp Consistency: intermittent Improves with: none Worsens with: eating, other (Supine position) Associated Symptoms: loss of appetite (Inability to keep fluids or food down for 3 days), other (Insomnia) Treatments Prior to Arrival: none - Related Data Home Medications Medication Instructions Recorded Confirmed Cetirizine HCl [Zyrtec] 10 mg PO HS 11/04/19 01/26/21 atenoloL [Atenolol] 12.5 mg PO BID 11/04/19 01/26/21 Aspirin EC [Ecotrin Low Dose] 81 mg PO DAILY 01/26/21 01/26/21 Allergies Allergy/AdvReac Type Severity Reaction Status Date / Time acetaminophen [From Tylenol] Allergy Rash/Hives Verified 01/26/21 20:46 cephalexin [From Keflex] Allergy Rash/Hives Verified 01/26/21 20:46 Penicillins Allergy Rash/Hives Verified 01/26/21 20:46 Review of Systems ROS Statement: Those systems with pertinent positive or pertinent negative responses have been documented in the HPI. ROS Other: All systems not noted in ROS Statement are negative. Past Medical History Past Medical History: GERD/Reflux, Hypertension, Pneumonia Additional Past Medical History / Comment(s): kidney stones, hiatial hernia History of Any Multi-Drug Resistant Organisms: None Reported Past Surgical History: Hernia Repair Additional Past Surgical History / Comment(s): bronchoscopy, esophageal dilation Past Anesthesia/Blood Transfusion Reactions: Previous Problems w/ Anesthesia, Motion Sickness Additional Past Anesthesia/Blood Transfusion Reaction / Comment(s): "takes long time to shake out of it -blood pressure drops very low during the middle of the night after procedure" suggested by PCP that be monitored possible overnight in observation Past Psychological History: No Psychological Hx Reported Smoking Status: Never smoker Past Alcohol Use History: None Reported Past Drug Use History: None Reported - Past Family History Mother Family Medical History: No Reported History General Exam Limitations: no limitations General appearance: alert Head exam: Present: atraumatic, normocephalic, normal inspection Eye exam: Present: PERRL, EOMI, conjunctival injection. Absent: scleral icterus, periorbital swelling, periorbital tenderness Pupils: Present: normal accommodation ENT exam: Present: normal exam, normal oropharynx, mucous membranes moist Neck exam: Present: normal inspection, full ROM. Absent: tenderness, meningismus, lymphadenopathy, thyromegaly Respiratory exam: Present: normal lung sounds bilaterally. Absent: respiratory distress, wheezes, rales, rhonchi, stridor, chest wall tenderness, accessory mus moi use Cardiovascular Exam: Present: regular rate, normal rhythm, normal heart sounds. Absent: systolic murmur, diastolic murmur, rubs, gallop, clicks, JVD GI/Abdominal exam: Present: soft, normal bowel sounds. Absent: distended, tenderness, guarding, rebound, rigid Rectal exam: Present: deferred Extremities exam: Present: normal inspection, full ROM, normal capillary refill. Absent: tenderness, pedal edema, joint swelling, calf tenderness Back exam: Present: normal inspection, full ROM. Absent: tenderness, CVA tenderness (R), CVA tenderness (L), muscle spasm, paraspinal tenderness, vertebral tenderness Neurological exam: Present: alert, oriented X3, CN II-XII intact Psychiatric exam: Present: normal affect, normal mood Skin exam: Present: warm, dry, intact, normal color. Absent: rash, cyanosis, diaphoretic, erythema, petechiae Course Vital Signs 01/26/21 19:47 Temperature 98.1 F Pulse Rate 63 Respiratory 16 Rate Blood Pressure 121/79 O2 Sat by Pulse 99 Oximetry Medical Decision Making - Medical Decision Making WBC count is 8.2, hemoglobin and hematocrit is 17.4 and 50.7 respectively, CT chest and abdomen shows air-fluid levels within the esophagus but no stenosis and no pneumo mediastinum. There is a moderate fatty infiltration to the liver, loops of bowel in the abdomen appear normal.Spoke with Dr. Adair, will admit patient to his service. Dr. Torres aware. - Lab Data Result diagrams: 01/26/21 20:50 01/26/21 20:50 Lab Results 01/26/21 01/26/21 01/26/21 Range/Units 20:50 20:50 20:50 WBC 8.2 (3.8-10.6) k/uL RBC 5.84 (4.30-5.90) m/uL Hgb 17.4 (13.0-17.5) gm/dL Hct 50.7 (39.0-53.0) % MCV 86.8 (80.0-100.0) fL MCH 29.8 (25.0-35.0) pg MCHC 34.3 (31.0-37.0) g/dL RDW 12.8 (11.5-15.5) % Plt Count 274 (150-450) k/uL MPV 6.9 Neutrophils % 63 % Lymphocytes % 25 % Monocytes % 7 % Eosinophils % 2 % Basophils % 1 % Neutrophils # 5.2 (1.3-7.7) k/uL Lymphocytes # 2.1 (1.0-4.8) k/uL Monocytes # 0.6 (0-1.0) k/uL Eosinophils # 0.2 (0-0.7) k/uL Basophils # 0.1 (0-0.2) k/uL Sodium 143 (137-145) mmol/L Potassium 4.4 (3.5-5.1) mmol/L Chloride 102 (98-107) mmol/L Carbon Dioxide 30 (22-30) mmol/L Anion Gap 11 mmol/L BUN 19 (9-20) mg/dL Creatinine 0.97 (0.66-1.25) mg/dL Est GFR (CKD-EPI)AfAm >90 (>60 ml/min/1.73 sqM) Est GFR (CKD-EPI)NonAf >90 (>60 ml/min/1.73 sqM) Glucose 87 (74-99) mg/dL Plasma Lactic Acid Gabe (0.7-2.0) mmol/L Calcium 10.6 H (8.4-10.2) mg/dL Total Bilirubin 1.7 H (0.2-1.3) mg/dL AST 36 (17-59) U/L ALT 43 (4-49) U/L Alkaline Phosphatase 44 (38-126) U/L Total Protein 8.6 H (6.3-8.2) g/dL Albumin 5.5 H (3.5-5.0) g/dL Amylase 72 (30-110) U/L Lipase 142 (23-300) U/L Urine Color Yellow Urine Appearance Clear (Clear) Urine pH 6.0 (5.0-8.0) Ur Specific [place] 1.050 H (1.001-1.035) Urine Protein Trace H (Negative) Urine Glucose (UA) Negative (Negative) Urine Ketones 2+ H (Negative) Urine Blood Negative (Negative) Urine Nitrite Negative (Negative) Urine Bilirubin Negative (Negative) Urine Urobilinogen <2.0 (<2.0) mg/dL Ur Leukocyte Esterase Negative (Negative) 01/26/21 Range/Units 20:50 WBC (3.8-10.6) k/uL RBC (4.30-5.90) m/uL Hgb (13.0-17.5) gm/dL Hct (39.0-53.0) % MCV (80.0-100.0) fL MCH (25.0-35.0) pg MCHC (31.0-37.0) g/dL RDW (11.5-15.5) % Plt Count (150-450) k/uL MPV Neutrophils % % Lymphocytes % % Monocytes % % Eosinophils % % Basophils % % Neutrophils # (1.3-7.7) k/uL Lymphocytes # (1.0-4.8) k/uL Monocytes # (0-1.0) k/uL Eosinophils # (0-0.7) k/uL Basophils # (0-0.2) k/uL Sodium (137-145) mmol/L Potassium (3.5-5.1) mmol/L Chloride (98-107) mmol/L Carbon Dioxide (22-30) mmol/L Anion Gap mmol/L BUN (9-20) mg/dL Creatinine (0.66-1.25) mg/dL Est GFR (CKD-EPI)AfAm (>60 ml/min/1.73 sqM) Est GFR (CKD-EPI)NonAf (>60 ml/min/1.73 sqM) Glucose (74-99) mg/dL Plasma Lactic Acid Gabe 1.4 (0.7-2.0) mmol/L Calcium (8.4-10.2) mg/dL Total Bilirubin (0.2-1.3) mg/dL AST (17-59) U/L ALT (4-49) U/L Alkaline Phosphatase (38-126) U/L Total Protein (6.3-8.2) g/dL Albumin (3.5-5.0) g/dL Amylase (30-110) U/L Lipase (23-300) U/L Urine Color Urine Appearance (Clear) Urine pH (5.0-8.0) Ur Specific [place] (1.001-1.035) Urine Protein (Negative) Urine Glucose (UA) (Negative) Urine Ketones (Negative) Urine Blood (Negative) Urine Nitrite (Negative) Urine Bilirubin (Negative) Urine Urobilinogen (<2.0) mg/dL Ur Leukocyte Esterase (Negative) Disposition Clinical Impression: Epigastric abdominal pain Disposition: ADMITTED IP TO THIS [facility] Condition: Good Instructions (If sedation given, give patient instructions): Abdominal Pain (ED) Referrals: Son Woody MD [Primary Care Provider] - 1-2 days Decision Date: 01/26/21 Decision Time: 22:24
[2021-01-26] MEDS ORDERED: NALOXONE 0.4 MG/ML 1 ML VIAL IV PRN (20:27)
[2021-01-26 21:04] LABS: Basophils # (A) 0.1 k/uL (0-0.2); Basophils % (A) 1 %; Eosinophils # (A) 0.2 k/uL (0-0.7); Eosinophils % (A) 2 %; HCT 50.7 % (39.0-53.0); HGB 17.4 gm/dL (13.0-17.5); Lymphocytes # (A) 2.1 k/uL (1.0-4.8); Lymphocytes % (A) 25 %; MCH 29.8 pg (25.0-35.0); MCHC 34.3 g/dL (31.0-37.0); MCV 86.8 fL (80.0-100.0); Mean Platelet Volume 6.9; Monocytes # (A) 0.6 k/uL (0-1.0); Monocytes % (A) 7 %; Neutrophils # (A) 5.2 k/uL (1.3-7.7); Neutrophils % (A) 63 %; Platelet Count 274 k/uL (150-450); RBC 5.84 m/uL (4.30-5.90); RDW 12.8 % (11.5-15.5); WBC 8.2 k/uL (3.8-10.6)
[2021-01-26 21:12] LABS: ALT 43 U/L (4-49); AST 36 U/L (17-59); African American GFR (CKD) >90 (>60 ml/min/1.73 sqM); Albumin 5.5 g/dL (3.5-5.0); Alkaline Phosphatase 44 U/L (38-126); Amylase 72 U/L (30-110); Anion Gap 11 mmol/L; Blood Urea Nitrogen 19 mg/dL (9-20); Calcium 10.6 mg/dL (8.4-10.2); Carbon Dioxide 30 mmol/L (22-30); Chloride 102 mmol/L (98-107); Glucose 87 mg/dL (74-99); Lipase 142 U/L (23-300); Non-African American GFR(CKD) >90 (>60 ml/min/1.73 sqM); Potassium 4.4 mmol/L (3.5-5.1); Sodium 143 mmol/L (137-145); Total Bilirubin 1.7 mg/dL (0.2-1.3); Total Protein 8.6 g/dL (6.3-8.2)
[2021-01-26 21:56] LABS: Appearance,Urine Clear (Clear); Bilirubin,Urine Negative (Negative); Blood,Urine Negative (Negative); Color,Urine Yellow; Glucose,Urine (UA) Negative (Negative); Ketones,Urine 2+ (Negative); Leukocyte Esterase,Urine Negative (Negative); Nitrite,Urine Negative (Negative); Protein,Urine Trace (Negative); Urobilinogen,Urine <2.0 mg/dL (<2.0)
--- NOTE | 2021-01-26 22:09 | CT ---
EXAMINATION TYPE: CT chest abdomen w con DATE OF EXAM: 01/26/2021 COMPARISON: CT abdomen 03/02/2020, CT chest 11/04/2019 HISTORY: Post esophageal dilation, epigastric pain, cannot eat. Pt recent gokul sx. CT DLP: 1166.6 mGycm, Automated exposure control for dose reduction was used. CONTRAST: Performed injected with 100 mL of Isovue 300. TECHNIQUE: Axial images were obtained at 5 mm thick sections. Reconstructed images are reviewed on [employer] computer in the coronal plane. FINDINGS: Portion of the thyroid visualized is normal. No suspicious lung nodules or focal infiltrates are present. No enlarged mediastinal or hilar adenopathy is evident. The ascending aorta diameter at the level o f the main pulmonary artery is 4.1 cm. The main pulmonary artery diameter at the bifurcation is 3.9 cm. There couple of air-fluid levels within the esophagus. No pneumomediastinum is identified. CT abdomen: There is moderate fatty infiltration of the liver. Spleen appears unremarkable. Gallbladder is normal. Pancreas is normal. Adrenal glands are normal. Kidneys appear without masses or hydronephrosis. A couple small cortical renal cysts are in the super ior pole left kidney. Loops of bowel within the abdomen and upper pelvis appear unremarkable. Aorta and inferior vena cava are normal. IMPRESSIONS: 1. Air and fluid within the esophagus. No focal esophageal stenosis is identified based on these imag es. No pneumomediastinum is evident. 2. Moderate fatty infiltration to the liver.
[2021-01-27] MEDS: SODIUM CHLORIDE 0.9% 1,000 ML IV SCH ×3 (00:10→23:58)
[2021-01-27] MEDS ORDERED: ONDANSETRON 4 MG/2 ML VIAL IVP PRN (11:10)
--- NOTE | 2021-01-27 11:18 | P.GSHP ---
History of Present Illness H&P Date: 01/27/21 CHIEF COMPLAINT: Dysphagia HISTORY OF PRESENT ILLNESS: This is a 40-year-old male with a known past medical history of GERD status post Christopher fundoplication in March 2020, hypertension. Patient presents to the hospital with complaints of vomiting after eating or drinking. He has been unable to keep anything down. Patient's last EGD was on 12/24/2020 he had EGD with balloon dilation for GE junction stricture and possible slipped fundoplication with Dr. dominguez. Patient continued to have i ssues with vomiting after eating or drinking even after that dilation. Symptoms worsened on Monday. Over the last 5 days patient has been unable to keep anything down. He came into the ER for further evaluation. He had computed tomography scan of the abdomen and pelvis shows air and fluid within the esophagus. No focal esophageal stenosis is identified based on these images. No pneumomediastinum is evident. Moderate fatty infiltration to the liver noted. Patient is scheduled for EGD today. He denies any fever, chills or sweats. Denies any significant change in bowel habits. It has been a few days since his last bowel movement. Patient does note some epigastric discomfort that has occurred since he has been vomiting. Denies any hematemesis. PAST MEDICAL HISTORY: See list. PAST SURGICAL HISTORY: See list. MEDICATIONS: See list. ALLERGIES: See list. SOCIAL HISTORY: No illicit drug use. REVIEW OF SYSTEMS: CONSTITUTIONAL: Denies fever or chills. HEENT: Denies blurred vision, vision changes, or eye pain. Denies hemoptysis CARDIOVASCULAR: Denies chest pain or pressure. RESPIRATORY: No shortness of breath. GASTROINTESTINAL: See HPI for pertinent findings HEMATOLOGIC: Denies bleeding disorders. GENITOURINARY: Denies any blood in urine or increased urinary frequency. SKIN: Denies pruitis. Denies rash. PHYSICAL EXAM: VITAL SIGNS: Reviewed GENERAL: Well-developed in no acute distress. HEENT: No sclera icterus. Extraocular movements grossly intact. Moist buccal mucosa. Head is atraumatic, normocephalic. No nasal drainage. ABDOMEN: Soft. Nondistended. Epigastric tenderness with palpation NEUROLOGIC: Alert and oriented. Cranial nerves II through XII grossly intact. LABORATORY DATA: WBC is 8.2 hemoglobin 17.4 platelets 274 creatinine 0.97 lactic 1.4 total bilirubin 1.7 LFTs normal albumin 5.5 lipase is 142 IMAGING: computed tomography scan of the abdomen and pelvis shows air and fluid within the esophagus. No focal esophageal stenosis is identified based on these images. No pneumomediastinum is evident. Moderate fatty infiltration to the liver noted. ASSESSMENT: 1. Dysphagia with vomiting after eating or drinking 2. Prior history of stricture at GE junction and possible slipped fundoplication with prior EGD with dilation 3. History of GERD status post Christopher fundoplication PLAN: -Patient scheduled for EGD today with Dr. dominguez -Keep patient nothing by mouth -Continue IV fluids -Continue antiemetics PRN Physician Air Brake Adjuster note has been reviewed by physician. Signing provider agrees with the documented findings, assessment, and plan of care. Past Medical History Past Medical History: GERD/Reflux, Hypertension, Pneumonia, Renal Disease Additional Past Medical History / Comment(s): Dysphagia pt states since Christopher fundplication/esophageal stricture with recent EGD/dilation, HTN improving with weight loss, 10/2019 covid 19 pneumonia, kidney stones which pt passed on his own. History of Any Multi-Drug Resistant Organisms: None Reported Past Surgical History: Hernia Repair Additional Past Surgical History / Comment(s): Christopher fundlapication, 12/24/20 EGD with dilation, bronchoscopy d/t covid pneumonia Past Anesthesia/Blood Transfusion Reactions: Previous Problems w/ Anesthesia, Motion Sickness Additional Past Anesthesia/Blood Transfusion Reaction / Comment(s): "takes long time to shake out of it -blood pressure drops very low during the middle of the night after procedure" suggested by PCP that be monitored possible overnight in observation Smoking Status: Never smoker - Past Family History Mother Family Medical History: Fibromyalgia Additional Family Medical History / Comment(s): Mother had cholecystectomy Father History Unknown: Yes Medications and Allergies Home Medications Medication Instructions Recorded Confirmed Type Cetirizine HCl [Zyrtec] 10 mg PO HS 11/04/19 01/26/21 History atenoloL [Atenolol] 12.5 mg PO BID 11/04/19 01/26/21 History Aspirin EC [Ecotrin Low Dose] 81 mg PO DAILY 01/26/21 01/26/21 History Allergies Allergy/AdvReac Type Severity Reaction Status Date / Time acetaminophen [From Tylenol] Allergy Rash/Hives Verified 01/26/21 20:46 cephalexin [From Keflex] Allergy Rash/Hives Verified 01/26/21 20:46 Penicillins Allergy Rash/Hives Verified 01/26/21 20:46 Surgical - Exam Vital Signs Temp Pulse Resp BP Pulse Ox 98.1 F 63 16 121/79 99 01/26/21 19:47 01/26/21 19:47 01/26/21 19:47 01/26/21 19:47 01/26/21 19:47 Results - Labs 01/26/21 20:50 01/26/21 20:50 Abnormal Lab Results - Last 24 Hours (Table) 01/26/21 01/26/21 Range/Units 20:50 20:50 Calcium 10.6 H (8.4-10.2) mg/dL Total Bilirubin 1.7 H (0.2-1.3) mg/dL Total Protein 8.6 H (6.3-8.2) g/dL Albumin 5.5 H (3.5-5.0) g/dL Ur Specific [place] 1.050 H (1.001-1.035) Urine Protein Trace H (Negative) Urine Ketones 2+ H (Negative) Diabetes panel 01/26/21 Range/Units 20:50 Sodium 143 (137-145) mmol/L Potassium 4.4 (3.5-5.1) mmol/L Chloride 102 (98-107) mmol/L Carbon Dioxide 30 (22-30) mmol/L BUN 19 (9-20) mg/dL Creatinine 0.97 (0.66-1.25) mg/dL Glucose 87 (74-99) mg/dL Calcium 10.6 H (8.4-10.2) mg/dL AST 36 (17-59) U/L ALT 43 (4-49) U/L Alkaline Phosphatase 44 (38-126) U/L Total Protein 8.6 H (6.3-8.2) g/dL Albumin 5.5 H (3.5-5.0) g/dL Calcium panel 01/26/21 Range/Units 20:50 Calcium 10.6 H (8.4-10.2) mg/dL Albumin 5.5 H (3.5-5.0) g/dL Pituitary panel 01/26/21 Range/Units 20:50 Sodium 143 (137-145) mmol/L Potassium 4.4 (3.5-5.1) mmol/L Chloride 102 (98-107) mmol/L Carbon Dioxide 30 (22-30) mmol/L BUN 19 (9-20) mg/dL Creatinine 0.97 (0.66-1.25) mg/dL Glucose 87 (74-99) mg/dL Calcium 10.6 H (8.4-10.2) mg/dL Adrenal panel 01/26/21 Range/Units 20:50 Sodium 143 (137-145) mmol/L Potassium 4.4 (3.5-5.1) mmol/L Chloride 102 (98-107) mmol/L Carbon Dioxide 30 (22-30) mmol/L BUN 19 (9-20) mg/dL Creatinine 0.97 (0.66-1.25) mg/dL Glucose 87 (74-99) mg/dL Calcium 10.6 H (8.4-10.2) mg/dL Total Bilirubin 1.7 H (0.2-1.3) mg/dL AST 36 (17-59) U/L ALT 43 (4-49) U/L Alkaline Phosphatase 44 (38-126) U/L Total Protein 8.6 H (6.3-8.2) g/dL Albumin 5.5 H (3.5-5.0) g/dL
[2021-01-27] MEDS: PANTOPRAZOLE 40 MG/10 ML VIAL IVP SCH (11:51)
[2021-01-27] MEDS ORDERED: LIDOCAINE 1% INJ 10MG/ML (20 ML MDV) ONE (15:38)
[2021-01-27] MEDS ORDERED: PROPOFOL 10 MG/ML 20 ML VIAL IV ONE (15:38)
[2021-01-27] MEDS ORDERED: IV FLUID CONTINUATION 1,000 ML IV ONE (15:48)
--- NOTE | 2021-01-27 16:08 | P.OP ---
Date of Procedure: 01/27/21 Preoperative Diagnosis: Dysphagia Postoperative Diagnosis: Possible GE junction stricture, questionable recurrent hiatal hernia Anesthesia: MAC Surgeon: Singh Adair Pathology: none sent Condition: stable Disposition: PACU Description of Procedure: Patient's placed on the operating table in the lateral position. He received IV sedation. The gastroscope was oropharynx passed in the esophagus. In the distal esophagus of the GE junction appeared to be a slight stricture. The scope was placed through the GE junction into the stomach. The remainder some appeared normal. This point scope retroflexed and there was a possible small recurrent hiatal hernia. The GE junction was at 47 is. The 20 mm balloon was placed across the GE junction and held in position. There was no injury to the mucosa seen. At this point scope withdrawn. Patient tolerated the procedure well.
[2021-01-27 16:53] VITALS: RESP 16
[2021-01-27] MEDS: MORPHINE SULFATE 4 MG/ML SYRINGE IV PRN (17:01)
[2021-01-28] MEDS: MORPHINE SULFATE 4 MG/ML SYRINGE IV PRN (00:05)
[2021-01-28] MEDS: PANTOPRAZOLE 40 MG/10 ML VIAL IVP SCH (08:58)
[2021-01-28] MEDS ORDERED: MORPHINE SULFATE 2 MG/ML SYRINGE IV PRN (10:49)
[2021-01-28 11:34] VITALS: BP 116/73; PULSE 70; TEMP 98.5
[2021-01-28 14:18] VITALS: BMI 30.5
--- NOTE | 2021-01-28 14:29 | P.DS ---
Providers Date of admission: 01/26/21 20:27 Expected date of discharge: 01/28/21 Attending physician: Singh Dominguez Primary care physician: Son Woody Hospital Course: Discharge diagnosis 1. Dysphagia 2. Possible GE junction stricture and questionable recurrent hiatal hernia status post EGD with dilation Hospital course his is a 40-year-old male with a known past medical history of GERD status post Christopher fundoplication in March 2020, hypertension. Patient presents to the hospital with complaints of vomiting after eating or drinking. He has been unable to keep anything down. Patient's last EGD was on 12/24/2020 he had EGD with balloon dilation for GE junction stricture and possible slipped fundoplication with Dr. dominguez. Patient continued to have issues with vomiting after eating or drinking even after that dilation. Symptoms worsened on Monday. Over the last 5 days patient has been unable to keep anything down. He came into the ER for further evaluation. He had computed tomography scan of the abdomen and pelvis shows air and fluid within the esophagus. No focal esophageal stenosis is identified based on these images. No pneumomediastinum is evident. Moderate fatty infiltration to the liver noted. Patient is status post EGD with dilation. He was able to tolerate clear liquid diet. Patient's pain has improved. He has had no dysphasia or nausea or vomiting. He is afebrile. He is tolerating diet. He is stable for discharge. Patient will follow-up with Dr. Dominguez on Monday. He is to continue a full liquid diet until his follow-up appointment. And at that time they will discuss if any further surgical intervention needs to be done regarding a possible recurrent hiatal hernia. Please refer to chart for any further details. Physician Belting Inspector note has been reviewed by physician. Signing provider agrees with the documented findings, assessment, and plan of care. Patient Condition at Discharge: Stable Plan - Discharge Summary Discharge Rx Participant: No New Discharge Prescriptions: Continue atenoloL [Atenolol] 12.5 mg PO BID Cetirizine HCl [Zyrtec] 10 mg PO HS Aspirin EC [Ecotrin Low Dose] 81 mg PO DAILY Discharge Medication List Cetirizine HCl [Zyrtec] 10 mg PO HS 11/04/19 [History] atenoloL [Atenolol] 12.5 mg PO BID 11/04/19 [History] Aspirin EC [Ecotrin Low Dose] 81 mg PO DAILY 01/26/21 [History] Follow up Appointment(s)/Referral(s): Son Woody MD [Primary Care Provider] - 1-2 days Singh Dominguez MD [STAFF PHYSICIAN] - 02/02/21 Patient Instructions/Handouts: Abdominal Pain (ED) Activity/Diet/Wound Care/Special Instructions: Activity as tolerated Continue full liquid diet until seen by surgeon in office Discharge Disposition: HOME SELF-CARE
== END 2021-01-28 15:05 | disposition home or self-care (01) ==
LOC: EC 19:24 → 6NMEDSUR 20:27 → 5NMEDONC 01-27 15:58
PROVIDERS: ADMIT Surgery; ATTEND Surgery
DX: K22.2 Esophageal obstruction (principal); R13.10 Dysphagia, unspecified; I10 Essential (primary) hypertension; Z20.822 Contact with and (suspected) exposure to COVID-19; K21.9 Gastro-esophageal reflux disease without esophagitis; K76.0 Fatty (change of) liver, not elsewhere classified; G47.09 Other insomnia; Z79.82 Long term (current) use of aspirin; Z88.0 Allergy status to penicillin; Z88.1 Allergy status to other antibiotic agents; Z88.6 Allergy status to analgesic agent; Z86.16 Personal history of COVID-19; Z87.442 Personal history of urinary calculi; Z87.01 Personal history of pneumonia (recurrent); Z98.890 Other specified postprocedural states; Z82.0 Family history of epilepsy and other diseases of the nervous system; Z83.79 Family history of other diseases of the digestive system
CPT/HCPCS: 43249; 96361 ×2; 96374; 96375; 99285; 36415; 80053; 82150; 83605; 83690; 85025; 81003; 87635; 71260; 74160; G0378 ×3; J2270 ×3; J2405; J2001; J2704; C9113 ×2; Q9967; C1726

== ENCOUNTER 2021-02-04 10:06 | Day surgery (SDC) | payer BC ==
[2021-02-03 09:14] VITALS: BMI 30.5
[2021-02-04 11:14] VITALS: TEMP 98.5
[2021-02-04] MEDS ORDERED: LIDOCAINE 1% (10MG/ML) FOR IV START INTRADERMA ONE (11:14)
[2021-02-04] MEDS ORDERED: PROPOFOL 10 MG/ML 20 ML VIAL IV ONE (11:31)
[2021-02-04] MEDS ORDERED: LIDOCAINE 1% INJ 10MG/ML (20 ML MDV) ONE (11:31)
[2021-02-04 11:32] LABS: HCT 52.6 % (39.0-53.0); HGB 17.5 gm/dL (13.0-17.5); MCH 28.3 pg (25.0-35.0); MCHC 33.4 g/dL (31.0-37.0); MCV 84.9 fL (80.0-100.0); Mean Platelet Volume 6.8; Platelet Count 267 k/uL (150-450); RBC 6.19 m/uL (4.30-5.90); RDW 13.7 % (11.5-15.5); WBC 8.9 k/uL (3.8-10.6)
--- NOTE | 2021-02-04 11:37 | P.GSHP ---
History of Present Illness H&P Date: 02/04/21 Chief Complaint: Dysphagia This a 40-year-old male who presents today for EGD. He's had issues with dysphagia. Past Medical History Past Medical History: GERD/Reflux, Hypertension, Pneumonia Additional Past Medical History / Comment(s): kidney stones, hiatial hernia, TROUBLE SWALLOWING, History of Any Multi-Drug Resistant Organisms: None Reported Past Surgical History: Hernia Repair Additional Past Surgical History / Comment(s): bronchoscopy, esophageal dilation X3, NISen FUNDPLICATION, Past Anesthesia/Blood Transfusion Reactions: Previous Problems w/ Anesthesia, Motion Sickness Additional Past Anesthesia/Blood Transfusion Reaction / Comment(s): "takes long time to wake up -blood pressure drops very low during the middle of the night after procedure" suggested by PCP that be monitored possible overnight in observation" Smoking Status: Never smoker - Past Family History Mother Family Medical History: Fibromyalgia Medications and Allergies Home Medications Medication Instructions Recorded Confirmed Type Cetirizine HCl [Zyrtec] 10 mg PO HS 11/04/19 02/03/21 History atenoloL [Atenolol] 12.5 mg PO BID 11/04/19 02/03/21 History Aspirin EC [Ecotrin Low Dose] 81 mg PO DAILY 01/26/21 02/03/21 History Allergies Allergy/AdvReac Type Severity Reaction Status Date / Time acetaminophen [From Tylenol] Allergy Rash/Hives Verified 02/04/21 11:04 cephalexin [From Keflex] Allergy Rash/Hives Verified 02/04/21 11:04 Penicillins Allergy Rash/Hives Verified 02/04/21 11:04 Surgical - Exam Vital Signs Temp Pulse Resp BP Pulse Ox 98.5 F 87 16 128/94 95 02/04/21 11:12 02/04/21 11:12 02/04/21 11:12 02/04/21 11:12 02/04/21 11:12 - General well developed, well nourished, no distress - Eyes PERRL - ENT normal pinna - Neck no masses - Respiratory normal expansion - Cardiovascular Rhythm: regular - Abdomen Abdomen: soft, non tender Results - Labs 02/04/21 11:11 Abnormal Lab Results - Last 24 Hours (Table) 02/04/21 Range/Units 11:11 RBC 6.19 H (4.30-5.90) m/uL Assessment and Plan Assessment: Dysphagia. Patient will undergo EGD with balloon dilatation
--- NOTE | 2021-02-04 11:44 | P.OP ---
Date of Procedure: 02/04/21 Preoperative Diagnosis: Dysphagia Postoperative Diagnosis: GE junction stricture Procedure(s) Performed: EGD with balloon dilatation of GE junction stricture Anesthesia: MAC Surgeon: Singh Adair Pathology: none sent Condition: stable Disposition: PACU Description of Procedure: The patient's placed on the endoscopy table in the lateral position. He received IV sedation. The gastroscope placed oropharynx passed in the esophagus and stomach. Scope was then placed through the pylorus. The first and second portion of duodenum appeared normal. Scope was then brought back the antrum and this appeared normal. Scope was retroflexed meters some appeared normal. At the GE junction there appeared to be a mild stricture. A 20 mm balloon was positioned stricture site and then dilated. The balloon was dilated 20 mm. There is known to any injury to the stomach or esophagus. The scope passed eas solo through the area. Scope was withdrawn.
[2021-02-04 11:56] LABS: ALT 38 U/L (4-49); AST 38 U/L (17-59); African American GFR (CKD) >90 (>60 ml/min/1.73 sqM); Albumin 5.3 g/dL (3.5-5.0); Alkaline Phosphatase 46 U/L (38-126); Anion Gap 15 mmol/L; Blood Urea Nitrogen 16 mg/dL (9-20); Calcium 10.1 mg/dL (8.4-10.2); Carbon Dioxide 25 mmol/L (22-30); Chloride 102 mmol/L (98-107); Glucose 81 mg/dL (74-99); Non-African American GFR(CKD) >90 (>60 ml/min/1.73 sqM); Potassium 4.3 mmol/L (3.5-5.1); Sodium 142 mmol/L (137-145); Total Bilirubin 1.7 mg/dL (0.2-1.3); Total Protein 8.5 g/dL (6.3-8.2)
[2021-02-04] MEDS ORDERED: HYDROmorphone 0.5 MG/0.5 ML SYRINGE IVP ONE (12:09)
[2021-02-04 12:23] VITALS: RESP 20
[2021-02-04 12:39] VITALS: BP 112/78; PULSE 81
[2021-02-04] MEDS ORDERED: ONDANSETRON ODT 4 MG TAB PO ONE (12:50)
== END 2021-02-04 13:03 | disposition home or self-care (01) ==
LOC: ORWHC2ENDO 10:06
PROVIDERS: ATTEND Surgery
DX: K22.2 Esophageal obstruction (principal); K21.9 Gastro-esophageal reflux disease without esophagitis; I10 Essential (primary) hypertension; K44.9 Diaphragmatic hernia without obstruction or gangrene; Z79.899 Other long term (current) drug therapy; Z88.6 Allergy status to analgesic agent; Z88.1 Allergy status to other antibiotic agents; Z88.0 Allergy status to penicillin
CPT/HCPCS: 80053; 85027; 43249; J2001; J2704; J1170; C1726

== ENCOUNTER 2021-02-04 22:13 | Inpatient (IN) | payer BC ==
[2021-02-04] MEDS ORDERED: PANTOPRAZOLE 40 MG/10 ML VIAL IVP STA (23:57)
[2021-02-04] MEDS ORDERED: SODIUM CHLORIDE 0.9% 1,000 ML IV STA ×2 (23:57)
[2021-02-04] MEDS ORDERED: MORPHINE SULFATE 4 MG/ML SYRINGE IV STA (23:57)
[2021-02-04] MEDS ORDERED: ONDANSETRON 4 MG/2 ML VIAL IVP STA (23:57)
--- NOTE | 2021-02-04 23:58 | ED ---
Recheck HPI - General Chief Complaint: Nausea/Vomiting/Diarrhea Stated Complaint: unable to eat or drink Time Seen by Provider: 02/04/21 23:56 Source: patient, family, RN notes reviewed, old records reviewed Mode of arrival: ambulatory Limitations: no limitations - History of Present Illness Initial Comments: This is a 40-year-old male DF for evaluation patient Dese for evaluation regards to intractable nausea and vomiting. Patient states she's had issues ever since he had Bharathi fundoplication. He'll hernia. Significant recent weight loss. Unable to eat or drink. Patient had dilation last week and another esophageal dilation today. Patient cannot keep down fluids can occasionally keep down secretions. Having mild anterior abdominal pain MD Complaint: other (Unable to eat or drink) -: hour(s) Returns Today for: persistent/worsening pain related to initial visit Symptoms Since Prior Visit: worsening pain Associated Symptoms: nausea, abdominal pain Treatments Prior to Arrival: Given Pain Meds on, other (Recent esophageal dilation) - Related Data Home Medications Medication Instructions Recorded Confirmed Cetirizine HCl [Zyrtec] 10 mg PO HS 11/04/19 02/03/21 atenoloL [Atenolol] 12.5 mg PO BID 11/04/19 02/03/21 Aspirin EC [Ecotrin Low Dose] 81 mg PO DAILY 01/26/21 02/03/21 Allergies Allergy/AdvReac Type Severity Reaction Status Date / Time acetaminophen [From Tylenol] Allergy Rash/Hives Verified 02/04/21 23:47 cephalexin [From Keflex] Allergy Rash/Hives Verified 02/04/21 23:47 Penicillins Allergy Rash/Hives Verified 02/04/21 23:47 Review of Systems ROS Statement: Those systems with pertinent positive or pertinent negative responses have been documented in the HPI. ROS Other: All systems not noted in ROS Statement are negative. Past Medical History Past Medical History: GERD/Reflux Additional Past Medical History / Comment(s): kidney stones, hiatial hernia History of Any Multi-Drug Resistant Organisms: None Reported Past Surgical History: Hernia Repair Additional Past Surgical History / Comment(s): bronchoscopy, esophageal dilation Past Anesthesia/Blood Transfusion Reactions: Previous Problems w/ Anesthesia, Motion Sickness Additional Past Anesthesia/Blood Transfusion Reaction / Comment(s): "takes long time to shake out of it -blood pressure drops very low during the middle of the night after procedure" suggested by PCP that be monitored possible overnight in observation Past Psychological History: No Psychological Hx Reported Smoking Status: Never smoker Past Alcohol Use History: None Reported Past Drug Use History: None Reported - Past Family History Mother Family Medical History: Fibromyalgia General Exam Limitations: no limitations General appearance: alert, in no apparent distress Head exam: Present: atraumatic, normocephalic, normal inspection Eye exam: Present: normal appearance, PERRL, EOMI. Absent: scleral icterus, conjunctival injection, periorbital swelling ENT exam: Present: normal exam, mucous membranes moist Neck exam: Present: normal inspection. Absent: tenderness, meningismus, lymphadenopathy Respiratory exam: Present: normal lung sounds bilaterally. Absent: respiratory distress, wheezes, rales, rhonchi, stridor Cardiovascular Exam: Present: regular rate, normal rhythm, normal heart sounds. Absent: systolic murmur, diastolic murmur, rubs, gallop, clicks GI/Abdominal exam: Present: soft, normal bowel sounds. Absent: distended, tenderness, guarding, rebound, rigid Extremities exam: Present: normal inspection, full ROM, normal capillary refill. Absent: tenderness, pedal edema, joint swelling, calf tenderness Back exam: Present: normal inspection Neurological exam: Present: alert, oriented X3, CN II-XII intact Psychiatric exam: Present: normal affect, normal mood Skin exam: Present: warm, dry, intact, normal color. Absent: rash Course Vital Signs 02/04/21 23:45 Temperature 98.2 F Pulse Rate 81 Respiratory 20 Rate Blood Pressure 120/80 O2 Sat by Pulse 97 Oximetry - Reevaluation(s) Reevaluation #1: 02/05/21 00:35 Medical records reviewed Reevaluation #2: 02/05/21 00:35 Patient symptoms persist unable to drink Reevaluation #3: 02/05/21 00:35 Spoke patient regarding findings and results - Consultations Consultation #1: Spoke with Dr. Frances will admit to Dr. Da Silva Medical Decision Making - Medical Decision Making 40 male DF for evaluation intractable nausea vomiting abdominal pain after esophageal dilation. Patient is unable to eat and drink, will admit for symptomatic therapy - Radiology Data Radiology results: report reviewed (X-ray abdominal series and chest is negative for acute disease), image reviewed Disposition Clinical Impression: Chest pressure, GERD (gastroesophageal reflux disease), Epigastric abdominal pain, Dehydration, Nausea & vomiting Disposition: ADMITTED IP TO THIS HOSP Condition: Fair Is patient prescribed a controlled substance at d/c from ED?: No Referrals: Son Woody MD [Primary Care Provider] - 1-2 days
[2021-02-05] MEDS ORDERED: NALOXONE 0.4 MG/ML 1 ML VIAL IV PRN (00:31)
[2021-02-05 01:49] LABS: Basophils % (A) 0 %; Eosinophils # (A) 0.2 k/uL (0-0.7); Eosinophils % (A) 2 %; HGB 17.5 gm/dL (13.0-17.5); Lymphocytes # (A) 1.8 k/uL (1.0-4.8); Lymphocytes % (A) 21 %; MCH 29.7 pg (25.0-35.0); MCV 84.7 fL (80.0-100.0); Mean Platelet Volume 6.8; Monocytes # (A) 0.5 k/uL (0-1.0); Monocytes % (A) 6 %; Neutrophils # (A) 5.9 k/uL (1.3-7.7); Neutrophils % (A) 69 %; Platelet Count 231 k/uL (150-450); WBC 8.6 k/uL (3.8-10.6)
[2021-02-05 01:59] LABS: ALT 34 U/L (4-49); AST 31 U/L (17-59); African American GFR (CKD) >90 (>60 ml/min/1.73 sqM); Albumin 5.4 g/dL (3.5-5.0); Alkaline Phosphatase 49 U/L (38-126); Anion Gap 19 mmol/L; Blood Urea Nitrogen 13 mg/dL (9-20); Carbon Dioxide 21 mmol/L (22-30); Chloride 102 mmol/L (98-107); Creatine Kinase 54 U/L (55-170); Glucose 73 mg/dL (74-99); Magnesium 1.8 mg/dL (1.6-2.3); Non-African American GFR(CKD) >90 (>60 ml/min/1.73 sqM); Phosphorus 3.2 mg/dL (2.5-4.5); Sodium 142 mmol/L (137-145); Total Bilirubin 1.6 mg/dL (0.2-1.3); Total Protein 8.4 g/dL (6.3-8.2)
--- NOTE | 2021-02-05 02:04 | XR ---
EXAM: XR Abdomen, 2 Views and XR Chest, 1 View CLINICAL HISTORY: ITS.REASON XR Reason: pain TECHNIQUE: Frontal view of the chest, frontal view of the abdomen/pelvis and upright or decubitus view of the abdomen. COMPARISON: No relevant prior studies available. FINDINGS: Lungs: Unremarkable. No consolidation. Pleural space: Unremarkable. No pneumothorax. Heart: Unremarkable. No cardiomegaly. Mediastinum: Unremarkable. Intraperitoneal space: No pneumoperitoneum under the diaphragm. Gastrointestinal tract: Gas fluid level in a nondilated stomach. 6 cm of stool in the right colon is upper normal. No dilated bowel loops are seen. Bones/joints: Unremarkable. Vasculature: 6 mm phlebolith in the left side of the pelvis. IMPRESSION: No acute findings in the chest, abdomen or pelvis.
[2021-02-05 02:10] LABS: INR 1.1 (<1.2); Partial Thromboplastin Time 24.7 sec (22.0-30.0); Prothrombin Time 11.2 sec (9.0-12.0)
[2021-02-05] MEDS: DEXTROSE 5%-0.45% NACL 1,000 ML IV SCH ×3 (05:03→23:14)
[2021-02-05] MEDS: PANTOPRAZOLE 40 MG/10 ML VIAL IV SCH (08:50)
[2021-02-05] MEDS: DEXAMETHASONE SOD PHOSPHATE 4 MG/ML 1 ML VIAL IV SCH ×5 (08:51→23:11)
[2021-02-05] MEDS: ONDANSETRON 4 MG/2 ML VIAL IVP PRN ×2 (08:51→19:49)
[2021-02-05] MEDS: LACTATED RINGERS 1,000 ML IV SCH ×10 (11:22→21:52)
[2021-02-05] MEDS: MORPHINE SULFATE 4 MG/ML SYRINGE IV PRN ×2 (11:33→19:49)
--- NOTE | 2021-02-05 14:25 | P.GSHP ---
History of Present Illness H&P Date: 02/05/21 CHIEF COMPLAINT: Dysphagia HISTORY OF PRESENT ILLNESS: This is a 40-year-old male with a known history of Christopher fundoplication in March 2020. Patient reports since that procedure he has had difficulty with swallowing and recurrent episodes of vomiting after eating. He has had unintentional weight loss of over 20 pounds. He has had 3 EGDs with dilation. Last EGD with dilation was yesterday 02/04/2021. 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 He returned home and was u nable to keep anything down. He feels that as he swallows things get stuck in the center of his chest and then he vomits them back up. He will even vomit his saliva. Patient had acute abdominal x-ray series which was negative. He has been started on IV Decadron. He is given IV fluids and fluid bolus in the ER due to dehydration. Patient was to be scheduled for revision of hiatal hernia next week with Dr. Adair in the outpatient setting. Patient denies any fever, chills or sweats. He did report having very dark urine and feeling dehydrated. He denies any change in bowel habits. He has been requiring IV morphine for pain control. He does report pain in the esophagus area. PAST MEDICAL HISTORY: See list. PAST SURGICAL HISTORY: See list. MEDICATIONS: See list. ALLERGIES: See list. SOCIAL HISTORY: No illicit drug use. REVIEW OF SYSTEMS: CONSTITUTIONAL: Denies fever or chills. HEENT: Denies blurred vision, vision changes, or eye pain. Denies hemoptysis CARDIOVASCULAR: Denies chest pain or pressure. RESPIRATORY: No shortness of breath. GASTROINTESTINAL: See HPI for pertinent findings HEMATOLOGIC: Denies bleeding disorders. GENITOURINARY: Denies any blood in urine or increased urinary frequency. SKIN: Denies pruitis. Denies rash. PHYSICAL EXAM: VITAL SIGNS: Reviewed GENERAL: Well-developed in no acute distress. HEENT: No sclera icterus. Extraocular movements grossly intact. Moist buccal mucosa. Head is atraumatic, normocephalic. No nasal drainage. ABDOMEN: Soft. Nondistended. nontender NEUROLOGIC: Alert and oriented. Cranial nerves II through XII grossly intact. LABORATORY DATA: WBC is 8.6 hemoglobin 17.5 sodium is 142 creatinine 0.82 Glucose 73 magnesium 1.8 total bili 1.6 LFTs normal troponin negative Albumin 5.4 IMAGING: Acute abdominal series x-ray shows no acute findings the chest abdomen and pelvis ASSESSMENT: 1. Dysphagia, patient is status post EGD with dilation of the GE junction stricture on 02/04/2021. 2. Post procedure swelling likely contributing to patient's continuous vomiting 3. History of prior EGDs with dilation 4. History of recurrent hiatal hernia in which patient was to be scheduled for revision of hiatal hernia next week outpatient PLAN: -Patient is still unable to tolerate a liquid tray. Therefore, he will be admitted to the hospital. -Continue IV Decadron 4 mg IV every 4 hours to help with post surgical swelling -Continue with Sips of Clears -Continue IV fluids for hydration -Continue pain medication as needed -GI prophylaxis Protonix and DVT prophylaxis subcu heparin Physician Electric Furnace Operator note has been reviewed by physician. Signing provider agrees with the documented findings, assessment, and plan of care. Past Medical History Past Medical History: GERD/Reflux Additional Past Medical History / Comment(s): kidney stones, hiatial hernia History of Any Multi-Drug Resistant Organisms: None Reported Past Surgical History: Hernia Repair Additional Past Surgical History / Comment(s): bronchoscopy, esophageal dilation Past Anesthesia/Blood Transfusion Reactions: Previous Problems w/ Anesthesia, Motion Sickness Additional Past Anesthesia/Blood Transfusion Reaction / Comment(s): "takes long time to shake out of it -blood pressure drops very low during the middle of the night after procedure" suggested by PCP that be monitored possible overnight in observation Past Psychological History: No Psychological Hx Reported Smoking Status: Never smoker Past Alcohol Use History: None Reported Past Drug Use History: None Reported - Past Family History Mother Family Medical History: Fibromyalgia Medications and Allergies Home Medications Medication Instructions Recorded Confirmed Type No Known Home Medications 02/05/21 02/05/21 History Allergies Allergy/AdvReac Type Severity Reaction Status Date / Time acetaminophen [From Tylenol] Allergy Rash/Hives Verified 02/05/21 07:03 cephalexin [From Keflex] Allergy Rash/Hives Verified 02/05/21 07:03 Penicillins Allergy Rash/Hives Verified 02/05/21 07:03 Surgical - Exam Vital Signs Temp Pulse Resp BP Pulse Ox 98.2 F 81 20 120/80 97 02/04/21 23:45 02/04/21 23:45 02/04/21 23:45 02/04/21 23:45 02/04/21 23:45 Results - Labs 02/04/21 23:57 02/04/21 23:57 Abnormal Lab Results - Last 24 Hours (Table) 02/04/21 Range/Units 23:57 Carbon Dioxide 21 L (22-30) mmol/L Glucose 73 L (74-99) mg/dL Total Bilirubin 1.6 H (0.2-1.3) mg/dL Creatine Kinase 54 L (55-170) U/L Total Protein 8.4 H (6.3-8.2) g/dL Albumin 5.4 H (3.5-5.0) g/dL Diabetes panel 02/04/21 Range/Units 23:57 Sodium 142 (137-145) mmol/L Potassium 4.0 (3.5-5.1) mmol/L Chloride 102 (98-107) mmol/L Carbon Dioxide 21 L (22-30) mmol/L BUN 13 (9-20) mg/dL Creatinine 0.82 (0.66-1.25) mg/dL Glucose 73 L (74-99) mg/dL Calcium 10.0 (8.4-10.2) mg/dL AST 31 (17-59) U/L ALT 34 (4-49) U/L Alkaline Phosphatase 49 (38-126) U/L Total Protein 8.4 H (6.3-8.2) g/dL Albumin 5.4 H (3.5-5.0) g/dL Calcium panel 02/04/21 Range/Units 23:57 Calcium 10.0 (8.4-10.2) mg/dL Phosphorus 3.2 (2.5-4.5) mg/dL Albumin 5.4 H (3.5-5.0) g/dL Pituitary panel 02/04/21 Range/Units 23:57 Sodium 142 (137-145) mmol/L Potassium 4.0 (3.5-5.1) mmol/L Chloride 102 (98-107) mmol/L Carbon Dioxide 21 L (22-30) mmol/L BUN 13 (9-20) mg/dL Creatinine 0.82 (0.66-1.25) mg/dL Glucose 73 L (74-99) mg/dL Calcium 10.0 (8.4-10.2) mg/dL Adrenal panel 02/04/21 Range/Units 23:57 Sodium 142 (137-145) mmol/L Potassium 4.0 (3.5-5.1) mmol/L Chloride 102 (98-107) mmol/L Carbon Dioxide 21 L (22-30) mmol/L BUN 13 (9-20) mg/dL Creatinine 0.82 (0.66-1.25) mg/dL Glucose 73 L (74-99) mg/dL Calcium 10.0 (8.4-10.2) mg/dL Total Bilirubin 1.6 H (0.2-1.3) mg/dL AST 31 (17-59) U/L ALT 34 (4-49) U/L Alkaline Phosphatase 49 (38-126) U/L Total Protein 8.4 H (6.3-8.2) g/dL Albumin 5.4 H (3.5-5.0) g/dL
[2021-02-05] MEDS: HEPARIN SODIUM,PORCINE/PF 5,000 UNIT/0.5 ML SYRINGE SQ SCH (19:49)
[2021-02-06] MEDS: DEXAMETHASONE SOD PHOSPHATE 4 MG/ML 1 ML VIAL IV SCH ×6 (03:19→23:49)
[2021-02-06] MEDS: HEPARIN SODIUM,PORCINE/PF 5,000 UNIT/0.5 ML SYRINGE SQ SCH ×2 (09:29→20:19)
[2021-02-06] MEDS: PANTOPRAZOLE 40 MG/10 ML VIAL IV SCH (09:29)
[2021-02-06] MEDS: MORPHINE SULFATE 4 MG/ML SYRINGE IV PRN (09:34)
--- NOTE | 2021-02-06 09:59 | P.PN ---
Subjective Progress Note Date: 02/06/21 Principal diagnosis: Dysphagia Patient still having issues with dysphagia and bringing up saliva. Mild discomfort when he drinks. Otherwise no pain. He is afebrile. Objective - Vital Signs Vital signs: Vital Signs Temp 98.0 F 02/06/21 07:38 Pulse 64 02/06/21 07:38 Resp 16 02/06/21 07:38 BP 106/65 02/06/21 07:38 Pulse Ox 96 02/06/21 07:38 Intake & Output 02/05/21 02/06/21 02/06/21 18:59 06:59 18:59 Intake Total 200 Balance 200 Intake: Intake, IV Titration 200 Amount Dextrose 5%-0.45% NaCl 1, 200 000 ml @ 100 mls/hr IV . Q10H ELIAS Rx#:[id number] Other: # Voids 0 1 # Bowel Movements 0 - Exam Abdomen: Soft, nontender, nondistended - Labs CBC & Chem 7: 02/04/21 23:57 02/04/21 23:57 Assessment and Plan (1) Dysphagia Narrative/Plan: Patient with persistent dysphagia. Continue clear liquids. Patient may be going for revision of his Christopher this week. Current Visit: Yes Status: Acute Code(s): R13.10 - DYSPHAGIA, UNSPECIFIED SNOMED Code(s): 49218637
[2021-02-06 11:47] LABS: Basophils # (A) 0.02 X 10*3/uL (0.00-0.10); Basophils % (A) 0.2 %; Eosinophils # (A) 0.04 X 10*3/uL (0.04-0.35); Eosinophils % (A) 0.4 %; HCT 49.2 % (39.6-50.0); HGB 16.5 g/dL (13.0-17.0); Lymphocytes # (A) 1.25 X 10*3/uL (0.90-5.00); Lymphocytes % (A) 11.7 %; MCH 28.5 pg (27.0-32.0); MCHC 33.5 g/dL (32.0-37.0); MCV 85.1 fL (80.0-97.0); Mean Platelet Volume 9.5 fL (9.5-12.2); Monocytes # (A) 0.24 X 10*3/uL (0.20-1.00); Monocytes % (A) 2.3 %; Neutrophils # (A) 9.06 X 10*3/uL (1.80-7.70); Platelet Count 272 X 10*3/uL (140-440); RBC 5.78 X 10*6/uL (4.40-5.60); RDW 12.8 % (11.5-14.5); WBC 10.65 X 10*3/uL (4.50-10.00)
[2021-02-06 12:02] LABS: African American GFR (CKD) 122.5 (60.0-200.0); Albumin 4.7 g/dL (3.80-4.90); Albumin/Globulin Ratio 1.88 (1.60-3.17); Anion Gap 11.7 mmol/L (4.00-12.00); BUN/Creat Ratio 6.67 Ratio (12.00-20.00); Calcium 10.6 mg/dL (8.7-10.3); Carbon Dioxide 25.3 mmol/L (21.6-31.8); Globulin 2.5 g/dL (1.6-3.3); Non-African American GFR(CKD) 105.7 (60.0-200.0); Potassium 4.1 mmol/L (3.5-5.5); Total Bilirubin 1.3 mg/dL (0.2-1.2); Total Protein 7.2 g/dL (6.2-8.2)
[2021-02-06] MEDS: DEXTROSE 5%-0.45% NACL 1,000 ML IV SCH ×2 (12:59→17:58)
[2021-02-06 13:20] VITALS: BMI 29.7
[2021-02-06] MEDS: LACTATED RINGERS 1,000 ML IV SCH (17:58)
[2021-02-07] MEDS: DEXTROSE 5%-0.45% NACL 1,000 ML IV SCH ×3 (03:47→23:17)
[2021-02-07] MEDS: DEXAMETHASONE SOD PHOSPHATE 4 MG/ML 1 ML VIAL IV SCH ×6 (03:47→23:16)
[2021-02-07] MEDS: PANTOPRAZOLE 40 MG/10 ML VIAL IV SCH (08:58)
[2021-02-07] MEDS: HEPARIN SODIUM,PORCINE/PF 5,000 UNIT/0.5 ML SYRINGE SQ SCH ×2 (08:58→19:36)
[2021-02-07] MEDS: MORPHINE SULFATE 4 MG/ML SYRINGE IV PRN (08:59)
[2021-02-07] MEDS: ONDANSETRON 4 MG/2 ML VIAL IVP PRN (08:59)
--- NOTE | 2021-02-07 10:06 | P.PN ---
Subjective Progress Note Date: 02/07/21 Principal diagnosis: Dysphagia Patient still having dysphagia issues. He is tolerating small amounts of ice chips and small sips of ensure. Denies pain today. He is afebrile. Objective - Vital Signs Vital signs: Vital Signs Temp 97.8 F 02/07/21 08:00 Pulse 63 02/07/21 08:00 Resp 18 02/07/21 08:00 BP 97/61 02/07/21 08:00 Pulse Ox 95 02/07/21 08:00 Intake & Output 02/06/21 02/07/21 02/07/21 18:59 06:59 18:59 Weight 99.337 kg Other: # Voids 3 1 - Exam Abdomen: Soft, nontender, nondistended - Labs CBC & Chem 7: 02/06/21 06:56 02/06/21 06:56 Labs: Abnormal Lab Results - Last 24 Hours (Table) 02/06/21 02/06/21 Range/Units 06:56 06:56 WBC 10.65 H (4.50-10.00) X 10*3/uL RBC 5.78 H (4.40-5.60) X 10*6/uL Neutrophils # 9.06 H (1.80-7.70) X 10*3/uL BUN 6.0 L (9.0-27.0) mg/dL BUN/Creatinine Ratio 6.67 L (12.00-20.00) Ratio Glucose 155 H (70-110) mg/dL Calcium 10.6 H (8.7-10.3) mg/dL Total Bilirubin 1.3 H (0.2-1.2) mg/dL Assessment and Plan (1) Dysphagia Narrative/Plan: Patient with persistent dysphagia. Continue clear liquids. Will make nothing by mouth after midnight encase intervention tomorrow is considered. Current Visit: Yes Status: Acute Code(s): R13.10 - DYSPHAGIA, UNSPECIFIED SNOMED Code(s): 63886138
[2021-02-07 12:39] LABS: Basophils # (A) 0.03 X 10*3/uL (0.00-0.10); Basophils % (A) 0.1 %; Eosinophils # (A) 0 X 10*3/uL (0.04-0.35); Eosinophils % (A) 0 %; HCT 49.1 % (39.6-50.0); HGB 16.2 g/dL (13.0-17.0); Lymphocytes # (A) 1.23 X 10*3/uL (0.90-5.00); MCH 28.5 pg (27.0-32.0); MCV 86.3 fL (80.0-97.0); Mean Platelet Volume 10.2 fL (9.5-12.2); Monocytes # (A) 1.01 X 10*3/uL (0.20-1.00); Monocytes % (A) 4.9 %; Neutrophils # (A) 18.11 X 10*3/uL (1.80-7.70); Neutrophils % (A) 88.5 %; Platelet Count 275 X 10*3/uL (140-440); RBC 5.69 X 10*6/uL (4.40-5.60); RDW 13.1 % (11.5-14.5); WBC 20.49 X 10*3/uL (4.50-10.00)
[2021-02-07 12:47] LABS: African American GFR (CKD) 128.6 (60.0-200.0); Albumin 4.3 g/dL (3.80-4.90); Albumin/Globulin Ratio 1.87 (1.60-3.17); Anion Gap 10.5 mmol/L (4.00-12.00); BUN/Creat Ratio 12.5 Ratio (12.00-20.00); Calcium 9.4 mg/dL (8.7-10.3); Carbon Dioxide 23.5 mmol/L (21.6-31.8); Globulin 2.3 g/dL (1.6-3.3); Potassium 3.8 mmol/L (3.5-5.5); Total Bilirubin 1.2 mg/dL (0.2-1.2); Total Protein 6.6 g/dL (6.2-8.2)
--- NOTE | 2021-02-07 14:29 | XR ---
EXAMINATION TYPE: XR chest 2V DATE OF EXAM: 02/07/2021 COMPARISON: 11/03/2019 HISTORY: Short of breath. Cough. TECHNIQUE: FINDINGS: Heart and mediastinum are normal. Lungs are clear. Diaphragm is normal. Bony thorax is inta ct. There are no hilar masses. IMPRESSION: Normal chest. No change.
[2021-02-08] MEDS: DEXAMETHASONE SOD PHOSPHATE 4 MG/ML 1 ML VIAL IV SCH ×6 (03:44→23:39)
[2021-02-08] MEDS: PANTOPRAZOLE 40 MG/10 ML VIAL IV SCH (08:09)
[2021-02-08] MEDS: DEXTROSE 5%-0.45% NACL 1,000 ML IV SCH ×2 (08:09→20:12)
[2021-02-08] MEDS: HEPARIN SODIUM,PORCINE/PF 5,000 UNIT/0.5 ML SYRINGE SQ SCH ×3 (08:09→20:12)
[2021-02-08] MEDS ORDERED: LORazepam 2 MG/ML INJ IV STA (10:03)
[2021-02-08 11:20] LABS: Basophils # (A) 0.02 X 10*3/uL (0.00-0.10); Basophils % (A) 0.1 %; Eosinophils # (A) 0.01 X 10*3/uL (0.04-0.35); Eosinophils % (A) 0.1 %; HCT 47.1 % (39.6-50.0); Lymphocytes # (A) 1.06 X 10*3/uL (0.90-5.00); Lymphocytes % (A) 7.2 %; MCH 28.8 pg (27.0-32.0); MCV 84.7 fL (80.0-97.0); Mean Platelet Volume 9.9 fL (9.5-12.2); Monocytes # (A) 0.62 X 10*3/uL (0.20-1.00); Monocytes % (A) 4.2 %; Neutrophils # (A) 12.88 X 10*3/uL (1.80-7.70); Neutrophils % (A) 87.9 %; Platelet Count 275 X 10*3/uL (140-440); RBC 5.56 X 10*6/uL (4.40-5.60); RDW 13.1 % (11.5-14.5); WBC 14.66 X 10*3/uL (4.50-10.00)
[2021-02-08] MEDS ORDERED: IV FLUID CONTINUATION 500 ML IV ONE (11:27)
[2021-02-08 11:54] LABS: African American GFR (CKD) 122.5 (60.0-200.0); Albumin 4.1 g/dL (3.80-4.90); Albumin/Globulin Ratio 1.86 (1.60-3.17); Anion Gap 13.5 mmol/L (4.00-12.00); BUN/Creat Ratio 13.33 Ratio (12.00-20.00); Calcium 9.4 mg/dL (8.7-10.3); Carbon Dioxide 21.5 mmol/L (21.6-31.8); Globulin 2.2 g/dL (1.6-3.3); Non-African American GFR(CKD) 105.7 (60.0-200.0); Total Bilirubin 1.3 mg/dL (0.3-1.2); Total Protein 6.3 g/dL (6.2-8.2)
[2021-02-08] MEDS ORDERED: ONDANSETRON 4 MG/2 ML VIAL IVP ONE (12:04)
[2021-02-08] MEDS ORDERED: CLINDAMYCIN 600 MG in DEXTROSE 5% IN WATER 50 ML IVPB STA ×2 (12:13)
[2021-02-08] MEDS ORDERED: KETAMINE 10 MG/ML 20 ML VIAL ONE (12:24)
[2021-02-08] MEDS ORDERED: fentaNYL (PF) 50 MCG/ML 2 ML AMP ONE (12:24)
[2021-02-08] MEDS ORDERED: NEOSTIGMINE 1 MG/ML 10 ML VIAL ONE (12:24)
[2021-02-08] MEDS ORDERED: LIDOCAINE 1% INJ 10MG/ML (20 ML MDV) ONE (12:24)
[2021-02-08] MEDS ORDERED: MORPHINE SULFATE (PF) 0.3 MG/0.3 ML SYR ONE (12:24)
[2021-02-08] MEDS ORDERED: KETOROLAC 15 MG/ML 1 ML VIAL ONE (12:24)
[2021-02-08] MEDS ORDERED: GLYCOPYRROLATE 0.2 MG/ML 2 ML VIAL ONE (12:24)
[2021-02-08] MEDS ORDERED: MIDAZOLAM 2 MG/2 ML VIAL ONE (12:24)
[2021-02-08] MEDS ORDERED: ROCURONIUM 10 MG/ML (5 ML VIAL) IV ONE (12:24)
[2021-02-08] MEDS ORDERED: SUCCINYLCHOLINE CHLORIDE 100 MG/5 ML SYR IV ONE (12:24)
[2021-02-08] MEDS ORDERED: PROPOFOL 10 MG/ML 20 ML VIAL IV ONE (12:24)
[2021-02-08] MEDS ORDERED: LACTATED RINGERS 1,000 ML IV ONE (12:29)
[2021-02-08] MEDS ORDERED: BUPIVACAINE (PF) 0.25% 30 ML VIAL SQ ONE ×2 (13:03)
[2021-02-08] MEDS: HYDROmorphone 0.5 MG/0.5 ML SYRINGE IVP ONE ×3 (14:06→14:23)
[2021-02-08] MEDS: ONDANSETRON 4 MG/2 ML VIAL IVP PRN (16:42)
[2021-02-08] MEDS: MORPHINE SULFATE 4 MG/ML SYRINGE IV PRN ×2 (17:04→23:37)
[2021-02-09] MEDS: DEXAMETHASONE SOD PHOSPHATE 4 MG/ML 1 ML VIAL IV SCH ×6 (03:49→23:47)
[2021-02-09] MEDS: MORPHINE SULFATE 4 MG/ML SYRINGE IV PRN ×3 (03:56→20:06)
[2021-02-09] MEDS: DEXTROSE 5%-0.45% NACL 1,000 ML IV SCH ×2 (05:54→08:08)
[2021-02-09] MEDS: ONDANSETRON 4 MG/2 ML VIAL IVP PRN (08:06)
[2021-02-09] MEDS: PANTOPRAZOLE 40 MG/10 ML VIAL IV SCH (08:06)
[2021-02-09] MEDS: HEPARIN SODIUM,PORCINE/PF 5,000 UNIT/0.5 ML SYRINGE SQ SCH ×2 (08:06→20:06)
[2021-02-09 08:29] LABS: Basophils % (A) 0 %; Eosinophils # (A) 0.1 k/uL (0-0.7); Eosinophils % (A) 1 %; HCT 46.7 % (39.0-53.0); HGB 16.5 gm/dL (13.0-17.5); Lymphocytes # (A) 0.7 k/uL (1.0-4.8); Lymphocytes % (A) 6 %; MCH 29.6 pg (25.0-35.0); MCHC 35.3 g/dL (31.0-37.0); MCV 83.8 fL (80.0-100.0); Mean Platelet Volume 6.7; Monocytes # (A) 0.6 k/uL (0-1.0); Monocytes % (A) 5 %; Neutrophils # (A) 10.6 k/uL (1.3-7.7); Neutrophils % (A) 88 %; Platelet Count 284 k/uL (150-450); RBC 5.58 m/uL (4.30-5.90); RDW 12.9 % (11.5-15.5); WBC 12.1 k/uL (3.8-10.6)
[2021-02-09] MEDS: KETOROLAC 15 MG/ML 1 ML VIAL IVP SCH ×3 (10:47→23:47)
--- NOTE | 2021-02-09 13:08 | P.PN ---
Subjective Progress Note Date: 02/09/21 CHIEF COMPLAINT: Dysphagia HISTORY OF PRESENT ILLNESS: Patient is status post laparoscopic lysis of adhes ion. Patient currently on a clear liquid diet. He was able to drink about 4-5 ounces of his broth last night with no vomiting. He denies any flatus or BM. He does report some hesitancy with urinating and does not feel like he is emptying bladder completely. Awaiting bladder scan results. He denies any flatus or BM. He does report that his pain is not controlled. Pain medications are not lasting long enough. He Is currently on a clear liquid diet. Afebrile. WBC 12.1. PHYSICAL EXAM: VITAL SIGNS: Reviewed. GENERAL: Well-developed in no acute distress. HEENT: No sclera icterus. Extraocular movements grossly intact. Moist buccal mucosa. Head is atraumatic, normocephalic. ABDOMEN: Soft. Nondistended. Incision site clean dry and intact NEUROLOGIC: Alert and oriented. Cranial nerves II through XII grossly intact. ASSESSMENT: 1. Dysphagia status post laparoscopic lysis of adhesions PLAN: -Continue clear liquid diet -Add Toradol for pain control -Add Flomax for possible urinary retention -Encouraged patient to use incentive spirometer and to ambulate -Check bladder scan for possible urinary retention -GI prophylaxis Protonix and DVT prophylaxis subcu heparin Physician Sand Mill Operator Facing Sand note has been reviewed by physician. Signing provider agrees with the documented findings, assessment, and plan of care. Objective - Vital Signs Vital signs: Vital Signs Temp 98.6 F 02/09/21 08:00 Pulse 62 02/09/21 08:06 Resp 18 02/09/21 08:06 BP 121/74 02/09/21 08:00 Pulse Ox 98 02/09/21 08:00 Intake & Output 02/08/21 02/09/21 02/09/21 18:59 06:59 18:59 Intake Total 1204 Output Total 5 2200 600 Balance 1199 -2200 -600 Weight 99.337 kg Intake: IV 804 Intake, IV Titration 400 Amount Dextrose 5%-0.45% NaCl 1, 400 000 ml @ 100 mls/hr IV . Q10H ELIAS Rx#:[id number] Output: Urine 2200 600 Estimated Blood Loss 5 Other: # Voids 2 - Labs CBC & Chem 7: 02/09/21 08:16 02/08/21 06:51 Labs: Abnormal Lab Results - Last 24 Hours (Table) 02/09/21 Range/Units 08:16 WBC 12.1 H (3.8-10.6) k/uL Neutrophils # 10.6 H (1.3-7.7) k/uL Lymphocytes # 0.7 L (1.0-4.8) k/uL
[2021-02-09] MEDS: TAMSULOSIN 0.4 MG CAP.ER.24H PO SCH (14:57)
[2021-02-10 02:07] VITALS: RESP 16
[2021-02-10] MEDS: MORPHINE SULFATE 4 MG/ML SYRINGE IV PRN (02:25)
[2021-02-10] MEDS: DEXTROSE 5%-0.45% NACL 1,000 ML IV SCH ×2 (02:26→09:36)
[2021-02-10] MEDS: DEXAMETHASONE SOD PHOSPHATE 4 MG/ML 1 ML VIAL IV SCH ×3 (05:03→12:20)
[2021-02-10] MEDS: KETOROLAC 15 MG/ML 1 ML VIAL IVP SCH ×2 (05:04→12:16)
[2021-02-10 07:42] VITALS: BP 110/68; PULSE 50; TEMP 97.9
[2021-02-10 08:34] LABS: Basophils # (A) 0.1 k/uL (0-0.2); Basophils % (A) 0 %; Eosinophils # (A) 0.1 k/uL (0-0.7); Eosinophils % (A) 1 %; HCT 48.8 % (39.0-53.0); HGB 16.8 gm/dL (13.0-17.5); Lymphocytes # (A) 0.6 k/uL (1.0-4.8); Lymphocytes % (A) 6 %; MCH 29.2 pg (25.0-35.0); MCHC 34.5 g/dL (31.0-37.0); MCV 84.6 fL (80.0-100.0); Mean Platelet Volume 6.7; Monocytes # (A) 0.6 k/uL (0-1.0); Monocytes % (A) 5 %; Neutrophils # (A) 9.9 k/uL (1.3-7.7); Neutrophils % (A) 87 %; Platelet Count 262 k/uL (150-450); RBC 5.77 m/uL (4.30-5.90); RDW 12.9 % (11.5-15.5); WBC 11.3 k/uL (3.8-10.6)
[2021-02-10 08:48] LABS: African American GFR (CKD) >90 (>60 ml/min/1.73 sqM); Anion Gap 9 mmol/L; Blood Urea Nitrogen 14 mg/dL (9-20); Calcium 9.6 mg/dL (8.4-10.2); Carbon Dioxide 27 mmol/L (22-30); Chloride 102 mmol/L (98-107); Glucose 130 mg/dL (74-99); Non-African American GFR(CKD) >90 (>60 ml/min/1.73 sqM); Potassium 3.8 mmol/L (3.5-5.1); Sodium 138 mmol/L (137-145)
[2021-02-10] MEDS: PANTOPRAZOLE 40 MG/10 ML VIAL IV SCH (09:07)
[2021-02-10] MEDS: HEPARIN SODIUM,PORCINE/PF 5,000 UNIT/0.5 ML SYRINGE SQ SCH (09:14)
[2021-02-10] MEDS: TAMSULOSIN 0.4 MG CAP.ER.24H PO SCH (09:14)
[2021-02-10] MEDS: ONDANSETRON 4 MG/2 ML VIAL IVP PRN (12:10)
--- NOTE | 2021-02-10 13:00 | P.DS ---
Providers Date of admission: 02/08/21 11:55 Expected date of discharge: 02/10/21 Attending physician: Singh Adair Primary care physician: Son Woody Hospital Course: Discharge diagnosis 1. Dysphagia status post laparoscopic lysis of adhesions Hospital course This is a 40-year-old male with a known history of Christopher fundoplication in March 2020. Patient reports since that procedure he has had difficulty with swallowing and recurrent episodes of vomiting after eating. He has had unintentional weight loss of over 20 pounds. He has had 3 EGDs with dilation. Last EGD with dilation was yesterday 02/04/2021. 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 He returned home and was unable to keep anything down. He feels that as he swallows things get stuck in the center of his chest and then he vomits them back up. He will even vomit his saliva. Patient had acute abdominal x-ray series which was negative. He has been started on IV Decadron. He is given IV fluids and fluid bolus in the ER due to dehydration. Patient is status post laparoscopic lysis of adhesions for dysphagia. Patient is tolerating a clear liquid diet. He has had no further nausea or vomiting. His pain is controlled. He is up and ambulating. He is passing gas and is urinating without difficulty. Patient is stable for discharge. Please refer to chart for any further details. Physician Optometric Assistant note has been reviewed by physician. Signing provider agrees with the documented findings, assessment, and plan of care. Patient Condition at Discharge: Stable Plan - Discharge Summary Discharge Rx Participant: No New Discharge Prescriptions: No Action No Known Home Medications Discharge Medication List No Known Home Medications 02/05/21 [History] Follow up Appointment(s)/Referral(s): Son Woody MD [Primary Care Provider] - 1-2 days Singh Adair MD [STAFF PHYSICIAN] - 2 Weeks Activity/Diet/Wound Care/Special Instructions: No lifting over 10 pounds You may shower. No soaking or tub baths for 2 weeks Very light activity until you are reevaluated at your follow up appointment with your surgeon Patient continues the Motrin prescription he has at home as needed for pain Discharge Disposition: HOME SELF-CARE
--- NOTE | 2021-02-16 13:07 | P.OP ---
Date of Procedure: 02/08/21 Preoperative Diagnosis: Dysphagia Postoperative Diagnosis: Dysphagia Procedure(s) Performed: Revision of hiatal hernia Anesthesia: YADI Surgeon: Singh Adair Pathology: none sent Condition: stable Disposition: PACU Description of Procedure: The patient was placed on the operating table in the supine position. The patient received general anesthesia. And was placed in dorsal lithotomy position. The patient was prepped and draped in the usual sterile fashion. The skin incision sites were anesthetized with 1% local Xylocaine. The skin was incised in the left periumbilical area and then using a blade less 5 mm trocar under direct visualization panel cavity was entered. After adequate insufflation the laparoscope was then placed into the peritoneal cavity. Next a 5 mm trochars placed in the right epigastric position. Another 5 millimeter trocar the right lateral position. Another 5 millimeter trocar in the left lateral position a 5 mm trocar is placed in the left epigastric position. And then the initial 5 mm trocar was exchanged for a 10 mm trocar. The left lateral lobe liver was retracted. Stomach was visualized. The fundoplication wrap was measured is. The sutures were cut from the fundal placed wrap and the wrap was undone. There was no unsteady obstruction of the GE junction. This point the trochars withdrawn. Skin was closed interrupted 3-0 Monocryl suture.
== END 2021-02-10 14:02 | disposition home or self-care (01) | DRG 328 ==
LOC: EC 22:13 → 4SSUR 02-05 00:31 → OBSVTOIN 02-08 11:55
PROVIDERS: ADMIT Surgery; ATTEND Surgery
PROC: 0BQT4ZZ Repair Diaphragm, Percutaneous Endoscopic Approach (ICD-10-PCS; principal; 2021-02-08 10:10)
DX: K91.89 Other postprocedural complications and disorders of digestive system (principal); K44.9 Diaphragmatic hernia without obstruction or gangrene; R13.10 Dysphagia, unspecified; R11.2 Nausea with vomiting, unspecified; K21.9 Gastro-esophageal reflux disease without esophagitis; R63.4 Abnormal weight loss; E86.0 Dehydration; Z87.442 Personal history of urinary calculi; Z79.82 Long term (current) use of aspirin; Z88.0 Allergy status to penicillin; Z88.6 Allergy status to analgesic agent; Y83.8 Other surgical procedures as the cause of abnormal reaction of the patient, or of later complication, without mention of misadventure at the time of the procedure
CPT/HCPCS: 71046; 74022; 80048; 80053; 82550; 83735; 84100; 84484; 85025; 85610; 85730; 93005; 99285

== ENCOUNTER 2021-02-19 19:58 | Observation (INO) | payer BC ==
[2021-02-19] MEDS ORDERED: SODIUM CHLORIDE 0.9% 500 ML 500 ML IV STA (20:43)
--- NOTE | 2021-02-19 21:03 | XR ---
EXAMINATION TYPE: XR chest 2V DATE OF EXAM: 02/19/2021 COMPARISON: 02/07/2021 HISTORY: Chest pain TECHNIQUE: FINDINGS: Heart and mediastinum are normal. Lungs are clear. Diaphragm is normal. Bony thorax is inta ct. There are chest leads. Pulmonary vascularity is normal. IMPRESSION: Normal chest. No change.
[2021-02-19 21:11] LABS: Potassium 4.1 mmol/L (3.5-5.1)
[2021-02-19 21:12] LABS: ALT 139 U/L (4-49); AST 47 U/L (17-59); African American GFR (CKD) >90 (>60 ml/min/1.73 sqM); Albumin 4.6 g/dL (3.5-5.0); Alkaline Phosphatase 42 U/L (38-126); Anion Gap 12 mmol/L; Blood Urea Nitrogen 15 mg/dL (9-20); Calcium 9.9 mg/dL (8.4-10.2); Carbon Dioxide 24 mmol/L (22-30); Chloride 103 mmol/L (98-107); Glucose 87 mg/dL (74-99); Lipase 507 U/L (23-300); Magnesium 2.1 mg/dL (1.6-2.3); Non-African American GFR(CKD) >90 (>60 ml/min/1.73 sqM); Sodium 139 mmol/L (137-145); Total Bilirubin 1.6 mg/dL (0.2-1.3); Total Protein 7.2 g/dL (6.3-8.2)
[2021-02-19 21:23] LABS: Basophils # (A) 0.1 k/uL (0-0.2); Basophils % (A) 1 %; Eosinophils # (A) 0.2 k/uL (0-0.7); Eosinophils % (A) 2 %; HCT 50.2 % (39.0-53.0); HGB 16.8 gm/dL (13.0-17.5); Lymphocytes % (A) 25 %; MCH 28.8 pg (25.0-35.0); MCHC 33.4 g/dL (31.0-37.0); MCV 86.2 fL (80.0-100.0); Mean Platelet Volume 7.2; Monocytes # (A) 0.9 k/uL (0-1.0); Monocytes % (A) 7 %; Neutrophils # (A) 7.6 k/uL (1.3-7.7); Neutrophils % (A) 64 %; Platelet Count 243 k/uL (150-450); RBC 5.83 m/uL (4.30-5.90); RDW 13.7 % (11.5-15.5)
[2021-02-19 21:33] LABS: Partial Thromboplastin Time 23.5 sec (22.0-30.0); Prothrombin Time 10.3 sec (9.0-12.0)
[2021-02-19 21:47] LABS: D-Dimer 1.29 mg/L FEU (<0.60)
--- NOTE | 2021-02-19 21:53 | ED ---
General Adult HPI - General Chief complaint: Chest Pain Stated complaint: High Blood Pressure Time Seen by Provider: 02/19/21 20:21 Source: patient, RN notes reviewed, old records reviewed Mode of arrival: ambulatory Limitations: no limitations - History of Present Illness Initial comments: 40-year-old male presenting with palpitations, chest discomfort. Patient has had symptoms for the past several days. Patient denies associated dyspnea. Denies nausea vomiting. He does feel somewhat anxious. He had recent upper scopic abdominal surgery. No lower extremity pain or swelling. No history of DVT or PE. No history of CAD. - Related Data Previous Rx's Medication Instructions Recorded Ondansetron Odt [Zofran Odt] 4 mg PO Q8HR PRN #9 tab 02/10/21 Allergies Allergy/AdvReac Type Severity Reaction Status Date / Time acetaminophen [From Tylenol] Allergy Rash/Hives Verified 02/19/21 20:35 cephalexin [From Keflex] Allergy Rash/Hives Verified 02/19/21 20:35 Penicillins Allergy Rash/Hives Verified 02/19/21 20:35 Review of Systems ROS Statement: Those systems with pertinent positive or pertinent negative responses have been documented in the HPI. ROS Other: All systems not noted in ROS Statement are negative. Past Medical History Past Medical History: GERD/Reflux Additional Past Medical History / Comment(s): kidney stones, hiatial hernia History of Any Multi-Drug Resistant Organisms: None Reported Past Surgical History: Hernia Repair Additional Past Surgical History / Comment(s): bronchoscopy, esophageal dilation Past Anesthesia/Blood Transfusion Reactions: Previous Problems w/ Anesthesia, Motion Sickness Additional Past Anesthesia/Blood Transfusion Reaction / Comment(s): "takes long time to shake out of it -blood pressure drops very low during the middle of the night after procedure" suggested by PCP that be monitored possible overnight in observation Past Psychological History: No Psychological Hx Reported Smoking Status: Never smoker Past Alcohol Use History: None Reported Past Drug Use History: None Reported - Past Family History Mother Family Medical History: Fibromyalgia General Exam Limitations: no limitations General appearance: alert, in no apparent distress Head exam: Present: atraumatic, normocephalic Eye exam: Present: normal appearance, PERRL ENT exam: Present: mucous membranes dry Neck exam: Present: normal inspection. Absent: tenderness, meningismus Respiratory exam: Present: normal lung sounds bilaterally. Absent: respiratory distress, wheezes Cardiovascular Exam: Present: normal rhythm, tachycardia GI/Abdominal exam: Present: soft, distended, other (Surgical incisions are well- healed mild ecchymosis). Absent: tenderness, guarding, rebound Extremities exam: Present: normal inspection, normal capillary refill. Absent: pedal edema, calf tenderness Neurological exam: Present: alert, oriented X3, CN II-XII intact. Absent: motor sensory deficit Psychiatric exam: Present: anxious Skin exam: Present: warm, dry, intact. Absent: cyanosis, diaphoretic Course Vital Signs 02/19/21 02/19/21 02/19/21 20:15 20:21 21:00 Temperature 98.1 F Pulse Rate 139 H 79 Pulse Rate [ [address] ] Respiratory 20 18 Rate Blood Pressure 103/68 O2 Sat by Pulse 98 Oximetry EKG Findings - EKG Comments: EKG Findings:: EKG: Sinus tachycardia, rate of 102, MS interval 142, QRS duration 82, QTC 437, no ST segment elevation Medical Decision Making - Medical Decision Making 40-year-old male with chest pain and palpitations. Recent abdominal surgery. Patient was initially tachycardic there is concern for pulmonary embolism, CT angiography is performed, negative for PE. Patient has mild leukocytosis. Normal electrolytes, mild elevation in bilirubin which is consistent with prior laboratory testing. He is having some atypical chest pain however is persistent. He will be kept in observation for chest pain rule out. Neurology placed on consult. Echo has been ordered. - Lab Data Result diagrams: 02/19/21 20:46 02/19/21 20:46 Lab Results 02/19/21 02/19/21 02/19/21 Range/Units 20:46 20:46 20:46 WBC 12.0 H (3.8-10.6) k/uL RBC 5.83 (4.30-5.90) m/uL Hgb 16.8 (13.0-17.5) gm/dL Hct 50.2 (39.0-53.0) % MCV 86.2 (80.0-100.0) fL MCH 28.8 (25.0-35.0) pg MCHC 33.4 (31.0-37.0) g/dL RDW 13.7 (11.5-15.5) % Plt Count 243 (150-450) k/uL MPV 7.2 Neutrophils % 64 % Lymphocytes % 25 % Monocytes % 7 % Eosinophils % 2 % Basophils % 1 % Neutrophils # 7.6 (1.3-7.7) k/uL Lymphocytes # 3.0 (1.0-4.8) k/uL Monocytes # 0.9 (0-1.0) k/uL Eosinophils # 0.2 (0-0.7) k/uL Basophils # 0.1 (0-0.2) k/uL PT 10.3 (9.0-12.0) sec INR 1.0 (<1.2) APTT 23.5 (22.0-30.0) sec D-Dimer 1.29 H (<0.60) mg/L FEU Sodium 139 (137-145) mmol/L Potassium 4.1 (3.5-5.1) mmol/L Chloride 103 (98-107) mmol/L Carbon Dioxide 24 (22-30) mmol/L Anion Gap 12 mmol/L BUN 15 (9-20) mg/dL Creatinine 0.81 (0.66-1.25) mg/dL Est GFR (CKD-EPI)AfAm >90 (>60 ml/min/1.73 sqM) Est GFR (CKD-EPI)NonAf >90 (>60 ml/min/1.73 sqM) Glucose 87 (74-99) mg/dL Calcium 9.9 (8.4-10.2) mg/dL Magnesium 2.1 (1.6-2.3) mg/dL Total Bilirubin 1.6 H (0.2-1.3) mg/dL AST 47 (17-59) U/L ALT 139 H (4-49) U/L Alkaline Phosphatase 42 (38-126) U/L Troponin I (0.000-0.034) ng/mL Total Protein 7.2 (6.3-8.2) g/dL Albumin 4.6 (3.5-5.0) g/dL Lipase 507 H (23-300) U/L 02/19/21 Range/Units 20:46 WBC (3.8-10.6) k/uL RBC (4.30-5.90) m/uL Hgb (13.0-17.5) gm/dL Hct (39.0-53.0) % MCV (80.0-100.0) fL MCH (25.0-35.0) pg MCHC (31.0-37.0) g/dL RDW (11.5-15.5) % Plt Count (150-450) k/uL MPV Neutrophils % % Lymphocytes % % Monocytes % % Eosinophils % % Basophils % % Neutrophils # (1.3-7.7) k/uL Lymphocytes # (1.0-4.8) k/uL Monocytes # (0-1.0) k/uL Eosinophils # (0-0.7) k/uL Basophils # (0-0.2) k/uL PT (9.0-12.0) sec INR (<1.2) APTT (22.0-30.0) sec D-Dimer (<0.60) mg/L FEU Sodium (137-145) mmol/L Potassium (3.5-5.1) mmol/L Chloride (98-107) mmol/L Carbon Dioxide (22-30) mmol/L Anion Gap mmol/L BUN (9-20) mg/dL Creatinine (0.66-1.25) mg/dL Est GFR (CKD-EPI)AfAm (>60 ml/min/1.73 sqM) Est GFR (CKD-EPI)NonAf (>60 ml/min/1.73 sqM) Glucose (74-99) mg/dL Calcium (8.4-10.2) mg/dL Magnesium (1.6-2.3) mg/dL Total Bilirubin (0.2-1.3) mg/dL AST (17-59) U/L ALT (4-49) U/L Alkaline Phosphatase (38-126) U/L Troponin I <0.012 (0.000-0.034) ng/mL Total Protein (6.3-8.2) g/dL Albumin (3.5-5.0) g/dL Lipase (23-300) U/L Disposition Clinical Impression: Chest pain Disposition: ADMITTED IP TO THIS [facility] Condition: Stable Is patient prescribed a controlled substance at d/c from ED?: No Referrals: Son Woody MD [Primary Care Provider] - 1-2 days Decision to Admit Reason: Admit from EC Decision Date: 02/19/21 Decision Time: 22:33
--- NOTE | 2021-02-19 22:19 | CT ---
EXAMINATION TYPE: CT angio chest DATE OF EXAM: 02/19/2021 COMPARISON: None HISTORY: elevated d-dimer CT DLP: 484.8 mGycm Automated exposure control for dose reduction was used. CONTRAST: Performed with IV Contrast, patient injected with 73cc mL of Isovue 370. There are 3-D post processed images. The lungs are clear of infiltrate. There is no pleural effusion. There is no pericardial effusion. He art size is normal. There is no mediastinal adenopathy. There are no hilar masses. There is normal contrast opacification of the pulmonary arteries. There are no filling defects. Thora cic aorta is intact. There is no aneurysm or dissection. Upper abdominal soft tissues are intact. The re are small cortical cyst upper pole left kidney. Thoracic vertebra have normal alignment. Disc spaces are fairly normal. There is no compression fract ure. Sternum is intact. The ribs appear intact. IMPRESSION: No evidence of active cardiopulmonary disease. No evidence of pulmonary embolism.
[2021-02-19] MEDS ORDERED: ASPIRIN 325 MG TAB PO STA (22:28)
[2021-02-19] MEDS ORDERED: NALOXONE 0.4 MG/ML 1 ML VIAL IV PRN (22:29)
[2021-02-19] MEDS: SODIUM CHLORIDE 0.9% 1,000 ML IV SCH (22:40)
[2021-02-19] MEDS ORDERED: MELATONIN 5 MG TABLET PO PRN (23:48)
[2021-02-19] MEDS ORDERED: ONDANSETRON 4 MG/2 ML VIAL IVP PRN (23:56)
[2021-02-20] MEDS: LORazepam 1 MG TAB PO PRN ×2 (01:13→19:48)
[2021-02-20 04:34] LABS: Basophils % (A) 1 %; Eosinophils # (A) 0.1 k/uL (0-0.7); Eosinophils % (A) 2 %; HCT 43.2 % (39.0-53.0); HGB 14.8 gm/dL (13.0-17.5); Lymphocytes # (A) 2.1 k/uL (1.0-4.8); Lymphocytes % (A) 25 %; MCH 29.3 pg (25.0-35.0); MCHC 34.3 g/dL (31.0-37.0); MCV 85.6 fL (80.0-100.0); Mean Platelet Volume 6.4; Monocytes # (A) 0.6 k/uL (0-1.0); Monocytes % (A) 7 %; Neutrophils # (A) 5.6 k/uL (1.3-7.7); Neutrophils % (A) 65 %; Platelet Count 197 k/uL (150-450); RBC 5.05 m/uL (4.30-5.90); RDW 13.4 % (11.5-15.5); WBC 8.5 k/uL (3.8-10.6)
[2021-02-20 04:49] LABS: ALT 111 U/L (4-49); AST 37 U/L (17-59); African American GFR (CKD) >90 (>60 ml/min/1.73 sqM); Albumin 3.4 g/dL (3.5-5.0); Alkaline Phosphatase 32 U/L (38-126); Anion Gap 4 mmol/L; Blood Urea Nitrogen 12 mg/dL (9-20); Calcium 9.1 mg/dL (8.4-10.2); Carbon Dioxide 29 mmol/L (22-30); Chloride 106 mmol/L (98-107); Glucose 87 mg/dL (74-99); Magnesium 2.1 mg/dL (1.6-2.3); Non-African American GFR(CKD) >90 (>60 ml/min/1.73 sqM); Potassium 4.3 mmol/L (3.5-5.1); Sodium 139 mmol/L (137-145); Total Bilirubin 1.2 mg/dL (0.2-1.3); Total Protein 5.7 g/dL (6.3-8.2)
[2021-02-20 07:47] VITALS: RESP 18
--- NOTE | 2021-02-20 08:47 | P.CRDCN ---
History of Present Illness Consult date: 02/20/21 History of present illness: HISTORY OF PRESENT ILLNESS: This is a 40-year-old male with a past medical history significant for hypertension. Patient reports a history of a Christopher fundoplication in March 2020. Patient states he has since lost 120 pounds. He states he used to be prescribed atenolol for his blood pressure however he has been weaned off of this secondary to his significant weight loss. Patient states last time he took a dose of atenolol was approximately 2 and half weeks ago. Patient does not follow with a warehouse clerk. We have been asked to see the patient in consultation for chest pain. Patient examined at the bedside. Patient was recently hospitalized and underwent laparoscopic lysis of adhesions with Dr. Adair. Patient reports over the past 2 weeks he has been having palpitations. He states when he puts his hand over his chest he can feel his heart beating fast. He does not feel as though it is beating irregularly. He reports some mild chest discomfort with these palpitations. Patient was found to be mildly tachycardic when he came to the hospital with heart rate around 110. However his heart rate at the time of examination is between 60 and 70. Patient currently denies any chest pain or pressure. He denies shortness of breath. Denies nausea or vomiting. Denies dizziness or lightheadedness. Patient denies thyroid problems. Patient denies smoking. He denies caffeine use. EKG reveals sinus tachycardia with no signs of acute ischemia Chest xray normal chest. Normal heart Laboratory data: WBC 8.5. Hemoglobin 14.8. Platelet count 197. D-dimer 1.29. Sodium 139. Potassium 4.3. BUN 12. Creatinine 0.79. Troponin negative 3. Lipase 507. Current home cardiac medications include none REVIEW OF SYSTEMS: At the time of my exam: CONSTITUTIONAL: Denies fever or chills. HEENT: Denies blurred vision, vision changes, or eye pain. Denies hemoptysis CARDIOVASCULAR: Denies chest pain. Denies orthopnea. Denies PND. Denies palpitations RESPIRATORY: Denies shortness of breath. GASTROINTESTINAL: Denies abdominal pain. Denies nausea or vomiting. HEMATOLOGIC: Denies bleeding disorders. GENITOURINARY: Denies any blood in urine. SKIN: Denies pruitis. Denies rash. PHYSICAL EXAM: VITAL SIGNS: Reviewed. GENERAL: Well-developed in no acute distress. HEENT: Head is normocephalic. Pupils are equal, round. Sclerae anicteric. Mucous membranes of the mouth are moist. Neck supple. No JVD or thyromegaly LUNGS: Respirations even and unlabored. Lungs essentially clear to auscultation bilaterally. HEART: Regular rate and rhythm. S1 and S2 heard. ABDOMEN: Soft. Nondistended. Nontender. EXTREMITIES: Normal range of motion. No clubbing or cyanosis. Peripheral pulses intact. No lower extremity edema NEUROLOGIC: Awake and alert. Oriented x 3. ASSESSMENT: Chest pain, atypical, troponin negative 3 Palpitations Elevated Lipase History of hypertension, recently controlled and taken off atenolol History of laparoscopic Christopher fundoplication, March 2020 Recent hospitalization with laparoscopic lysis of adhesions Weight loss of 120 pounds over the past year PLAN: An acute coronary event has been ruled out Obtain 2-D echo to assess cardiac structure and function Check TSH Continue telemetry monitoring If 2-D echo does not reveal any significant abnormalities, the patient may be discharged home from a cardiac standpoint Begin metoprolol 12.5mg daily per Dr. Camacho He is to follow up with Dr. Camacho No need for event monitor at this time per Dr. Camacho We will sign off. Please reconsult if needed Nurse practitioner note has been reviewed by physician. Signing provider agrees with the documented findings, assessment, and plan of care. Past Medical History Past Medical History: GERD/Reflux Additional Past Medical History / Comment(s): kidney stones, hiatial hernia History of Any Multi-Drug Resistant Organisms: None Reported Past Surgical History: Hernia Repair Additional Past Surgical History / Comment(s): bronchoscopy, esophageal dilation Past Anesthesia/Blood Transfusion Reactions: Previous Problems w/ Anesthesia, Motion Sickness Additional Past Anesthesia/Blood Transfusion Reaction / Comment(s): "takes long time to shake out of it -blood pressure drops very low during the middle of the night after procedure" suggested by PCP that be monitored possible overnight in observation Past Psychological History: No Psychological Hx Reported Smoking Status: Never smoker Past Alcohol Use History: None Reported Past Drug Use History: None Reported - Past Family History Mother Family Medical History: Fibromyalgia Medications and Allergies Home Medications Medication Instructions Recorded Confirmed Type Ondansetron Odt [Zofran Odt] 4 mg PO Q8HR PRN #9 tab 02/10/21 02/19/21 Rx Allergies Allergy/AdvReac Type Severity Reaction Status Date / Time acetaminophen [From Tylenol] Allergy Rash/Hives Verified 02/19/21 20:35 cephalexin [From Keflex] Allergy Rash/Hives Verified 02/19/21 20:35 Penicillins Allergy Rash/Hives Verified 02/19/21 20:35 Physical Exam Vitals: Vital Signs Temp Pulse Pulse Pulse Resp BP BP 02/20/21 07:00 97.8 F 60 18 97/62 02/20/21 02:53 97.6 F 61 15 98/66 02/20/21 01:29 18 02/19/21 23:28 97.7 F 64 18 107/68 02/19/21 22:46 98.7 F 65 16 107/73 02/19/21 22:00 65 16 106/73 02/19/21 21:00 79 18 02/19/21 20:21 96 02/19/21 20:15 98.1 F 139 H 20 103/68 Pulse Ox 02/20/21 07:00 96 02/20/21 02:53 96 02/20/21 01:29 02/19/21 23:28 98 02/19/21 22:46 97 02/19/21 22:00 97 02/19/21 21:00 02/19/21 20:21 02/19/21 20:15 98 Intake and Output 02/19/21 02/20/21 02/20/21 22:59 06:59 14:59 Other: Voiding Method Toilet Urinal # Voids 1 Weight 97.522 kg Results 02/20/21 04:03 02/20/21 04:03 Cardiac Enzymes 02/19/21 02/19/21 02/19/21 Range/Units 20:46 20:46 23:45 AST 47 (17-59) U/L Troponin I <0.012 <0.012 (0.000-0.034) ng/mL 02/20/21 02/20/21 Range/Units 04:03 04:03 AST 37 (17-59) U/L Troponin I <0.012 (0.000-0.034) ng/mL Coagulation 02/19/21 Range/Units 20:46 PT 10.3 (9.0-12.0) sec APTT 23.5 (22.0-30.0) sec CBC 02/19/21 02/20/21 Range/Units 20:46 04:03 WBC 12.0 H 8.5 (3.8-10.6) k/uL RBC 5.83 5.05 (4.30-5.90) m/uL Hgb 16.8 14.8 (13.0-17.5) gm/dL Hct 50.2 43.2 (39.0-53.0) % Plt Count 243 197 (150-450) k/uL Comprehensive Metabolic Panel 02/19/21 02/20/21 Range/Units 20:46 04:03 Sodium 139 139 (137-145) mmol/L Potassium 4.1 4.3 (3.5-5.1) mmol/L Chloride 103 106 (98-107) mmol/L Carbon Dioxide 24 29 (22-30) mmol/L BUN 15 12 (9-20) mg/dL Creatinine 0.81 0.79 (0.66-1.25) mg/dL Glucose 87 87 (74-99) mg/dL Calcium 9.9 9.1 (8.4-10.2) mg/dL AST 47 37 (17-59) U/L ALT 139 H 111 H (4-49) U/L Alkaline Phosphatase 42 32 L (38-126) U/L Total Protein 7.2 5.7 L (6.3-8.2) g/dL Albumin 4.6 3.4 L (3.5-5.0) g/dL Current Medications Generic Name Dose Route Start Last Admin Trade Name Freq PRN Reason Stop Dose Admin Aspirin 325 mg 02/20/21 09:00 Aspirin 325 Mg Tab PO DAILY ELIAS Sodium Chloride 1,000 mls @ 75 mls/hr 02/19/21 22:30 02/19/21 22:40 Saline 0.9% IV 75 mls/hr .[id number] ELIAS Administration Lorazepam 1 mg 02/19/21 22:31 02/20/21 01:13 Lorazepam 1 Mg Tab PO 1 mg Q8HR PRN Administration Anxiety Melatonin 5 mg 02/19/21 23:48 02/20/21 01:10 Melatonin 5 Mg Tablet PO 5 mg HS PRN Administration Insomnia Naloxone HCl 0.2 mg 02/19/21 22:29 Naloxone 0.4 Mg/Ml 1 Ml Vial IV Q2M PRN Opioid Reversal Ondansetron HCl 4 mg 02/19/21 23:56 Ondansetron 4 Mg/2 Ml Vial IVP Q6HR PRN Nausea And Vomiting Intake and Output 02/19/21 02/20/21 02/20/21 22:59 06:59 14:59 Other: Voiding Method Toilet Urinal # Voids 1 Weight 97.522 kg 02/20/21 04:03 02/20/21 04:03
[2021-02-20] MEDS ORDERED: ASPIRIN 325 MG TAB PO SCH (09:00)
[2021-02-20] MEDS: PANTOPRAZOLE 40 MG TABLET PO SCH (09:45)
[2021-02-20] MEDS: ASPIRIN 81 MG PO SCH (09:47)
[2021-02-20] MEDS: SODIUM CHLORIDE 0.9% 1,000 ML IV SCH (09:48)
--- NOTE | 2021-02-20 12:21 | P.HPIM ---
History of Present Illness H&P Date: 02/20/21 Chief Complaint: Palpitations History of present illness This is a 40-year-old patient to manage currently being followed by Jerome HERNANDEZ with past medical history of hypertension, new symptoms location in November 2019, multiple dilatations of esophagus in November, January 28 and February 04. A lysis of lesions on 02/08. Who had a unintentional 120 pound weight loss since November. Patient has been unable to eat and drink. He is currently taking penicillin. Due to the weight loss patient has been taken off his atenolol due to low blood pressure. Patient presented to the emergency room complaining of palpitations and chest pain. Patient states that the symptoms have been happening for the last several days. he denies any dyspnea nausea or vomiting. Patient does state that he feels a bit anxious. At this time patient is found resting currently in bed without any acute distress. He continues to feel anxious and having palpitations and heart rate at this time is 70 bpm. Patient continues to have difficulty and eating due to dysphasia. He continues to take the pantoprazole. Have tenderness to the abdomen related to surgery. remains afebrile, heart rate 69, blood pressure 09/01/1970, respirations 16, pulse ox 96% on room air. The CEA 0.5, hemoglobin 14.8, potassium 4.3, Review Of Systems: Constitutional: No fever, no chills, no night sweats. Reports unintentional weight loss. No weakness, fatigue or lethargy. No daytime sleepiness. EENT: No headache. No blurred vision or double vision, no loss of vision. No loss of Hearing, no ringing in the ears, no dizziness. No nasal drainage or congestion. No epistaxis. No sore throat. Lungs: No shortness of breath, cough, no sputum production. No wheezing. Cardiovascular: Reports chest pain-resolved, no lower extremity edema. Reports palpitations. No paroxysmal nocturnal dyspnea. No orthopnea. No lightheadedness or dizziness. No syncopal episodes. Abdominal: no abdominal discomfort. Reports dysphasia No nausea, vomiting. no diarrhea. No constipation. No bloody or tarry stools. Reports loss of appetite. Genitourinary: No dysuria, increased frequency, urgency. No urinary retention. Musculoskeletal: No myalgias. No muscle weakness, no gait dysfunction, no frequent falls. No back pain. No neck pain. Integumentary: No wounds, no lesions. No rash or pruritus. No unusual bruising. No change in hair or nails. Neurologic: No aphasia. No facial droop. No change in mentation. No head injury. No headache. No paralysis. No paresthesia. Psychiatric: No depression. No anxiety. No mood swings. Endocrine: No abnormal blood sugars. No weight change. No excessive sweating or thirst. 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 Family history: with no children, 9 healthy siblings. Mother is healthy at 75 that is unknown currently living Physical examination General Appearance: Alert, cooperative, no distress, appears stated age. Neck HEENT: Supple, no lymphadenopathy, no thyroid enlargement, no carotid bruits. Lungs: Clear to auscultation without crackles or wheezes no rhonchi, no deformity. Chest Wall: Chest wall normal expansion with deep inspiration no tenderness and no deformity was found on exam, no costochondral pain or discomfort. Heart: Regular rate and rhythm, S1, S2 normal, no murmur, rub or gallop. Back: Symmetric, no curvature, ROM normal, no CVA tenderness. Abdomen: Soft, non-tender, no rebound or rigidity, no hepatosplenomegaly. Extremities: Extremities normal, atraumatic, no cyanosis or edema. Pulses: 2+ and symmetric. Skin: Skin color, texture, tugor normal, no rashes or lesions. Neurologic: Alert oriented x3 cranial nerves II through XII intact, no motor deficit, no abnormal balance or gait Assessment and plan 1. Palpitations possible adrenal insufficiency versus stenosis versus prolonged illness. Cardiology consult appreciated, 2-D echo, consult general surgery. He was hydration, orthostatic blood pressure and heart rate. cortisol, amylase lipase and TSH ordered. 2. Atypical chest pain rule out cardiac etiology versus pleurisy inflammation. Aspirin 81 mg. 3. Pleurisy, as noted above 4. Unintentional weight loss related to dysphagia. Consult general surgery for possible EGD. Patient had previous multiple dilatations on November, January 28 and February 04. Most recently had a lysis of lesions on 02/08. Zofran 4 mg IV push as needed 5. GERD. Protonix 6. Anxiety Ativan 1 mg by mouth every 8 hours as needed 6. GI prophylaxis. Protonix 7. DVT prophylaxis. Ambulation CODE STATUS: Full code Discharge plan: Minimal 2 nights day more than likely home tomorrow Impression and plan of care have been directed as dictated by the signing physician. Saige Perez nurse practitioner acting as scribe for signing physician. Past Medical History Past Medical History: GERD/Reflux Additional Past Medical History / Comment(s): kidney stones, hiatial hernia History of Any Multi-Drug Resistant Organisms: None Reported Past Surgical History: Hernia Repair Additional Past Surgical History / Comment(s): bronchoscopy, esophageal dilation Past Anesthesia/Blood Transfusion Reactions: Previous Problems w/ Anesthesia, Motion Sickness Additional Past Anesthesia/Blood Transfusion Reaction / Comment(s): "takes long time to shake out of it -blood pressure drops very low during the middle of the night after procedure" suggested by PCP that be monitored possible overnight in observation Past Psychological History: No Psychological Hx Reported Smoking Status: Never smoker Past Alcohol Use History: None Reported Past Drug Use History: None Reported - Past Family History Mother Family Medical History: Fibromyalgia Medications and Allergies Home Medications Medication Instructions Recorded Confirmed Type Ondansetron Odt [Zofran Odt] 4 mg PO Q8HR PRN #9 tab 02/10/21 02/19/21 Rx Allergies Allergy/AdvReac Type Severity Reaction Status Date / Time acetaminophen [From Tylenol] Allergy Rash/Hives Verified 02/19/21 20:35 cephalexin [From Keflex] Allergy Rash/Hives Verified 02/19/21 20:35 Penicillins Allergy Rash/Hives Verified 02/19/21 20:35 Physical Exam Vitals: Vital Signs Temp Pulse Pulse Pulse Pulse Pulse Pulse 02/20/21 11:20 02/20/21 10:06 69 82 71 02/20/21 07:00 97.8 F 60 02/20/21 02:53 97.6 F 61 02/20/21 01:29 02/19/21 23:28 97.7 F 64 02/19/21 22:46 98.7 F 65 02/19/21 22:00 65 02/19/21 21:00 79 02/19/21 20:21 96 02/19/21 20:15 98.1 F 139 H Resp BP BP BP BP BP Pulse Ox 02/20/21 11:20 96 02/20/21 10:06 105/70 103/69 111/74 96 06/26/21 07:00 18 97/62 96 02/20/21 02:53 15 98/66 96 02/20/21 01:29 18 02/19/21 23:28 18 107/68 98 02/19/21 22:46 16 107/73 97 02/19/21 22:00 16 106/73 97 02/19/21 21:00 18 02/19/21 20:21 02/19/21 20:15 20 103/68 98 Intake and Output 02/19/21 02/20/21 02/20/21 22:59 06:59 14:59 Other: Voiding Method Toilet Toilet Urinal Urinal # Voids 1 Weight 97.522 kg Results CBC & Chem 7: 02/20/21 04:03 02/20/21 04:03 Labs: Abnormal Lab Results - Last 24 Hours (Table) 02/19/21 02/19/21 02/19/21 Range/Units 20:46 20:46 20:46 WBC 12.0 H (3.8-10.6) k/uL D-Dimer 1.29 H (<0.60) mg/L FEU Total Bilirubin 1.6 H (0.2-1.3) mg/dL ALT 139 H (4-49) U/L Alkaline Phosphatase (38-126) U/L Total Protein (6.3-8.2) g/dL Albumin (3.5-5.0) g/dL Amylase (30-110) U/L Lipase 507 H (23-300) U/L 02/20/21 02/20/21 Range/Units 04:03 04:03 WBC (3.8-10.6) k/uL D-Dimer (<0.60) mg/L FEU Total Bilirubin (0.2-1.3) mg/dL ALT 111 H (4-49) U/L Alkaline Phosphatase 32 L (38-126) U/L Total Protein 5.7 L (6.3-8.2) g/dL Albumin 3.4 L (3.5-5.0) g/dL Amylase 119 H (30-110) U/L Lipase 449 H (23-300) U/L Thrombosis Risk Factor Assmnt - Choose All That Apply Any of the Below Risk Factors Present?: Yes Each Factor Represents 1 point: Age 41-60 years, Obesity (BMI >25) Other Risk Factors: No Other congenital or acquired thrombophilia - If yes, enter type in comment: No Thrombosis Risk Factor Assessment Total Risk Factor Score: 2 Thrombosis Risk Factor Assessment Level: Low Risk
--- NOTE | 2021-02-20 13:43 | P.GSCN ---
History of Present Illness Consult date: 02/20/21 History of present illness: Patient is s/p Christopher 10 days ago. Family at bedside giving additional history. He reports chest pain also radiating to the left upper abdomen. CT reviewed with post surgical changes upon my personal review. Weight loss over 100+ pounds and butter with mash potatoes was his last meal precipitating chest pain. Recommend US gallbladder. Low fat full liquid diet. Follow Christopher diet in interim. Past Medical History Past Medical History: GERD/Reflux Additional Past Medical History / Comment(s): kidney stones, hiatial hernia History of Any Multi-Drug Resistant Organisms: None Reported Past Surgical History: Hernia Repair Additional Past Surgical History / Comment(s): bronchoscopy, esophageal dilation Past Anesthesia/Blood Transfusion Reactions: Previous Problems w/ Anesthesia, Motion Sickness Additional Past Anesthesia/Blood Transfusion Reaction / Comm: "takes long time to shake out of it -blood pressure drops very low during the middle of the night after procedure" suggested by PCP that be monitored possible overnight in observation Past Psychological History: No Psychological Hx Reported Smoking Status: Never smoker Past Alcohol Use History: None Reported Past Drug Use History: None Reported - Past Family History Mother Family Medical History: Fibromyalgia Medications and Allergies Home Medications Medication Instructions Recorded Confirmed Type Ondansetron Odt [Zofran Odt] 4 mg PO Q8HR PRN #9 tab 02/10/21 02/19/21 Rx Allergies Allergy/AdvReac Type Severity Reaction Status Date / Time acetaminophen [From Tylenol] Allergy Rash/Hives Verified 02/19/21 20:35 cephalexin [From Keflex] Allergy Rash/Hives Verified 02/19/21 20:35 Penicillins Allergy Rash/Hives Verified 02/19/21 20:35 Surgical - Exam Vital Signs Temp Pulse Resp BP Pulse Ox 98.1 F 139 H 20 103/68 98 02/19/21 20:15 02/19/21 20:15 02/19/21 20:15 02/19/21 20:15 02/19/21 20:15 Results - Labs 02/20/21 04:03 02/20/21 04:03 Abnormal Lab Results - Last 24 Hours (Table) 02/19/21 02/19/21 02/19/21 Range/Units 20:46 20:46 20:46 WBC 12.0 H (3.8-10.6) k/uL D-Dimer 1.29 H (<0.60) mg/L FEU Total Bilirubin 1.6 H (0.2-1.3) mg/dL ALT 139 H (4-49) U/L Alkaline Phosphatase (38-126) U/L Total Protein (6.3-8.2) g/dL Albumin (3.5-5.0) g/dL Amylase (30-110) U/L Lipase 507 H (23-300) U/L 02/20/21 02/20/21 Range/Units 04:03 04:03 WBC (3.8-10.6) k/uL D-Dimer (<0.60) mg/L FEU Total Bilirubin (0.2-1.3) mg/dL ALT 111 H (4-49) U/L Alkaline Phosphatase 32 L (38-126) U/L Total Protein 5.7 L (6.3-8.2) g/dL Albumin 3.4 L (3.5-5.0) g/dL Amylase 119 H (30-110) U/L Lipase 449 H (23-300) U/L Diabetes panel 02/19/21 02/20/21 Range/Units 20:46 04:03 Sodium 139 139 (137-145) mmol/L Potassium 4.1 4.3 (3.5-5.1) mmol/L Chloride 103 106 (98-107) mmol/L Carbon Dioxide 24 29 (22-30) mmol/L BUN 15 12 (9-20) mg/dL Creatinine 0.81 0.79 (0.66-1.25) mg/dL Glucose 87 87 (74-99) mg/dL Calcium 9.9 9.1 (8.4-10.2) mg/dL AST 47 37 (17-59) U/L ALT 139 H 111 H (4-49) U/L Alkaline Phosphatase 42 32 L (38-126) U/L Total Protein 7.2 5.7 L (6.3-8.2) g/dL Albumin 4.6 3.4 L (3.5-5.0) g/dL Thyroid panel 02/20/21 Range/Units 04:03 TSH 2.720 (0.465-4.680) mIU/L Calcium panel 02/19/21 02/20/21 Range/Units 20:46 04:03 Calcium 9.9 9.1 (8.4-10.2) mg/dL Albumin 4.6 3.4 L (3.5-5.0) g/dL Pituitary panel 02/19/21 02/20/21 02/20/21 Range/Units 20:46 04:03 04:03 Sodium 139 139 (137-145) mmol/L Potassium 4.1 4.3 (3.5-5.1) mmol/L Chloride 103 106 (98-107) mmol/L Carbon Dioxide 24 29 (22-30) mmol/L BUN 15 12 (9-20) mg/dL Creatinine 0.81 0.79 (0.66-1.25) mg/dL Glucose 87 87 (74-99) mg/dL Calcium 9.9 9.1 (8.4-10.2) mg/dL TSH 2.720 (0.465-4.680) mIU/L Adrenal panel 02/19/21 02/20/21 Range/Units 20:46 04:03 Sodium 139 139 (137-145) mmol/L Potassium 4.1 4.3 (3.5-5.1) mmol/L Chloride 103 106 (98-107) mmol/L Carbon Dioxide 24 29 (22-30) mmol/L BUN 15 12 (9-20) mg/dL Creatinine 0.81 0.79 (0.66-1.25) mg/dL Glucose 87 87 (74-99) mg/dL Calcium 9.9 9.1 (8.4-10.2) mg/dL Total Bilirubin 1.6 H 1.2 (0.2-1.3) mg/dL AST 47 37 (17-59) U/L ALT 139 H 111 H (4-49) U/L Alkaline Phosphatase 42 32 L (38-126) U/L Total Protein 7.2 5.7 L (6.3-8.2) g/dL Albumin 4.6 3.4 L (3.5-5.0) g/dL
--- NOTE | 2021-02-20 14:56 | US ---
EXAMINATION TYPE: US gallbladder DATE OF EXAM: 02/20/2021 COMPARISON: CLINICAL HISTORY: cholecystitis. pain. Patient last ate at 10:00 am. EXAM MEASUREMENTS: Liver Length: 16.7 cm Gallbladder Wall: 0.2 cm Right Kidney: 11.2 x 5.5 x 5.7 cm Pancreas: Obscured by bowel gas Liver: Limited visualization. Scanned through ribs. Left lobe obscure by overlying bowel gas. Por tions seen appear echogenic and possible focal sparing adjacent to GB Gallbladder: Sludge seen Evidence for sonographic Cates's sign: neg CBD: Obscured by overlying bowel gas Right Kidney: wnl IMPRESSION: There is some echogenic bile. No gallstones seen. No dilated ducts. There is probably some fatty infi ltration of the liver.
[2021-02-21] MEDS: SODIUM CHLORIDE 0.9% 1,000 ML IV SCH ×2 (01:18→08:26)
[2021-02-21] MEDS: ASPIRIN 81 MG PO SCH (08:22)
[2021-02-21] MEDS: PANTOPRAZOLE 40 MG TABLET PO SCH (08:22)
[2021-02-21] MEDS ORDERED: METOPROLOL TARTRATE 12.5 MG TAB PO SCH (09:00)
--- NOTE | 2021-02-21 11:03 | P.PN ---
Subjective Progress Note Date: 02/21/21 History of present illness This is a 40-year-old patient to manage currently being followed by Jerome HERNANDEZ with past medical history of hypertension, new symptoms location in November 2019, multiple dilatations of esophagus in November, January 28 and February 04. A lysis of lesions on 02/08. Who had a unintentional 120 pound weight loss since November. Patient has been unable to eat and drink. He is currently taking penicillin. Due to the weight loss patient has been taken off his atenolol due to low blood pressure. Patient presented to the emergency room complaining of palpitations and chest pain. Patient states that the symptoms have been happening for the last several days. he denies any dyspnea nausea or vomiting. Patient does state that he feels a bit anxious. At this time patient is found resting currently in bed without any acute distress. He continues to feel anxious and having palpitations and heart rate at this time is 70 bpm. Patient continues to have difficulty and eating due to dysphasia. He continues to take the pantoprazole. Have tenderness to the abdomen related to surgery. remains afebrile, heart rate 69, blood pressure 09/01/1970, respirations 16, pulse ox 96% on room air. The CEA 0.5, hemoglobin 14.8, potassium 4.3, 02/21: She is found sitting up in bed eating breakfast. He is able to tolerate some food at this time. Patient had an ultrasound which was negative. Cardiology has signed off, initiating metoprolol 12.5 mg daily. Patient is e xtremely upset that he continues to feel jittery and shaky and even though he does not have elevated heart rate. Explained in great length with the patient that symptoms more than likely are associated with his previous Bharathi fundoplication in March 2020. Patient was instructed to follow-up with Dr. Adair to discuss the plan of care for further evaluation of symptomatology since the operation. Patient remains extremely upset. Patient will see cardiology and general surgery again today and make a decision if he would like to go home today or wait until tomorrow so he can be seen by Dr. Adari. Review Of Systems: Constitutional: No fever, no chills, no night sweats. Reports unintentional weight loss. No weakness, fatigue or lethargy. No daytime sleepiness. EENT: No headache. No blurred vision or double vision, no loss of vision. No loss of Hearing, no ringing in the ears, no dizziness. No nasal drainage or congestion. No epistaxis. No sore throat. Lungs: No shortness of breath, cough, no sputum production. No wheezing. Cardiovascular: Reports chest pain-resolved, no lower extremity edema. Reports palpitations. No paroxysmal nocturnal dyspnea. No orthopnea. No lightheadedness or dizziness. No syncopal episodes. Abdominal: no abdominal discomfort. Reports dysphasia No nausea, vomiting. no diarrhea. No constipation. No bloody or tarry stools. Reports loss of appetite. Genitourinary: No dysuria, increased frequency, urgency. No urinary retention. Musculoskeletal: No myalgias. No muscle weakness, no gait dysfunction, no kaya quent falls. No back pain. No neck pain. Integumentary: No wounds, no lesions. No rash or pruritus. No unusual bruising. No change in hair or nails. Neurologic: No aphasia. No facial droop. No change in mentation. No head injury. No headache. No paralysis. No paresthesia. Psychiatric: No depression. No anxiety. No mood swings. Endocrine: No abnormal blood sugars. No weight change. No excessive sweating or thirst. Physical examination General Appearance: Alert, cooperative, no distress, appears stated age. Neck HEENT: Supple, no lymphadenopathy, no thyroid enlargement, no carotid bruits. Lungs: Clear to auscultation without crackles or wheezes no rhonchi, no deformity. Chest Wall: Chest wall normal expansion with deep inspiration no tenderness and no deformity was found on exam, no costochondral pain or discomfort. Heart: Regular rate and rhythm, S1, S2 normal, no murmur, rub or gallop. Back: Symmetric, no curvature, ROM normal, no CVA tenderness. Abdomen: Soft, non-tender, no rebound or rigidity, no hepatosplenomegaly. Extremities: Extremities normal, atraumatic, no cyanosis or edema. Pulses: 2+ and symmetric. Skin: Skin color, texture, tugor normal, no rashes or lesions. Neurologic: Alert oriented x3 cranial nerves II through XII intact, no motor deficit, no abnormal balance or gait Assessment and plan 1. Palpitations possible adrenal insufficiency versus stenosis versus prolonged illness. Cardiology consult appreciated, 2-D echo, general surgery consult appreciated. continue hydration, orthostatic blood pressure and heart rate - WNL. cortisol, amylase lipase and TSH - WNL 2. Atypical chest pain rule out cardiac etiology versus pleurisy inflammation. Aspirin 81 mg. metoprolol 12.5 mg daily 3. Pleurisy, as noted above 4. Unintentional weight loss related to dysphagia. Consult general surgery for possible EGD. Patient had previous multiple dilatations on November, January 28 and February 04. Most recently had a lysis of lesions on 02/08. Zofran 4 mg IV push as needed 5. GERD. Protonix 6. Anxiety Ativan 1 mg by mouth every 8 hours as needed 6. GI prophylaxis. Protonix 7. DVT prophylaxis. Ambulation CODE STATUS: Full code Discharge plan: Minimal 2 nights day more than likely home tomorrow Impression and plan of care have been directed as dictated by the signing physician. Saige Perez nurse practitioner acting as scribe for signing physician. Objective - Vital Signs Vital signs: Vital Signs Temp 97.6 F 02/21/21 07:00 Pulse 69 02/21/21 07:00 Resp 18 02/21/21 07:00 BP 107/70 02/21/21 07:00 Pulse Ox 97 02/21/21 07:00 Intake & Output 02/20/21 02/21/21 02/21/21 18:59 06:59 18:59 Output Total 700 Balance -700 Output: Urine 700 Other: Voiding Method Toilet Toilet Urinal Urinal # Voids 2 1 - Labs CBC & Chem 7: 02/20/21 04:03 02/20/21 04:03
[2021-02-21 14:45] VITALS: BP 102/69; PULSE 86; TEMP 98.1
--- NOTE | 2021-02-21 15:32 | P.PN ---
Subjective Progress Note Date: 02/21/21 US gallbladder independently reviewed with sludge and early gallstones. STUDIES reviewed with patient and family. Gallstones are precipitated with recent moderate weight loss and high fat diet. May be discharge home Dietary restriction with gallstones diet reviewed Patient already has outpatient followup his surgeon Stable from surgical standpoint for discharge. Objective - Vital Signs Vital signs: Vital Signs Temp 98.1 F 02/21/21 14:44 Pulse 86 02/21/21 14:44 Resp 18 02/21/21 14:44 BP 102/69 02/21/21 14:44 Pulse Ox 96 02/21/21 14:44 Intake & Output 02/20/21 02/21/21 02/21/21 18:59 06:59 18:59 Output Total 700 600 Balance -700 -600 Output: Urine 700 600 Other: Voiding Method Toilet Toilet Urinal Urinal # Voids 2 1 - Labs CBC & Chem 7: 02/20/21 04:03 02/20/21 04:03
--- NOTE | 2021-02-22 09:31 | ECHOF ---
Referral Reason:CP MEASUREMENTS -------- HEIGHT: 180.3 cm WEIGHT: 97.5 kg BP: RVIDd: 2.8 cm (< 3.3) IVSd: 1.4 cm (0.6 - 1.1) LVIDd: 3.6 cm (3.9 - 5.3) LVPWd: 1.4 cm (0.6 - 1.1) IVSs: 1.7 cm LVIDs: 2.0 cm LVPWs: 1.6 cm LAESV Index (A-L): 18.00 ml/m Ao Diam: 3.2 cm (2.0 - 3.7) AV Cusp: 2.2 cm (1.5 - 2.6) LA Diam: 3.7 cm (2.7 - 3.8) MV EXCURSION: 14.230 mm (> 18.000) MV EF SLOPE: 61 mm/s (70 - 150) EPSS: 0.8 cm MV E Ramu: 0.66 m/s MV DecT: 137 ms MV A Ramu: 0.54 m/s MV E/A Ratio: 1.22 RAP: 5.00 mmHg RVSP: 20.11 mmHg FINDINGS -------- This was a technically adequate study. The left ventricular size is normal. There is severe concentric left ventricular hypertrophy. Ove rall left ventricular systolic function is normal with, an EF between 55 - 60 %. The diastolic fill ing pattern is normal for the age of the patient 8.01. The right ventricle is normal in size. The left atrial size is normal. Normal LA size by volume 22+/-6 ml/m2. The right atrial size is normal. Unable to visualize atrial septum. The aortic valve is trileaflet and appears structurally normal. The mitral valve is normal. There is trace mitral regurgitation. The tricuspid valve appears structurally normal. Trace tricuspid regurgitation present. Right channing tricular systolic pressure is normal at < 35 mmHg. There is no pulmonic regurgitation present. The aortic root size is normal. IVC Not well visulized. There is no pericardial effusion. CONCLUSIONS -------- 1. The left ventricular size is normal. 2. There is severe concentric left ventricular hypertrophy. 3. Overall left ventricular systolic function is normal with, an EF between 55 - 60 %. 4. The diastolic filling pattern is normal for the age of the patient 8.01 5. There is trace mitral regurgitation. 6. Trace tricuspid regurgitation present. 7. There is no pericardial effusion. CODE OFFICIAL: Mojgan Bee RDCS
== END 2021-02-21 16:25 | disposition home or self-care (01) ==
LOC: EC 19:58 → 6NMEDSUR 22:30
PROVIDERS: ADMIT Internal Medicine Geriatric Medicine; ATTEND Internal Medicine Geriatric Medicine
DX: R07.89 Other chest pain (principal); R00.2 Palpitations; R47.02 Dysphasia; R13.10 Dysphagia, unspecified; R00.0 Tachycardia, unspecified; R09.1 Pleurisy; F41.9 Anxiety disorder, unspecified; R74.8 Abnormal levels of other serum enzymes; R94.5 Abnormal results of liver function studies; R63.4 Abnormal weight loss; D72.829 Elevated white blood cell count, unspecified; K21.9 Gastro-esophageal reflux disease without esophagitis; E66.9 Obesity, unspecified; Z68.29 Body mass index [BMI] 29.0-29.9, adult; K80.20 Calculus of gallbladder without cholecystitis without obstruction; Z20.822 Contact with and (suspected) exposure to COVID-19; Z98.890 Other specified postprocedural states; Z88.0 Allergy status to penicillin; Z88.1 Allergy status to other antibiotic agents; Z88.8 Allergy status to other drugs, medicaments and biological substances; Z87.442 Personal history of urinary calculi; Z86.79 Personal history of other diseases of the circulatory system; Z82.69 Family history of other diseases of the musculoskeletal system and connective tissue
CPT/HCPCS: 96361 ×3; 93005 ×2; 96360; 99285; 36415; 94760 ×2; 93306; 85379; 80053 ×2; 84443; 82533; 82150; 83690 ×2; 83735 ×2; 84484 ×2; 85025 ×2; 85610; 85730; 87635; 71046; 76705; 71275; G0378 ×3; Q9967

== ENCOUNTER → 2021-03-03 | Outpatient (CLI) | payer BC ==
--- NOTE | 2021-03-03 19:11 | CONS ---
CONSULTATION Siddhartha Ricci is a 41-year-old patient, has been evaluated for possible obstructive sleep apnea-hypopnea syndrome. HISTORY OF PRESENT ILLNESS/SLEEP WAKE EVALUATION: ( ) for obstructive sleep apnea. Has been evaluated for obstructive sleep apnea- hypopnea syndrome. Patient has history of obstructive sleep apnea since 2014. Since that time, he is on treatment with CPAP but for the last year, he lost about 110 pounds and at the present time, while he is using his CPAP equipment he feels difficulties. He does not feel comfortable with the machine. His sleep schedule from 9 or 10 p.m. until 6 or 7 a.m. on weekdays and from 10 or 11 p.m. until 6 or 7 a.m. on weekends. Sometimes he has problems with falling asleep, although no TV in bedroom. He sleeps on the back position and side position. He may wake up from sleep once. No history of hypnagogic hallucinations, sleep paralysis or cataplexy. During the day, he does not take naps. [place] Sleepiness Scale is 1. I checked patient's CPAP unit. Machine is in automatic regimen with range of the pressure 5-15, average pressure 9.4. Usage is 22/30 nights in home. ( ) is 22 L/minute which is borderline. Apnea-hypopnea index reading of 1.3, which is normal . PAST MEDICAL HISTORY: Positive for hypertension, acid reflux. PAST SURGICAL HISTORY: Christopher fundoplication surgery, esophageal dilatation. MEDICATIONS: Protonix 20 mg once a day. Hydroxyzine 10 mg once a day. FAMILY HISTORY: Positive for fibromyalgia, arthritis, asthma, sleep apnea. REVIEW OF SYSTEMS: Negative. No headaches. No chest pain. No shortness of breath. No blood in the urine or stool. Occasional awakenings from sleep. PHYSICAL EXAM: man without distress BP 116/83, HR 86, RR 15, height 5 feet 10-1/2 inches, weight 215, body mass index 30.4, temperature 97.4, oxygen saturation on room air 96%. Oropharynx moderately low position of soft palate. Neck is 16.5 inches in circumference. HEENT: PERRLA, EOMI, evaluation of oropharynx showed tongue protrudes midline. NECK: Supple, no JVD. Thyroid is not palpable. LUNGS: Clear to percussion and to auscultation. Good air exchange. No wheezing or rhonchi. HEART: S1, S2 regular. No murmurs, gallops, or rubs. ABDOMEN: Soft and nontender. Bowel sounds are present. No organomegaly appreciated. EXTREMITIES: No clubbing or cyanosis. [employer] OFFICIAL: Awake, alert, and oriented X3. Cranial nerves 2 to 7 intact. There is no fasciculation or atrophy. noted. No focal deficits observed. IMPRESSION: 1. Obstructive sleep apnea-hypopnea syndrome diagnosed in another institution 6 years ago. Since that time, patient lost 100 pounds. He continues to use his CPAP equipment, but feel that CPAP treatment does not work for him. Does not feel comfortable with CPAP. No clear snoring at the present time. 2. Mild obesity, body mass index 30.4. 3. History of hypertension. 4. Acid reflux. 5. Status post Christopher fundoplication. 6. Status post esophageal dilatation. PLAN: 1. Repeat polysomnogram for evaluation of patient breathing at the present time after patient lost 100 pounds. 2. Following plan after reviewing results of sleep study. 3. Sleep hygiene with regular bedtime, bed for 8 1/2 hours. 4. No driving if feeling sleepiness. Thank you very much for referring this patient for consultation. Sincerely, Yossi Humphreys MD, PhD, FAASM Diplomat of [employer] [facility] [place] PAUL / ELIJAH: [id number] /
== END ==
LOC: SLEEP 15:54
PROVIDERS: ATTEND Internal Medicine
DX: G47.33 Obstructive sleep apnea (adult) (pediatric) (principal); E66.9 Obesity, unspecified; I10 Essential (primary) hypertension; K21.9 Gastro-esophageal reflux disease without esophagitis; Z68.30 Body mass index [BMI] 30.0-30.9, adult; Z98.890 Other specified postprocedural states; Z99.89 Dependence on other enabling machines and devices; Z88.0 Allergy status to penicillin; Z88.6 Allergy status to analgesic agent; Z88.1 Allergy status to other antibiotic agents
CPT/HCPCS: 99211

== ENCOUNTER 2021-03-11 16:31 | Observation (INO) | payer BC ==
[2021-03-11] MEDS ORDERED: SODIUM CHLORIDE 0.9% 1,000 ML IV ONE ×2 (17:27→19:56)
[2021-03-11] MEDS ORDERED: SODIUM CHLORIDE 0.9% 500 ML 500 ML IV ONE (17:27)
[2021-03-11 17:45] LABS: Basophils # (A) 0.1 k/uL (0-0.2); Basophils % (A) 1 %; Eosinophils # (A) 0.2 k/uL (0-0.7); Eosinophils % (A) 2 %; HCT 48.1 % (39.0-53.0); HGB 16.4 gm/dL (13.0-17.5); Lymphocytes # (A) 2.1 k/uL (1.0-4.8); Lymphocytes % (A) 23 %; MCH 29.3 pg (25.0-35.0); MCHC 34.1 g/dL (31.0-37.0); MCV 85.9 fL (80.0-100.0); Mean Platelet Volume 6.7; Monocytes # (A) 0.8 k/uL (0-1.0); Monocytes % (A) 9 %; Neutrophils # (A) 5.8 k/uL (1.3-7.7); Neutrophils % (A) 64 %; Platelet Count 316 k/uL (150-450); RBC 5.59 m/uL (4.30-5.90); RDW 13.3 % (11.5-15.5)
[2021-03-11 17:58] LABS: ALT 32 U/L (4-49); AST 30 U/L (17-59); African American GFR (CKD) >90 (>60 ml/min/1.73 sqM); Albumin 5.2 g/dL (3.5-5.0); Alkaline Phosphatase 47 U/L (38-126); Anion Gap 11 mmol/L; Blood Urea Nitrogen 13 mg/dL (9-20); Calcium 10.1 mg/dL (8.4-10.2); Carbon Dioxide 28 mmol/L (22-30); Chloride 105 mmol/L (98-107); Glucose 107 mg/dL (74-99); Non-African American GFR(CKD) >90 (>60 ml/min/1.73 sqM); Sodium 144 mmol/L (137-145); Total Bilirubin 1.1 mg/dL (0.2-1.3)
--- NOTE | 2021-03-11 18:45 | CT ---
EXAMINATION TYPE: CT abdomen wo con DATE OF EXAM: 03/11/2021 COMPARISON: 01/26/2021 HISTORY: Difficulty holding down food and liquid. CT DLP: 718 mGycm Automated exposure control for dose reduction was used. Images obtained from the diaphragm to the floor the pelvis with no contrast. There is some oral material in the dilated distal esophagus. There is very little contrast in the sto mach. Stomach has normal size. Spleen pancreas liver gallbladder appear intact. The bile ducts are no t dilated. There is no adrenal mass. Kidneys have normal size and contour. There is no hydronephrosis. Ureters a re not dilated. There is no retroperitoneal adenopathy. There is no mesenteric edema. There is no ascites or free air. There is no sign of a bowel obstructio n. There is no evidence of thickened appendix. The lumbar vertebra have normal alignment. There is no compression fracture. Posterior elements are i ntact. IMPRESSION: Dilated distal esophagus with very little oral contrast passing through the gastroesophageal junction and consistent with a stricture. Tumor obstruction not excluded. There is surgical clips at the ubaldo roesophageal junction.
--- NOTE | 2021-03-11 19:07 | ED ---
General Adult HPI - General Chief complaint: Nausea/Vomiting/Diarrhea Stated complaint: Possible dehydration Time Seen by Provider: 03/11/21 16:45 Source: patient, RN notes reviewed, old records reviewed Mode of arrival: ambulatory Limitations: no limitations - History of Present Illness Initial comments: This is a 41-year-old male who presents emergency Department complaining of difficulty swallowing. Patient states had a fundoplication last March and since he's also 110 pounds because he is unable to keep food and fluids down on a consistent basis. Patient states that [address] Adair. Patient states since Monday he has been unable to keep any food down and only minimal liquids. Patient states is a trace of a cough that back up. Patient denies any pain patient denies any fever chills patient denies any chest pain difficulty breathing shortness of breath. Patient states he feels as though is getting significantly dehydrated. - Related Data Home Medications Medication Instructions Recorded Confirmed hydrOXYzine HCL [Atarax] 10 mg PO HS PRN 03/11/21 03/11/21 Previous Rx's Medication Instructions Recorded Pantoprazole [Protonix] 40 mg PO AC-BRKFST #30 tablet. 02/21/21 Allergies Allergy/AdvReac Type Severity Reaction Status Date / Time acetaminophen [From Tylenol] Allergy Rash/Hives Verified 03/11/21 17:58 cephalexin [From Keflex] Allergy Rash/Hives Verified 03/11/21 17:58 Penicillins Allergy Rash/Hives Verified 03/11/21 17:58 Review of Systems ROS Statement: Those systems with pertinent positive or pertinent negative responses have been documented in the HPI. ROS Other: All systems not noted in ROS Statement are negative. Past Medical History Past Medical History: GERD/Reflux Additional Past Medical History / Comment(s): kidney stones, hiatial hernia History of Any Multi-Drug Resistant Organisms: None Reported Past Surgical History: Hernia Repair Additional Past Surgical History / Comment(s): bronchoscopy, esophageal dilation Past Anesthesia/Blood Transfusion Reactions: Previous Problems w/ Anesthesia, Motion Sickness Additional Past Anesthesia/Blood Transfusion Reaction / Comment(s): "takes long time to shake out of it -blood pressure drops very low during the middle of the night after procedure" suggested by PCP that be monitored possible overnight in observation Past Psychological History: No Psychological Hx Reported Smoking Status: Never smoker Past Alcohol Use History: None Reported Past Drug Use History: None Reported - Past Family History Mother Family Medical History: Fibromyalgia General Exam - General Exam Comments Initial Comments: GENERAL: Patient is well-developed and well-nourished. Patient is nontoxic and well- hydrated and is in mild distress. ENT: Neck is soft and supple. No significant lymphadenopathy is noted. Oropharynx is clear. Moist mucous membranes. Neck has full range of motion without eliciting any pain. EYES: The sclera were anicteric and conjunctiva were pink and moist. Extraocular movements were intact and pupils were equal round and reactive to light. Eyelids were unremarkable. PULMONARY: Unlabored respirations. Good breath sounds bilaterally. No audible rales rhonchi or wheezing was noted. CARDIOVASCULAR: There is a regular rate and rhythm without any murmurs gallops or rubs. ABDOMEN: Soft and nontender with normal bowel sounds. SKIN: Skin is clear with no lesions or rashes and otherwise unremarkable. NEUROLOGIC: Patient is alert and oriented x3. Cranial nerves II through XII are grossly intact. Motor and sensory are also intact. Normal speech, volume and content. Symmetrical smile. MUSCULOSKELETAL: Normal extremities with adequate strength and full range of motion. LYMPHATICS: No significant lymphadenopathy is noted PSYCHIATRIC: Normal psychiatric evaluation. Limitations: no limitations Course Vital Signs 03/11/21 03/11/21 16:42 19:30 Temperature 98.1 F Pulse Rate 95 88 Respiratory 20 20 Rate Blood Pressure 137/91 112/75 O2 Sat by Pulse 99 96 Oximetry Medical Decision Making - Medical Decision Making I spoke with Dr. Mana Adair wanted a CT with oral contrast to see how much of the contrast media to the stomach. CT of the upper abdomen with contrast showed very little contrast going into the stomach. I spoke with Dr. Adair he agreed to be on consult for the patient admitted the patient Dr. Quispe's group and I wrote admitting orders. - Lab Data Result diagrams: 03/11/21 17:30 03/11/21 17:30 Lab Results 03/11/21 03/11/21 Range/Units 17:30 17:30 WBC 9.0 (3.8-10.6) k/uL RBC 5.59 (4.30-5.90) m/uL Hgb 16.4 (13.0-17.5) gm/dL Hct 48.1 (39.0-53.0) % MCV 85.9 (80.0-100.0) fL MCH 29.3 (25.0-35.0) pg MCHC 34.1 (31.0-37.0) g/dL RDW 13.3 (11.5-15.5) % Plt Count 316 (150-450) k/uL MPV 6.7 Neutrophils % 64 % Lymphocytes % 23 % Monocytes % 9 % Eosinophils % 2 % Basophils % 1 % Neutrophils # 5.8 (1.3-7.7) k/uL Lymphocytes # 2.1 (1.0-4.8) k/uL Monocytes # 0.8 (0-1.0) k/uL Eosinophils # 0.2 (0-0.7) k/uL Basophils # 0.1 (0-0.2) k/uL Sodium 144 (137-145) mmol/L Potassium 4.0 (3.5-5.1) mmol/L Chloride 105 (98-107) mmol/L Carbon Dioxide 28 (22-30) mmol/L Anion Gap 11 mmol/L BUN 13 (9-20) mg/dL Creatinine 0.83 (0.66-1.25) mg/dL Est GFR (CKD-EPI)AfAm >90 (>60 ml/min/1.73 sqM) Est GFR (CKD-EPI)NonAf >90 (>60 ml/min/1.73 sqM) Glucose 107 H (74-99) mg/dL Calcium 10.1 (8.4-10.2) mg/dL Total Bilirubin 1.1 (0.2-1.3) mg/dL AST 30 (17-59) U/L ALT 32 (4-49) U/L Alkaline Phosphatase 47 (38-126) U/L Total Protein 8.0 (6.3-8.2) g/dL Albumin 5.2 H (3.5-5.0) g/dL Disposition Clinical Impression: Dysphagia Disposition: ADMITTED IP TO THIS HOSP Referrals: Son Woody MD [Primary Care Provider] - 1-2 days Time of Disposition: 19:56
[2021-03-11] MEDS ORDERED: DEXAMETHASONE SOD PHOSPHATE 10 MG/ML 1 ML VIAL IV STA (19:56)
[2021-03-11] MEDS ORDERED: TEMAZEPAM 15 MG CAP PO PRN (23:34)
[2021-03-11] MEDS: DEXAMETHASONE SOD PHOSPHATE 4 MG/ML 1 ML VIAL IV SCH (23:50)
[2021-03-12] MEDS ORDERED: LORazepam 2 MG/ML INJ IV ONE (00:06)
[2021-03-12] MEDS: DEXAMETHASONE SOD PHOSPHATE 4 MG/ML 1 ML VIAL IV SCH ×2 (05:15→13:53)
[2021-03-12 08:15] VITALS: BP 118/79; PULSE 82; RESP 17; TEMP 98.3
[2021-03-12] MEDS ORDERED: PANTOPRAZOLE 40 MG/10 ML VIAL IVP SCH (09:00)
--- NOTE | 2021-03-12 11:21 | P.GSCN ---
<TravisJennifer enriquez - Last Filed: 03/12/21 11:11> History of Present Illness Consult date: 03/12/21 History of present illness: CHIEF COMPLAINT: Dysphagia HISTORY OF PRESENT ILLNESS: This is a 41-year-old male who had Christopher fundoplication 04/08/2020 and since that procedure he has been having issues with dysphagia and continuous vomiting. He has had about 110 pound weight loss since March of last year. Patient has had 3 EGDs with dilation and again no improvement in symptoms. He had a revision of his hiatal hernia on 02/08/2021. And patient continues to still have difficulty keeping anything down. Patient is unable to even keep water down. He reports that the foods that he eats are pured consistency and those come up. He is unable to even drink water. He does report having bowel movements. Denies any fevers chills or sweats. He had a computed tomography scan of the abdomen and pelvis with dilated distal esophagus with very little oral contrast passing through the GE junction and consistent with a stricture. Tumor obstruction not excluded. There is surgical clips at the gastroesophageal junction. Therefore a surgical consult was requested regarding patient's dysphagia. Patient has been started on dexamethasone. His white count is normal. He is afebrile. Dr. Frances is covering for Dr. Adair PAST MEDICAL HISTORY: See list. PAST SURGICAL HISTORY: See list. MEDICATIONS: See list. ALLERGIES: See list. SOCIAL HISTORY: No illicit drug use. REVIEW OF SYSTEMS: CONSTITUTIONAL: Denies fever or chills. HEENT: Denies blurred vision, vision changes, or eye pain. Denies hemoptysis CARDIOVASCULAR: Denies chest pain or pressure. RESPIRATORY: No shortness of breath. GASTROINTESTINAL: See HPI for pertinent findings HEMATOLOGIC: Denies bleeding disorders. GENITOURINARY: Denies any blood in urine or increased urinary frequency. SKIN: Denies pruitis. Denies rash. PHYSICAL EXAM: VITAL SIGNS: Reviewed GENERAL: Well-developed in no acute distress. HEENT: No sclera icterus. Extraocular movements grossly intact. Moist buccal mucosa. Head is atraumatic, normocephalic. No nasal drainage. ABDOMEN: Soft. Nondistended. Nontender NEUROLOGIC: Alert and oriented. Cranial nerves II through XII grossly intact. LABORATORY DATA: WBC is 9 hemoglobin 16.4 platelets 316 sodium is 144 potassium is 4.0 creatinine 0.83 glucose 107 LFTs are normal albumin 5.2 IMAGING: CT scan findings as stated above ASSESSMENT: 1. Dysphagia with computed tomography scan findings showing dilated distal esophagus with very little oral contrast passing through the GE junction and consistent with a stricture 2. Status post Christopher fundoplication 04/08/2020 3. Status post 3 prior EGDs with dilation 4. Status post revision of hiatal hernia on 02/08/2021 PLAN: -Keep patient nothing by mouth -Continue the dexamethasone -Continue IV fluids -Start IV Protonix -Patient is very frustrated that he has had no improvement in his symptoms and is still having the dysphagia and vomiting after multiple procedures. Patient is requesting a second opinion. Dr. Frances did discuss with patient and family at the bedside that a second opinion is appropriate. And would recommend to transfer patient to a higher level of care. This was also discussed with the medical nurse practitioner of the attending physician. Thank you for this consultation Physician Structural Steel Worker Apprentice note has been reviewed by physician. Signing provider agrees with the documented findings, assessment, and plan of care. Past Medical History Past Medical History: GERD/Reflux Additional Past Medical History / Comment(s): kidney stones, hiatial hernia History of Any Multi-Drug Resistant Organisms: None Reported Past Surgical History: Hernia Repair Additional Past Surgical History / Comment(s): bronchoscopy, esophageal dilation 3x, Christopher scar tissue removed Past Anesthesia/Blood Transfusion Reactions: Previous Problems w/ Anesthesia, Motion Sickness Additional Past Anesthesia/Blood Transfusion Reaction / Comm: "takes long time to shake out of it -blood pressure drops very low during the middle of the night after procedure" suggested by PCP that be monitored possible overnight in observation Past Psychological History: No Psychological Hx Reported Smoking Status: Never smoker Past Alcohol Use History: None Reported Past Drug Use History: None Reported - Past Family History Mother Family Medical History: Fibromyalgia Medications and Allergies Home Medications Medication Instructions Recorded Confirmed Type Pantoprazole [Protonix] 40 mg PO AC-BRKFST #30 tablet. 02/21/21 03/11/21 Rx hydrOXYzine HCL [Atarax] 10 mg PO HS PRN 03/11/21 03/11/21 History Allergies Allergy/AdvReac Type Severity Reaction Status Date / Time acetaminophen [From Tylenol] Allergy Rash/Hives Verified 03/11/21 17:58 cephalexin [From Keflex] Allergy Rash/Hives Verified 03/11/21 17:58 Penicillins Allergy Rash/Hives Verified 03/11/21 17:58 Surgical - Exam Vital Signs Temp Pulse Resp BP Pulse Ox 98.1 F 95 20 137/91 99 03/11/21 16:42 03/11/21 16:42 03/11/21 16:42 03/11/21 16:42 03/11/21 16:42 Results - Labs 03/11/21 17:30 03/11/21 17:30 Abnormal Lab Results - Last 24 Hours (Table) 03/11/21 Range/Units 17:30 Glucose 107 H (74-99) mg/dL Albumin 5.2 H (3.5-5.0) g/dL Diabetes panel 03/11/21 Range/Units 17:30 Sodium 144 (137-145) mmol/L Potassium 4.0 (3.5-5.1) mmol/L Chloride 105 (98-107) mmol/L Carbon Dioxide 28 (22-30) mmol/L BUN 13 (9-20) mg/dL Creatinine 0.83 (0.66-1.25) mg/dL Glucose 107 H (74-99) mg/dL Calcium 10.1 (8.4-10.2) mg/dL AST 30 (17-59) U/L ALT 32 (4-49) U/L Alkaline Phosphatase 47 (38-126) U/L Total Protein 8.0 (6.3-8.2) g/dL Albumin 5.2 H (3.5-5.0) g/dL Calcium panel 03/11/21 Range/Units 17:30 Calcium 10.1 (8.4-10.2) mg/dL Albumin 5.2 H (3.5-5.0) g/dL Pituitary panel 03/11/21 Range/Units 17:30 Sodium 144 (137-145) mmol/L Potassium 4.0 (3.5-5.1) mmol/L Chloride 105 (98-107) mmol/L Carbon Dioxide 28 (22-30) mmol/L BUN 13 (9-20) mg/dL Creatinine 0.83 (0.66-1.25) mg/dL Glucose 107 H (74-99) mg/dL Calcium 10.1 (8.4-10.2) mg/dL Adrenal panel 03/11/21 Range/Units 17:30 Sodium 144 (137-145) mmol/L Potassium 4.0 (3.5-5.1) mmol/L Chloride 105 (98-107) mmol/L Carbon Dioxide 28 (22-30) mmol/L BUN 13 (9-20) mg/dL Creatinine 0.83 (0.66-1.25) mg/dL Glucose 107 H (74-99) mg/dL Calcium 10.1 (8.4-10.2) mg/dL Total Bilirubin 1.1 (0.2-1.3) mg/dL AST 30 (17-59) U/L ALT 32 (4-49) U/L Alkaline Phosphatase 47 (38-126) U/L Total Protein 8.0 (6.3-8.2) g/dL Albumin 5.2 H (3.5-5.0) g/dL <Keo Frances - Last Filed: 03/12/21 16:55> History of Present Illness History of present illness: As above. Patient is present with his family when evaluated earlier this morning. He and his family are frustrated with the continued issues swallowing. He is requesting a second opinion which is not unreasonable. Agree with plans for transfer at this time. If transfer not able to be arranged than outpatient referral can be made as long as he is tolerating liquids. Surgical - Exam Vital Signs Temp Pulse Resp BP Pulse Ox 98.1 F 95 20 137/91 99 03/11/21 16:42 03/11/21 16:42 03/11/21 16:42 03/11/21 16:42 03/11/21 16:42 Results - Labs 03/11/21 17:30 03/11/21 17:30 Abnormal Lab Results - Last 24 Hours (Table) 03/11/21 Range/Units 17:30 Glucose 107 H (74-99) mg/dL Albumin 5.2 H (3.5-5.0) g/dL Diabetes panel 03/11/21 Range/Units 17:30 Sodium 144 (137-145) mmol/L Potassium 4.0 (3.5-5.1) mmol/L Chloride 105 (98-107) mmol/L Carbon Dioxide 28 (22-30) mmol/L BUN 13 (9-20) mg/dL Creatinine 0.83 (0.66-1.25) mg/dL Glucose 107 H (74-99) mg/dL Calcium 10.1 (8.4-10.2) mg/dL AST 30 (17-59) U/L ALT 32 (4-49) U/L Alkaline Phosphatase 47 (38-126) U/L Total Protein 8.0 (6.3-8.2) g/dL Albumin 5.2 H (3.5-5.0) g/dL Calcium panel 03/11/21 Range/Units 17:30 Calcium 10.1 (8.4-10.2) mg/dL Albumin 5.2 H (3.5-5.0) g/dL Pituitary panel 03/11/21 Range/Units 17:30 Sodium 144 (137-145) mmol/L Potassium 4.0 (3.5-5.1) mmol/L Chloride 105 (98-107) mmol/L Carbon Dioxide 28 (22-30) mmol/L BUN 13 (9-20) mg/dL Creatinine 0.83 (0.66-1.25) mg/dL Glucose 107 H (74-99) mg/dL Calcium 10.1 (8.4-10.2) mg/dL Adrenal panel 03/11/21 Range/Units 17:30 Sodium 144 (137-145) mmol/L Potassium 4.0 (3.5-5.1) mmol/L Chloride 105 (98-107) mmol/L Carbon Dioxide 28 (22-30) mmol/L BUN 13 (9-20) mg/dL Creatinine 0.83 (0.66-1.25) mg/dL Glucose 107 H (74-99) mg/dL Calcium 10.1 (8.4-10.2) mg/dL Total Bilirubin 1.1 (0.2-1.3) mg/dL AST 30 (17-59) U/L ALT 32 (4-49) U/L Alkaline Phosphatase 47 (38-126) U/L Total Protein 8.0 (6.3-8.2) g/dL Albumin 5.2 H (3.5-5.0) g/dL
--- NOTE | 2021-03-12 12:54 | P.HPIM ---
History of Present Illness 41-year-old male came in the with the dysphagia and able to tolerate any diet and the multiple episodes of vomiting. Patient says he has a weight loss of around 110 pounds since is a Christopher's fundoplication since then patient was neely ving issues with dysphagia and patient underwent the esophageal dilatation procedures 3 times in the past without any significant improvement. Patient was given couple dosse of Decadron for possible inflammation around the is aphasia stricture. Patient had a CT of the abdomen did show dilated distal esophagus with a little oral contrast passing through the gastroesophageal junction consistent with a stricture. Patient was bit frustrated with multiple hospitalizations. Patient was evaluated by general surgery and they recommended a tertiary facility. Patient's mother was able to found a physician Dr. Narciso Villa at [facility]. Unfortunately that physician out-of-town and try to reach out to his partner with hopes of transferring the patient. Unfortunately I'm unable to reach out to another physician and his group. Patient is medically stable his issue is the unable to tolerate diet because of which I suggested that I would discharge the patient he can go to [facility] ER and possibly get admitted there. REVIEW OF SYSTEMS: CONSTITUTIONAL: No fever, no malaise, no fatigue. HEENT: No recent visual problems or hearing problems. Denied any sore throat. CARDIOVASCULAR: No chest pain, orthopnea, PND, no palpitations, no syncope. PULMONARY: No shortness of breath, no cough, no hemoptysis. GASTROINTESTINAL: No diarrhea, no nausea, no vomiting, no abdominal pain. NEUROLOGICAL: No headaches, no weakness, no numbness. HEMATOLOGICAL: Denies any bleeding or petechiae. GENITOURINARY: Denies any burning micturition, frequency, or urgency. MUSCULOSKELETAL/RHEUMATOLOGICAL: Denies any joint pain, swelling, or any muscle pain. ENDOCRINE: Denies any polyuria or polydipsia. The rest of the 14-point review of systems is negative. PHYSICAL EXAMINATION: GENERAL: The patient is alert and oriented x3, not in any acute distress. Well developed, well nourished. HEENT: Pupils are round and equally reacting to light. EOMI. No scleral icterus. No conjunctival pallor. Normocephalic, atraumatic. No pharyngeal erythema. No thyromegaly. CARDIOVASCULAR: S1 and S2 present. No murmurs, rubs, or gallops. PULMONARY: Chest is clear to auscultation, no wheezing or crackles. ABDOMEN: Soft, nontender, nondistended, normoactive bowel sounds. No palpable organomegaly. MUSCULOSKELETAL: No joint swelling or deformity. EXTREMITIES: No cyanosis, clubbing, or pedal edema. NEUROLOGICAL: Gross neurological examination did not reveal any focal deficits. SKIN: No rashes. Assessment and plan esophageal stricture patient had multiple dilatation procedures in the past and this appears to be compensation of the is Christopher fundoplication. Patient was given Decadron for the inflammation at the GE junction will not try and advance her diet. If patient insists on being evaluated by another surgeon or a general surgeon at a different facility I will discharge the patient and patient will go to that facility. Gas esophageal reflux disease -History of Christopher fundoplication -Dysphagia secondary to esophageal stricture DVT prophylaxis: Past Medical History Past Medical History: GERD/Reflux Additional Past Medical History / Comment(s): kidney stones, hiatial hernia History of Any Multi-Drug Resistant Organisms: None Reported Past Surgical History: Hernia Repair Additional Past Surgical History / Comment(s): bronchoscopy, esophageal dilation 3x, Christopher scar tissue removed Past Anesthesia/Blood Transfusion Reactions: Previous Problems w/ Anesthesia, Motion Sickness Additional Past Anesthesia/Blood Transfusion Reaction / Comment(s): "takes long time to shake out of it -blood pressure drops very low during the middle of the night after procedure" suggested by PCP that be monitored possible overnight in observation Past Psychological History: No Psychological Hx Reported Smoking Status: Never smoker Past Alcohol Use History: None Reported Past Drug Use History: None Reported - Past Family History Mother Family Medical History: Fibromyalgia Medications and Allergies Home Medications Medication Instructions Recorded Confirmed Type Pantoprazole [Protonix] 40 mg PO AC-BRKFST #30 tablet. 02/21/21 03/11/21 Rx hydrOXYzine HCL [Atarax] 10 mg PO HS PRN 03/11/21 03/11/21 History Allergies Allergy/AdvReac Type Severity Reaction Status Date / Time acetaminophen [From Tylenol] Allergy Rash/Hives Verified 03/11/21 17:58 cephalexin [From Keflex] Allergy Rash/Hives Verified 03/11/21 17:58 Penicillins Allergy Rash/Hives Verified 03/11/21 17:58 Physical Exam Vitals: Vital Signs Temp Pulse Pulse Resp BP BP Pulse Ox 03/12/21 07:11 98.3 F 82 17 118/79 96 03/12/21 02:07 97.8 F 78 16 106/71 93 L 03/11/21 22:44 98.5 F 80 16 124/81 94 L 03/11/21 19:30 88 20 112/75 96 03/11/21 16:42 98.1 F 95 20 137/91 99 Intake and Output 03/11/21 03/12/21 03/12/21 22:59 06:59 14:59 Intake Total 600 Balance 600 Intake: Intake, IV Titration 600 Amount Sodium Chloride 0.9% 1, 600 000 ml @ 100 mls/hr IV . Q10H ONE Rx#:[id number] Other: # Voids 1 Weight 97.522 kg Results CBC & Chem 7: 03/11/21 17:30 03/11/21 17:30 Labs: Abnormal Lab Results - Last 24 Hours (Table) 03/11/21 Range/Units 17:30 Glucose 107 H (74-99) mg/dL Albumin 5.2 H (3.5-5.0) g/dL Thrombosis Risk Factor Assmnt - Choose All That Apply Each Factor Represents 1 point: Age 41-60 years Thrombosis Risk Factor Assessment Total Risk Factor Score: 1 Thrombosis Risk Factor Assessment Level: Low Risk
--- NOTE | 2021-03-12 12:56 | P.DS ---
Providers Date of admission: 03/11/21 19:56 Attending physician: Luz Quispe Consults: 03/11/21 19:56 Consult Physician Urgent Consulting Provider: Singh Adair Consult Reason/Comments: Dysphagia Do you want consulting provider notified?: Yes 03/12/21 11:43 Consult Physician Urgent Consulting Provider: Sangeeta Joseph Consult Reason/Comments: Esophageal stricture Do you want consulting provider notified?: Yes Primary care physician: Son Woody [facility] Course: Please of her dementia for further details. The surgeon at [facility] did reach out to me. Discussed the regarding the patient and his findings. He recommended that if patient can't tolerate liquid diet, follow-up as an outpatient on Monday in his office. Although patient wanted to go to [facility] because of which I discharge the patient and patient will go to [facility] Plan - Discharge Summary Discharge Rx Participant: Yes New Discharge Prescriptions: No Action hydrOXYzine HCL [Atarax] 10 mg PO HS PRN PRN Reason: Allergy Symptoms/itching Pantoprazole [Protonix] 40 mg PO AC-BRKFST #30 tablet. Discharge Medication List Pantoprazole [Protonix] 40 mg PO AC-BRKFST #30 tablet. 02/21/21 [Rx] hydrOXYzine HCL [Atarax] 10 mg PO HS PRN 03/11/21 [History] Follow up Appointment(s)/Referral(s): Son Woody MD [Primary Care Provider] - 1-2 days Discharge Disposition: HOME SELF-CARE
[2021-03-12 13:40] VITALS: BMI 29.1
== END 2021-03-12 13:53 | disposition home or self-care (01) ==
LOC: EC 16:31 → 6NMEDSUR 19:56 → 4SSUR 22:06
PROVIDERS: ADMIT Hospitalist; ATTEND Hospitalist
DX: K22.2 Esophageal obstruction (principal); K21.9 Gastro-esophageal reflux disease without esophagitis; Z79.899 Other long term (current) drug therapy; Z88.0 Allergy status to penicillin; Z88.1 Allergy status to other antibiotic agents; Z88.6 Allergy status to analgesic agent; Z87.442 Personal history of urinary calculi; Z98.890 Other specified postprocedural states; Z87.19 Personal history of other diseases of the digestive system; Z82.69 Family history of other diseases of the musculoskeletal system and connective tissue
CPT/HCPCS: 96376 ×2; 96361 ×3; 96375; 96374; 99285; 36415; 80053; 85025; 74150; G0378 ×3; J2060; J1100 ×3; C9113

== ENCOUNTER → 2024-04-17 | Outpatient (CLI) | payer OTHER ==
--- NOTE | 2024-05-07 11:22 | MR ---
Siddhartha Ricci ID: [id number] : 1980 EXAMINATION TYPE: MR shoulder RT wo con DATE OF EXAM: 04/17/2024 COMPARISON: No radiographic correlation available HISTORY: 44-year-old male right shoulder pain TECHNIQUE: Multiplanar, multisequence images of the right shoulder were obtained without IV contrast. FINDINGS: Inhomogeneous appearance to the intracapsular portion of long biceps tendon suggesting tendinosis. Th e extracapsular portion appears to properly situated along the bicipital groove with mild tenosynovia l fluid. Heterogeneous signal with intrasubstance change and fraying involving the superior third aspect of th e subscapularis tendon. Small amount of fluid tracking along the superior myotendinous junction. The majority of the tendon remains intact. There is [id number] degenerative change at the AC joint with spurring and some mild subchondral marrow signal change. Some edematous soft tissue within the rotator cuff interval. No abnormal thickening of the axillary r ecess. No fluid within the subacromial/subdeltoid bursa. There is a tiny 3 x 4 mm bursal sided tear at the footprint of the anterior supraspinatus tendon. Add itional intrasubstance tear measuring 4 x 8 mm at the junction of the supraspinatus and infraspinatus tendons. No high-grade partial or full-thickness tear is identified. No atrophy of the rotator cuff musculature. The glenohumeral joint appears intact without joint effusion. There is linear signal within the superior labrum extending back to the superior aspect of the technical expert ior labrum where a 7 mm para labral cyst is noted. No Hill-Sachs deformity or os acromiale. Some patchy red marrow hyperplasia which can be seen with anemia, obesity, smoking, and chronic disea se. IMPRESSION: 1. (1) Some fraying of the superior third fibers of the subscapularis tendon. (2) Tiny 3 x 4 mm shall ow bursal sided tear of the anterior supraspinatus tendon at its footprint. Also, (3) small, 4 x 8 mm intrasubstance tear at the junction of the supraspinatus/infraspinatus tendon insertion. No high-gra de partial thickness or full-thickness rotator cuff tear seen. 2. Small SLAP tear with a 7 mm paralabral cyst. 3. Some edematous soft tissue in the rotator cuff interval may reflect a mild synovitis. There is adj acent intracapsular long head biceps tendinosis.
== END | disposition home or self-care (01) ==
LOC: RADMRIMAIN 13:15
PROVIDERS: ATTEND Orthopaedic Surgery
DX: M75.111 Incomplete rotator cuff tear or rupture of right shoulder, not specified as traumatic (principal); R60.9 Edema, unspecified